=== PATIENT | female | born 1990 | race Hispanic/Latino ===

== ENCOUNTER 2022-12-30 17:33 | Emergency (ER) | payer OTHER ==
--- OUTSIDE RECORDS SUMMARY | 2022-12-30 17:38 | XMS REPORT | Continuity of Care Document ---
:1990 Author Organization [facility] t Address [address] [place] [address] Care Team Providers Name Role Phone Bryce Varghese Primary Care Physician Sandra Ascencio PA-C Attending Clinician SANDRA ASCENCIO Attending Clinician Unavailable Bryce Varghese Attending Clinician Doctor Unassigned, [place] Attending Clinician Unavailable Saihl Rios MD Attending Clinician Only, [facility] Test Attending Clinician Unavailable Sagar Shea MD Attending Clinician [facility] Attending Clinician Unavailable Ultrasound, Adc Mfm Attending Clinician Unavailable Donya Ramirez MD, [place] Attending Clinician [phone] SAHIL RIOS Attending Clinician Unavailable Lab, Adc Fam Pob I Attending Clinician Unavailable Jania Alarcon Attending Clinician Tom Craft PA-C Attending Clinician JANIA REEVES Attending Clinician Unavailable Ultrasound, Ang-Mfm Attending Clinician Unavailable Natacha Alaniz MD Attending Clinician 2, Adc Lab Attending Clinician Unavailable Jayson Cote MD Attending Clinician SAHIL RIOS Admitting Clinician Unavailable Sahil Rios MD Admitting Clinician Payers Payer Name Policy Type Policy Number Effective Date Expiration Date [facility] [id number] 2020 00:00:00 [employer] [place] - [id number] 2018 OUT OF STATE 00:00:00 Problems Condition Condition Condition Status Onset Resolution Last Treating Co mments Source Name Details Category Date Date Treatment Clinician Date 39 weeks 39 weeks Disease Active Unive rs gestation gestation 3-22 ity of of of 00:00: [place] 00 [facility] Encounter Encounter Disease Active Uni vers for for 3-22 ity of planned planned 00:00: [place] induction induction 00 [facility] of labor of labor [place] Liveborn Liveborn Disease Active Unive rs infant, of infant, of 3-22 [place] y of [place] , , 00 [place] born [facility] by vaginal by vaginal delivery delivery Morbid Morbid Disease Active Univers obesity obesity 3-15 [place] of with body [place] body 00:[place] mass index mass index 00 Me dical of of Branch 40.0-49.9 40.0-49.9 Morbid Morbid Disease Active Univers obesity obesity 3-15 ity of with body with body 00:[place] mass index mass index 00 Me dical of of Branch 40.0-49.9 40.0-49.9 Excessive Excessive Disease Active Uni vers 3-02 ity of growth growth 00:00: [place] affecting affecting 00 [facility] , , Br anch antepartum antepartum , single , single or or unspecifie unspecifie d fetus d fetus Anxiety Anxiety Disease Active 2019-08 Univers disorder, disorder, 09 ity of unspecifie [place] d type 00 [facility] Other Other Disease Active 2019-08 Univers rhinitis rhinitis 09 ity of 00:00: [place] 00 [facility] Branch Obesity Obesity Disease Active Univers (BMI (BMI 8-19 ity of 30-39.9) 30-39.9) 00:00: [place] 00 [facility] High-risk High-risk Disease Active Uni vers 8-19 ity of in third in third 00:00: [place] trimester trimester 00 [facility] Medication Medication Disease Active U nivers exposure exposure 8-19 ity of during during 00:00: [place] first first 00 Medical trimester trimester Bran ch of of Allergies, Adverse Reactions, Alerts Allergy Allergy Status Severity Reaction(s) Onset Inactive Treating Comm ents Source Name Type Date Date Clinician No Known DA Active [facility] NO KNOWN Drug Active Univers ALLERGIE Class ity of S [facility] Social History Social Habit Start Date Stop Date Quantity Comments Source [facility] Exposure to Not sure [facility] SARS-CoV-2 [facility] (event) [place] Alcohol intake 2020-10-22 2020-10-22 [facility]drinker [facility] 00:[facility]:00 00:00:00 (finding) [facility] Tobacco use and 2020-03-21 2020-03-21 Never used Universit y of exposure 00:00:00 00:00:00 [facility] Sex Ass[birth year] At [birth year] Universit y of 00:00:00 00:00:00 [facility] Smoking Status Start Date Stop Date Source Never smoker [facility] Medications Ordered Filled Start Stop Current Ordering Indication Dosage Frequency Signature Comments Components Source Medication Medication Date Date Medication? Clinician (SIG) Name Name LOESTRIN FE 2020-08 Yes [id number] 1{tbl} Take 1 Univers 1 mg-20 mcg 0-04 tablet by ity of (21)/75 mg 00:00: mouth [place] (7) tablet 00 daily. Medical Branch LOESTRIN FE 2020-08 Yes [id number] 1{tbl} Take 1 Univers 1 mg-20 mcg 0-04 tablet by ity of (21)/75 mg 00:00: mouth [place] (7) tablet 00 daily. Medical Branch lisdexamfet Yes Take by Uni vers amine 5-12 mouth. ity of dimesylate 19:38: [place] (VYVANSE 08 Medical ORAL) Branch CLONAZEPAM Yes Take by Univ ers ORAL 5-12 mouth. ity of 19:38: [place] [address] Medical Branch lisdexamfet Yes Take by Uni vers amine 5-12 mouth. ity of dimesylate 19:38: [place] ([place] [address] Medical ORAL) Branch CLONAZEPAM Yes Take by Univ ers ORAL 5-12 mouth. ity of 19:38: [place] [address] Medical Branch lisdexamfet Yes Take by Uni vers amine 5-12 mouth. ity of dimesylate 19:38: [place] ([place] [address] Medical ORAL) Branch CLONAZEPAM Yes Take by Univ ers ORAL 5-12 mouth. ity of 19:38: [place] [address] Medical Branch zolpidem 10 0 Yes 10mg Take 10 mg Univers mg tablet 5-12 by mouth ity of 19:37: at bedtime [place] 24 as needed Medical for Branch Insomnia. zolpidem 10 0 Yes 10mg Take 10 mg Univers mg tablet 5-12 by mouth ity of 19:37: at bedtime [place] 24 as needed Medical for Branch Insomnia. zolpidem 10 0 Yes 10mg Take 10 mg Univers mg tablet 5-12 by mouth ity of 19:37: at bedtime [place] 24 as needed Medical for Branch Insomnia. lisdexamfet Yes Take by Uni vers amine 5-12 mouth. ity of dimesylate 14:38: [place] ([place] [address] Medical ORAL) Branch CLONAZEPAM Yes Take by Univ ers ORAL 5-12 mouth. ity of 14:38: [place] [address] Medical Branch lisdexamfet Yes Take by Uni vers amine 5-12 mouth. ity of dimesylate 14:38: [place] [address] Medical ORAL) Branch CLONAZEPAM Yes Take by Univ ers ORAL 5-12 mouth. ity of 14:38: [place] [address] Medical Branch zolpidem 10 0 Yes 10mg Take 10 mg Univers mg tablet 5-12 by mouth ity of 14:37: at bedtime [place] 24 as needed Medical for Branch Insomnia. zolpidem 10 2020-0 Yes 10mg Take 10 mg Univers mg tablet 5-12 by mouth ity of 14:37: at bedtime [place] 24 as needed Medical for Branch Insomnia. LOESTRIN FE Yes [id number] 1{tbl} Take 1 Univers 1 mg-20 mcg 5-12 tablet by ity of (21)/75 mg 00:00: mouth [place] (7) tablet 00 daily. Medical Branch SERTraline Yes [id number] 25mg Take 1 U nivers (ZOLOFT) 25 5-12 tablet by ity of mg tablet 00:00: mouth [place] 00 daily. Medical Branch LOESTRIN FE Yes [id number] 1{tbl} Take 1 Univers 1 mg-20 mcg 5-12 tablet by ity of (21)/75 mg 00:00: mouth [place] (7) tablet 00 daily. Medical Branch SERTraline Yes [id number] 25mg Take 1 U nivers (ZOLOFT) 25 5-12 tablet by ity of mg tablet 00:00: mouth [place] 00 daily. Medical Branch LOESTRIN FE Yes [id number] 1{tbl} Take 1 Univers 1 mg-20 mcg 5-12 tablet by ity of (21)/75 mg 00:00: mouth [place] (7) tablet 00 daily. Medical Branch SERTraline Yes [id number] 25mg Take 1 U nivers (ZOLOFT) 25 5-12 tablet by ity of mg tablet 00:00: mouth [place] 00 daily. Medical Branch SERTraline Yes [id number] 25mg Take 1 U nivers (ZOLOFT) 25 5-12 tablet by ity of mg tablet 00:00: mouth [place] 00 daily. Medical Branch SERTraline Yes [id number] 25mg Take 1 U nivers (ZOLOFT) 25 5-12 tablet by ity of mg tablet 00:00: mouth [place] 00 daily. Medical Branch LOESTRIN FE 2020- No [id number] 1{tbl} Take 1 Univers 1 mg-20 mcg 5-12 10-04 tablet by it y of (21)/75 mg 00:00: 00:00 mouth [place] (7) tablet 00 :00 daily. Medical Branch LOESTRIN FE Yes [id number] 1{tbl} Take 1 Univers 1 mg-20 mcg 4-13 tablet by ity of (21)/75 mg 00:00: mouth [place] (7) tablet 00 daily. [facility] Branch LOESTRIN FE Yes [id number] 1{tbl} Take 1 Univers 1 mg-20 mcg 4-13 tablet by ity of (21)/75 mg 00:00: mouth [place] (7) tablet 00 daily. [facility] Branch LOESTRIN FE Yes [id number] 1{tbl} Take 1 Univers 1 mg-20 mcg 4-13 tablet by ity of (21)/75 mg 00:00: mouth [place] (7) tablet 00 daily. [facility] Branch LOESTRIN FE 2020- No [id number] 1{tbl} Take 1 Univers 1 mg-20 mcg 4-13 05-12 tablet by it y of (21)/75 mg 00:00: 00:00 mouth [place] (7) tablet 00 :00 daily. [facility] Branch LOESTRIN FE 2020- No [id number] 1{tbl} Take 1 Univers 1 mg-20 mcg 4-13 05-12 tablet by it y of (21)/75 mg 00:00: 00:00 mouth [place] (7) tablet 00 :00 daily. Medical Branch norethindro Yes [id number] 1{tbl} Take 1 Univers ne 0.35 mg 4-12 tablet by ity of tablet 00:00: mouth [place] 00 daily. Medical Branch SERTraline Yes [id number] 25mg Take 1 U nivers (ZOLOFT) 25 4-12 tablet by ity of mg tablet 00:00: mouth [place] 00 daily. Medical Branch SERTraline Yes [id number] 25mg Take 1 U nivers (ZOLOFT) 25 4-12 tablet by ity of mg tablet 00:00: mouth [place] 00 daily. [facility] Branch SERTraline Yes [id number] 25mg Take 1 U nivers (ZOLOFT) 25 4-12 tablet by ity of mg tablet 00:00: mouth [place] 00 daily. [facility] Branch SERTraline Yes [id number] 25mg Take 1 U nivers (ZOLOFT) 25 4-12 tablet by ity of mg tablet 00:00: mouth [place] 00 daily. Medical Branch SERTraline 2020- No [id number] 25mg Take 1 Univers (ZOLOFT) 25 4-12 05-12 tablet by it y of mg tablet 00:00: 00:00 mouth [place] 00 :00 daily. Medical Branch SERTraline 2020- No [id number] 25mg Take 1 Univers (ZOLOFT) 25 4-12 05-12 tablet by it y of mg tablet 00:00: 00:00 mouth [place] 00 :00 daily. Medical Branch norethindro 2020- No [id number] 1{tbl} Take 1 Univers ne 0.35 mg 4-12 -13 tablet by ity of tablet 00:00: 00:00 mouth [place] 00 :00 daily. Medical Branch zolpidem 10 Yes 10mg Take 10 mg Univers mg tablet 3-24 by mouth ity of 02:24: at bedtime [place] 59 as needed Medical for Branch Insomnia. levocetiriz Yes 5mg Take 5 mg U nivers ine (XYZAL) 3-24 by mouth ity of 5 mg tablet 02:24: every [place] 59 evening. Medical Branch zolpidem 10 Yes 10mg Take 10 mg Univers mg tablet 3-24 by mouth ity of 02:24: at bedtime [place] 59 as needed Medical for Branch Insomnia. levocetiriz Yes 5mg Take 5 mg U nivers ine (XYZAL) 3-24 by mouth ity of 5 mg tablet 02:24: every [place] 59 evening. Medical Branch zolpidem 10 Yes 10mg Take 10 mg Univers mg tablet 3-24 by mouth ity of 02:24: at bedtime [place] 59 as needed Medical for Branch Insomnia. levocetiriz Yes 5mg Take 5 mg U nivers ine (XYZAL) 3-24 by mouth ity of 5 mg tablet 02:24: every [place] 59 evening. Medical Branch zolpidem 10 Yes 10mg Take 10 mg Univers mg tablet 3-24 by mouth ity of 02:24: at bedtime [place] 59 as needed Medical for Branch Insomnia. levocetiriz 0 Yes 5mg Take 5 mg U nivers ine (XYZAL) 3-24 by mouth ity of 5 mg tablet 02:24: every [place] 59 evening. Medical Branch zolpidem 10 Yes 10mg Take 10 mg Univers mg tablet 3-24 by mouth ity of 02:24: at bedtime [place] 59 as needed Medical for Branch Insomnia. levocetiriz Yes 5mg Take 5 mg U nivers ine (XYZAL) 3-24 by mouth ity of 5 mg tablet 02:24: every [place] 59 evening. [facility] Branch zolpidem 10 0 Yes 10mg Take 10 mg Univers mg tablet 3-24 by mouth ity of 02:24: at bedtime [place] 59 as needed Medical for Branch Insomnia. levocetiriz Yes 5mg Take 5 mg U nivers ine (XYZAL) 3-24 by mouth ity of 5 mg tablet 02:24: every [place] 59 evening. Medical Branch levocetiriz Yes 5mg Take 5 mg U nivers ine (XYZAL) 3-24 by mouth ity of 5 mg tablet 02:24: every [place] 59 evening. Medical Branch levocetiriz Yes 5mg Take 5 mg U nivers ine (XYZAL) 3-24 by mouth ity of 5 mg tablet 02:24: every [place] 59 evening. [facility] Branch levocetiriz Yes 5mg Take 5 mg U nivers ine (XYZAL) 3-24 by mouth ity of 5 mg tablet 02:24: every [place] 59 evening. [facility] Branch levocetiriz Yes 5mg Take 5 mg U nivers ine (XYZAL) 3-23 by mouth ity of 5 mg tablet 21:24: every [place] 59 evening. [facility] Branch levocetiriz 0 Yes 5mg Take 5 mg U nivers ine (XYZAL) 3-23 by mouth ity of 5 mg tablet 21:24: every [place] 59 evening. [facility] busPIRone Yes 5mg 5 mg, Univers (BUSPAR) 3-23 Oral, BID, ity o f tablet 5 mg 01:00: First dose [place] 00 on Mon Medical 10/22/20 at [place] 1999, Until Discontinu ed, Routine rho(D) Yes 300ug 300 mcg, Univer s immune 3-23 Intramuscu ity of globulin 00:02: lar, ONCE, [place] (RHOGAM) 41 For 1 Medical syringe 300 dose, [place] mcg Conditiona l, Routine witch Ingrid 2020-0 Yes Topical, Un syed (TUCKS) 50 3-23 Q4HPRN, ity of % topical 00:02: Starting [place] pad 35 Mon [facility] 10/22/20 at [place] 1902, Until Discontinu ed, Routine, rectal/hem orrhoidal pain HYDROcodone 2020-0 Yes 1{tbl} 1 tablet, Univers -acetaminop 3-23 Oral, ity of hen (NORCO 00:02: Q6HPRN, [place] 5) 5-325 mg 35 Starting Medi juvenal tablet 1 [facility] tablet 10/22/20 at 1902, Until Discontinu ed, Routine, Pain (scale 7-10) ibuprofen 2020-0 Yes 600mg 600 mg, Univ ers (IBU) 3-23 Oral, ity of tablet 600 00:02: Q6HPRN, [place] mg 35 Starting Medical Mon [place] 10/22/20 at 1902, Until Discontinu ed, Routine, Pain (scale 4-6) acetaminoph 2020-0 Yes 650mg 650 mg, Un syed en 3-23 Oral, ity of (TYLENOL) 00:02: Q6HPRN, [place] tablet 650 35 Starting Medic al mg [facility] 10/22/20 at 1902, Until Discontinu ed, Routine, Pain (scale 1-3) diphenhydrA 2020-0 Yes 25mg 25 mg, Univ ers MINE 3-23 Oral, ity of (BENADRYL) 00:02: Q6HPRN, [place] tablet 25 35 Starting Medica l mg [facility] 10/22/20 at 1902, Until Discontinu ed, Routine, Sleep, Itching diphenhydrA 2020-0 Yes 25mg 25 mg, IV U nivers MINE-0.9 % 3-23 Piggyback, ity of sod.chlr 00:02: Administer [place] (BENADRYL) 35 over 30 Medica l 25 mg/50 mL Minutes, Bran ch piggyback Q6HPRN, 25 mg Starting [facility] 10/22/20 at 1902, Until Discontinu ed, Routine, Itching ondansetron Yes 4mg 4 mg, Slow Univers (ZOFRAN 3-23 IV Push, ity of (PF)) 00:02: Q8HPRN, [place] injection 4 35 Starting Medi juvenal mg Mon Branch 10/22/20 at 1902, Until Discontinu ed, Routine, Nausea and Vomiting (N/V) simethicone 0 Yes 160mg 160 mg, Un syed (GAS RELIEF 3-23 Oral, ity of (SIMETHICON 00:02: PC+HSPRN, [place] E)) 35 Starting Medical chewable Mon Branch tablet 160 10/22/20 at mg 1902, Until Discontinu ed, Routine, Gas magnesium 0 Yes 30mL 30 mL, Univer s hydroxide 3-23 Oral, ity of (MILK OF 00:02: QDAILYPRN, [place] MAGNESIA) 35 Starting Medica l 400 mg/5 mL Mon Branch suspension 10/22/20 at 30 mL 1902, Until Discontinu ed, Routine, Constipati on benzocaine- Yes Topical, Un syed menthol 3-23 PRN, ity of (DERMOPLAST 00:02: [place] 20-0.5 % 35 Mon Medical topical 10/22/20 at Branch spray 1902, Until Discontinu ed, Routine, Perineum discomfort Yes [id number] 1{tbl} Take 1 U nivers vitamin 3-23 tablet by ity of w/FA tablet 00:00: mouth [place] 00 daily. Medical Branch docusate Yes [id number] 240mg Take 1 Un syed calcium 240 3-23 capsule by it y of mg capsule 00:00: mouth once [place] 00 daily as Medical needed for Branch Constipati on. ferrous Yes [id number] 325mg Take 1 Uni vers sulfate 325 3-23 tablet by ity of mg (65 mg 00:00: mouth 2 [place] iron) 00 (two) Medical tablet times Branch daily. ibuprofen Yes [id number] 600mg Take 1 U nivers 600 mg 3-23 tablet by ity of tablet 00:00: mouth [place] 00 every 6 Medical (six) Branch hours as needed (Pain). Take with food or milk. Yes [id number] 1{tbl} Take 1 U nivers vitamin 3-23 tablet by ity of w/FA tablet 00:00: mouth [place] 00 daily. Medical Branch docusate Yes [id number] 240mg Take 1 Un syed calcium 240 3-23 capsule by it y of mg capsule 00:00: mouth once [place] 00 daily as Medical needed for Branch Constipati on. ferrous Yes [id number] 325mg Take 1 Uni vers sulfate 325 3-23 tablet by ity of mg (65 mg 00:00: mouth 2 [place] iron) 00 (two) Medical tablet times Branch daily. ibuprofen Yes [id number] 600mg Take 1 U nivers 600 mg 3-23 tablet by ity of tablet 00:00: mouth [place] 00 every 6 Medical (six) Branch hours as needed (Pain). Take with food or milk. Yes [id number] 1{tbl} Take 1 U nivers vitamin 3-23 tablet by ity of w/FA tablet 00:00: mouth [place] 00 daily. Medical Branch docusate Yes [id number] 240mg Take 1 Un syed calcium 240 3-23 capsule by it y of mg capsule 00:00: mouth once [place] 00 daily as Medical needed for Branch Constipati on. ferrous Yes [id number] 325mg Take 1 Uni vers sulfate 325 3-23 tablet by ity of mg (65 mg 00:00: mouth 2 [place] iron) 00 (two) Medical tablet times Branch daily. ibuprofen Yes [id number] 600mg Take 1 U nivers 600 mg 3-23 tablet by ity of tablet 00:00: mouth [place] 00 every 6 Medical (six) Branch hours as needed (Pain). Take with food or milk. Yes [id number] 1{tbl} Take 1 U nivers vitamin 3-23 tablet by ity of w/FA tablet 00:00: mouth [place] 00 daily. Medical Branch docusate Yes [id number] 240mg Take 1 Un syed calcium 240 3-23 capsule by it y of mg capsule 00:00: mouth once [place] 00 daily as Medical needed for Branch Constipati on. ferrous Yes [id number] 325mg Take 1 Uni vers sulfate 325 3-23 tablet by ity of mg (65 mg 00:00: mouth 2 [place] iron) 00 (two) Medical tablet times Branch daily. ibuprofen 2020-0 Yes [id number] 600mg Take 1 U nivers 600 mg 3-23 tablet by ity of tablet 00:00: mouth [place] 00 every 6 Medical (six) Branch hours as needed (Pain). Take with food or milk. 2020-0 Yes [id number] 1{tbl} Take 1 U nivers vitamin 3-23 tablet by ity of w/FA tablet 00:00: mouth [place] 00 daily. Medical Branch docusate 0 Yes [id number] 240mg Take 1 Un syed calcium 240 3-23 capsule by it y of mg capsule 00:00: mouth once [place] 00 daily as Medical needed for Branch Constipati on. ferrous 2020-0 Yes [id number] 325mg Take 1 Uni vers sulfate 325 3-23 tablet by ity of mg (65 mg 00:00: mouth 2 [place] iron) 00 (two) Medical tablet times Branch daily. ibuprofen 2020-0 Yes [id number] 600mg Take 1 U nivers 600 mg 3-23 tablet by ity of tablet 00:00: mouth [place] 00 every 6 Medical (six) Branch hours as needed (Pain). Take with food or milk. 2020-0 Yes [id number] 1{tbl} Take 1 U nivers vitamin 3-23 tablet by ity of w/FA tablet 00:00: mouth [place] 00 daily. Medical Branch docusate 0 Yes [id number] 240mg Take 1 Un syed calcium 240 3-23 capsule by it y of mg capsule 00:00: mouth once [place] 00 daily as Medical needed for Branch Constipati on. ferrous 2020-0 Yes [id number] 325mg Take 1 Uni vers sulfate 325 3-23 tablet by ity of mg (65 mg 00:00: mouth 2 [place] iron) 00 (two) Medical tablet times Branch daily. ibuprofen 2020-0 Yes [id number] 600mg Take 1 U nivers 600 mg 3-23 tablet by ity of tablet 00:00: mouth [place] 00 every 6 Medical (six) Branch hours as needed (Pain). Take with food or milk. 2020-0 Yes [id number] 1{tbl} Take 1 U nivers vitamin 3-23 tablet by ity of w/FA tablet 00:00: mouth [place] 00 daily. Medical Branch docusate 0 Yes [id number] 240mg Take 1 Un syed calcium 240 3-23 capsule by it y of mg capsule 00:00: mouth once [place] 00 daily as Medical needed for Branch Constipati on. ferrous 2020-0 Yes [id number] 325mg Take 1 Uni vers sulfate 325 3-23 tablet by ity of mg (65 mg 00:00: mouth 2 [place] iron) 00 (two) Medical tablet times Branch daily. ibuprofen 2020-0 Yes [id number] 600mg Take 1 U nivers 600 mg 3-23 tablet by ity of tablet 00:00: mouth [place] 00 every 6 Medical (six) Branch hours as needed (Pain). Take with food or milk. 2020-0 Yes [id number] 1{tbl} Take 1 U nivers vitamin 3-23 tablet by ity of w/FA tablet 00:00: mouth [place] 00 daily. Medical Branch docusate Yes [id number] 240mg Take 1 Un syed calcium 240 3-23 capsule by it y of mg capsule 00:00: mouth once [place] 00 daily as Medical needed for Branch Constipati on. ferrous 2020-0 Yes [id number] 325mg Take 1 Uni vers sulfate 325 3-23 tablet by ity of mg (65 mg 00:00: mouth 2 [place] iron) 00 (two) Medical tablet times Branch daily. ibuprofen 0 Yes [id number] 600mg Take 1 U nivers 600 mg 3-23 tablet by ity of tablet 00:00: mouth [place] 00 every 6 Medical (six) Branch hours as needed (Pain). Take with food or milk. 2020-0 Yes [id number] 1{tbl} Take 1 U nivers vitamin 3-23 tablet by ity of w/FA tablet 00:00: mouth [place] 00 daily. Medical Branch docusate 0 Yes [id number] 240mg Take 1 Un syed calcium 240 3-23 capsule by it y of mg capsule 00:00: mouth once [place] 00 daily as Medical needed for Branch Constipati on. ferrous 2020-0 Yes [id number] 325mg Take 1 Uni vers sulfate 325 3-23 tablet by ity of mg (65 mg 00:00: mouth 2 [place] iron) 00 (two) Medical tablet times Branch daily. ibuprofen 2021-0 Yes [id number] 600mg Take 1 U nivers 600 mg 3-23 tablet by ity of tablet 00:00: mouth [place] 00 every 6 Medical (six) Branch hours as needed (Pain). Take with food or milk. Yes [id number] 1{tbl} Take 1 U nivers vitamin 3-23 tablet by ity of w/FA tablet 00:00: mouth [place] 00 daily. Medical Branch docusate 0 Yes [id number] 240mg Take 1 Un syed calcium 240 3-23 capsule by it y of mg capsule 00:00: mouth once [place] 00 daily as Medical needed for Branch Constipati on. ferrous Yes [id number] 325mg Take 1 Uni vers sulfate 325 3-23 tablet by ity of mg (65 mg 00:00: mouth 2 [place] iron) 00 (two) Medical tablet times Branch daily. ibuprofen Yes [id number] 600mg Take 1 U nivers 600 mg 3-23 tablet by ity of tablet 00:00: mouth [place] 00 every 6 Medical (six) Branch hours as needed (Pain). Take with food or milk. Yes [id number] 1{tbl} Take 1 U nivers vitamin 3-23 tablet by ity of w/FA tablet 00:00: mouth [place] 00 daily. Medical Branch docusate 0 Yes [id number] 240mg Take 1 Un syed calcium 240 3-23 capsule by it y of mg capsule 00:00: mouth once [place] 00 daily as Medical needed for Branch Constipati on. ferrous 0 Yes [id number] 325mg Take 1 Uni vers sulfate 325 3-23 tablet by ity of mg (65 mg 00:00: mouth 2 [place] iron) 00 (two) Medical tablet times Branch daily. ibuprofen 0 Yes [id number] 600mg Take 1 U nivers 600 mg 3-23 tablet by ity of tablet 00:00: mouth [place] 00 every 6 Medical (six) Branch hours as needed (Pain). Take with food or milk. LR 1000 mL 2020-0 202- No 125mL/h 125 mL/hr, Univers + oxytocin 10-22 IV ity of 20 units IV 22:45: 22:24 Infusion, [place] Solution 00 :00 ONCE, Mon Medica l 10/22/20 at Branch 1745, For 1 dose
In fuse 999 mL /hr & amp;nbsp;o héctor 30 minutes and then decrease rate to 125 mL/hr for the remainder.
D5W-LR IV 2020- No 1000mL at 125 Uni vers infusion 10-22 mL/hr, IV ity o f 1,000 mL 09:45: 00:02 Infusion, [place] 00 :41 CONTINUOUS Medical , Starting Branch 10/22/20 at 0445, Until Thu10/22/20 at 1902, Routine lactated 2020- No 500mL at 999 Unive rs ringers IV 10-22 mL/hr, 500 it y of infusion 09:45: 14:05 mL, IV [place] 500 mL 00 :00 Infusion, Medical ONCE, 1 Branch dose, Thu10/22/20 at 0445, Routine lactated 2020- No 500mL at 999 Unive rs ringers IV 10-22 mL/hr, 500 it y of infusion 09:39: 00:02 mL, IV [place] 500 mL 11 :41 Infusion, Medical PRN - SEE Branch INSTRUCTIO NS, Starting Thu10/22/20 at 0439, Until Thu10/22/20 at 190, Routine FENTanyl PF 2020- No 100ug 100 mcg, Univers (SUBLIMAZE 10-22 Slow IV ity o f (PF)) 09:39: 00:02 Push, [place] injection 11 :41 Q1HPRN, Medical 100 mcg Starting Branch Thu10/22/20 at 0439, Until Thu10/22/20 at 1902, Routine, contractio n pain without an epidural and SVE < 8 cm and Cat I strip LR 1000 mL 2020- No 2mU/min 2-40 Uni vers + oxytocin 10-22 jimmie-unit it y of 20 units IV 09:39: 00:02 s/min [place] Solution 11 :41 (6-120 Medical mL/hr), IV Branch Infusion, TITRATE, Oxytocin Induction / Augmentati on of Labor, Starting Thu10/22/20 at 0439
In fuse IV through a controlled infusion pump at a proximal port on the peripheral IV line.&nbsp ; Sta rt at 2 jimmie-unit s/min and increase by 2 jimmie-unit s/min every 20 minutes according to oxytocin policy 7.11.52.&n bsp; Going over 20 jimmie-unit s/min requires faculty approval.& nbsp;&nbsp ;Max 40 jimmie-unit s/min.
sodium No 30mL 30 mL, Univers citrate-cit 10-2222 Oral, ity of augustin acid 09:39: 14:06 PRE-PROCED [place] (BICITRA) 11 :00 URE ONCE, Medic al [id number] 1 dose, Branch mg/5 mL Starting solution 30 Mon mL 10/22/20 at 0439, Until 10/22/20 at 0906, Routine, Surgery/Pr ocedure docusate Yes [id number] 100mg Take 1 Un syed (COLACE) 2-22 capsule by ity o f 100 mg 00:00: mouth [place] capsule 00 daily. [facility] Branch docusate Yes [id number] 100mg Take 1 Un syed (COLACE) 2-22 capsule by ity o f 100 mg 00:00: mouth [place] capsule 00 daily. [facility] Branch docusate Yes [id number] 100mg Take 1 Un syed (COLACE) 2-22 capsule by ity o f 100 mg 00:00: mouth [place] capsule 00 daily. [facility] Branch docusate Yes [id number] 100mg Take 1 Un syed (COLACE) 2-22 capsule by ity o f 100 mg 00:00: mouth [place] capsule 00 daily. [facility] Branch docusate Yes [id number] 100mg Take 1 Un syed (COLACE) 2-22 capsule by ity o f 100 mg 00:00: mouth [place] capsule 00 daily. [facility] Branch docusate Yes [id number] 100mg Take 1 Un syed (COLACE) 2-22 capsule by ity o f 100 mg 00:00: mouth [place] capsule 00 daily. [facility] Branch docusate Yes [id number] 100mg Take 1 Un syed (COLACE) 2-22 capsule by ity o f 100 mg 00:00: mouth [place] capsule 00 daily. Medical Branch docusate Yes [id number] 100mg Take 1 Un syed (COLACE) 2-22 capsule by ity o f 100 mg 00:00: mouth [place] capsule 00 daily. Medical Branch docusate Yes [id number] 100mg Take 1 Un syed (COLACE) 2-22 capsule by ity o f 100 mg 00:00: mouth [place] capsule 00 daily. Medical Branch docusate Yes [id number] 100mg Take 1 Un syed (COLACE) 2-22 capsule by ity o f 100 mg 00:00: mouth [place] capsule 00 daily. Medical Branch docusate Yes [id number] 100mg Take 1 Un syed (COLACE) 2-22 capsule by ity o f 100 mg 00:00: mouth [place] capsule 00 daily. Medical Branch docusate Yes [id number] 100mg Take 1 Un syed (COLACE) 2-22 capsule by ity o f 100 mg 00:00: mouth [place] capsule 00 daily. Medical Branch docusate Yes [id number] 100mg Take 1 Un syed (COLACE) 2-22 capsule by ity o f 100 mg 00:00: mouth [place] capsule 00 daily. Medical Branch docusate Yes [id number] 100mg Take 1 Un syed (COLACE) 2-22 capsule by ity o f 100 mg 00:00: mouth [place] capsule 00 daily. [facility] Branch docusate Yes [id number] 100mg Take 1 Un syed (COLACE) 2-22 capsule by ity o f 100 mg 00:00: mouth [place] capsule 00 daily. Medical Branch docusate Yes [id number] 100mg Take 1 Un syed (COLACE) 2-22 capsule by ity o f 100 mg 00:00: mouth [place] capsule 00 daily. Medical Branch docusate Yes [id number] 100mg Take 1 Un syed (COLACE) 2-22 capsule by ity o f 100 mg 00:00: mouth [place] capsule 00 daily. [facility] Branch docusate Yes [id number] 100mg Take 1 Un syed (COLACE) 2-22 capsule by ity o f 100 mg 00:00: mouth [place] capsule 00 daily. Medical Branch docusate 2021-0 Yes [id number] 100mg Take 1 Un syed (COLACE) 2-22 capsule by ity o f 100 mg 00:00: mouth [place] capsule 00 daily. Medical Branch docusate 0 Yes [id number] 100mg Take 1 Un syed (COLACE) 2-22 capsule by ity o f 100 mg 00:00: mouth [place] capsule 00 daily. Medical Branch docusate Yes [id number] 100mg Take 1 Un syed (COLACE) 2-22 capsule by ity o f 100 mg 00:00: mouth [place] capsule 00 daily. Medical Branch BUSPIRONE 5 0 Yes [id number] TAKE 1 Univers mg tablet 1-27 TABLET BY ity o f 00:00: MOUTH [place] 00 TWICE A Medical DAY Branch BUSPIRONE 5 0 Yes TAKE 1 Univers mg tablet 1-27 TABLET BY ity o f 00:00: MOUTH [place] 00 TWICE A Medical DAY Branch BUSPIRONE 5 2020-0 Yes TAKE 1 Univers mg tablet 1-27 TABLET BY ity o f 00:00: MOUTH [place] 00 TWICE A Medical DAY Branch BUSPIRONE 5 2020-0 Yes TAKE 1 Univers mg tablet 1-27 TABLET BY ity o f 00:00: MOUTH [place] 00 TWICE A Medical DAY Branch BUSPIRONE 5 2020-0 Yes TAKE 1 Univers mg tablet 1-27 TABLET BY ity o f 00:00: MOUTH [place] 00 TWICE A Medical DAY Branch BUSPIRONE 5 2020-0 Yes TAKE 1 Univers mg tablet 1-27 TABLET BY ity o f 00:00: MOUTH [place] 00 TWICE A Medical DAY Branch BUSPIRONE 5 2020-0 Yes TAKE 1 Univers mg tablet 1-27 TABLET BY ity o f 00:00: MOUTH [place] 00 TWICE A Medical DAY Branch BUSPIRONE 5 2020-0 Yes TAKE 1 Univers mg tablet 1-27 TABLET BY ity o f 00:00: MOUTH [place] 00 TWICE A Medical DAY Branch BUSPIRONE 5 2020-0 Yes TAKE 1 Univers mg tablet 1-27 TABLET BY ity o f 00:00: MOUTH [place] 00 TWICE A Medical DAY Branch BUSPIRONE 5 2020-0 Yes TAKE 1 Univers mg tablet 1-27 TABLET BY ity o f 00:00: MOUTH 00 TWICE A Medical DAY Branch BUSPIRONE 5 2020-0 Yes [id number] TAKE 1 Univers mg tablet 1-27 TABLET BY ity o f 00:00: MOUTH 00 TWICE A Medical DAY Branch BUSPIRONE 5 2020-0 Yes [id number] TAKE 1 Univers mg tablet 1-27 TABLET BY ity o f 00:00: MOUTH 00 TWICE A Medical DAY Branch BUSPIRONE 5 2020-0 Yes [id number] TAKE 1 Univers mg tablet 1-27 TABLET BY ity o f 00:00: MOUTH 00 TWICE A Medical DAY Branch BUSPIRONE 5 2020-0 Yes [id number] TAKE 1 Univers mg tablet 1-27 TABLET BY ity o f 00:00: MOUTH 00 TWICE A Medical DAY Branch BUSPIRONE 5 2020-0 Yes [id number] TAKE 1 Univers mg tablet 1-27 TABLET BY ity o f 00:00: MOUTH 00 TWICE A Medical DAY Branch BUSPIRONE 5 2020-0 Yes [id number] TAKE 1 Univers mg tablet 1-27 TABLET BY ity o f 00:00: MOUTH 00 TWICE A Medical DAY Branch BUSPIRONE 5 2020-0 Yes [id number] TAKE 1 Univers mg tablet 1-27 TABLET BY ity o f 00:00: MOUTH TWICE A Medical DAY Branch BUSPIRONE 5 2020-0 Yes [id number] TAKE 1 Univers mg tablet 1-27 TABLET BY ity o f 00:00: MOUTH 00 TWICE A Medical DAY Branch BUSPIRONE 5 2020-0 Yes [id number] TAKE 1 Univers mg tablet 1-27 TABLET BY ity o f 00:00: MOUTH 00 TWICE A Medical DAY Branch BUSPIRONE 5 2020-0 Yes [id number] TAKE 1 Univers mg tablet 1-27 TABLET BY ity o f 00:00: MOUTH 00 TWICE A Medical DAY Branch BUSPIRONE 5 2020-0 Yes [id number] TAKE 1 Univers mg tablet 1-27 TABLET BY ity o f 00:00: MOUTH 00 TWICE A Medical DAY Branch BUSPIRONE 5 2020-0 Yes [id number] TAKE 1 Univers mg tablet 1-27 TABLET BY ity o f 00:00: MOUTH 00 TWICE A Medical DAY Branch BUSPIRONE 5 2020-0 Yes [id number] TAKE 1 Univers mg tablet 1-27 TABLET BY ity o f 00:00: MOUTH [place] 00 TWICE A Medical DAY Branch lisdexamfet 2019-08- No 30mg Take 30 mg Univers amine 2-14 12-14 by mouth ity of (VYVANSE) 16:30: 00:00 every [place] 30 mg 11 :00 morning. Medical capsule Branch clonazePAM 2019-08- No 1mg Take 1 mg U nivers 1 mg tablet 2-14 12-14 by mouth 3 i ty of 16:30: 00:00 (three) [place] 05 :00 times Medical daily. Branch levocetiriz 2019-08 Yes 5mg Take 5 mg U nivers ine (XYZAL) 2-14 by mouth ity of 5 mg tablet 15:23: every [place] 58 evening. Medical Branch levocetiriz 2019-08 Yes 5mg Take 5 mg U nivers ine (XYZAL) 2-14 by mouth ity of 5 mg tablet 15:23: every [place] 58 evening. Medical Branch levocetiriz 2019-08 Yes 5mg Take 5 mg U nivers ine (XYZAL) 2-14 by mouth ity of 5 mg tablet 15:23: every [place] 58 evening. Medical Branch levocetiriz 2019-08 Yes 5mg Take 5 mg U nivers ine (XYZAL) 2-14 by mouth ity of 5 mg tablet 15:23: every [place] 58 evening. Medical Branch levocetiriz 2019-08 Yes 5mg Take 5 mg U nivers ine (XYZAL) 2-14 by mouth ity of 5 mg tablet 15:23: every [place] 58 evening. Medical Branch levocetiriz 2019-08 Yes 5mg Take 5 mg U nivers ine (XYZAL) 2-14 by mouth ity of 5 mg tablet 15:23: every [place] 58 evening. Medical Branch levocetiriz 2019-08 Yes 5mg Take 5 mg U nivers ine (XYZAL) 2-14 by mouth ity of 5 mg tablet 15:23: every [place] 58 evening. Medical Branch levocetiriz 2019-08 Yes 5mg Take 5 mg U nivers ine (XYZAL) 2-14 by mouth ity of 5 mg tablet 15:23: every [place] 58 evening. Medical Branch levocetiriz 2019-08 Yes 5mg Take 5 mg U nivers ine (XYZAL) 2-14 by mouth ity of 5 mg tablet 15:23: every [place] 58 evening. Medical Branch levocetiriz 2019- Yes 5mg Take 5 mg U nivers ine (XYZAL) 2-14 by mouth ity of 5 mg tablet 15:23: every [place] 58 evening. Medical Branch levocetiriz 2019-08 Yes 5mg Take 5 mg U nivers ine (XYZAL) 2-14 by mouth ity of 5 mg tablet 15:23: every [place] 58 evening. Medical Branch levocetiriz 2019- Yes 5mg Take 5 mg U nivers ine (XYZAL) 2-14 by mouth ity of 5 mg tablet 15:23: every [place] 58 evening. Medical Branch levocetiriz 2019-08 Yes 5mg Take 5 mg U nivers ine (XYZAL) 2-14 by mouth ity of 5 mg tablet 15:23: every [place] 58 evening. Medical Branch levocetiriz 2019-08 Yes 5mg Take 5 mg U nivers ine (XYZAL) 2-14 by mouth ity of 5 mg tablet 15:23: every [place] 58 evening. Medical Branch levocetiriz 2019-08 Yes 5mg Take 5 mg U nivers ine (XYZAL) 2-14 by mouth ity of 5 mg tablet 15:23: every [place] 58 evening. Medical Branch levocetiriz 2019-08 Yes 5mg Take 5 mg U nivers ine (XYZAL) 2-14 by mouth ity of 5 mg tablet 15:23: every [place] 58 evening. Medical Branch levocetiriz 2019-08 Yes 5mg Take 5 mg U nivers ine (XYZAL) 2-14 by mouth ity of 5 mg tablet 15:23: every [place] 58 evening. Medical Branch levocetiriz 2019-08 Yes 5mg Take 5 mg U nivers ine (XYZAL) 2-14 by mouth ity of 5 mg tablet 15:23: every [place] 58 evening. Medical Branch levocetiriz 2019-08 Yes 5mg Take 5 mg U nivers ine (XYZAL) 2-14 by mouth ity of 5 mg tablet 15:23: every [place] 58 evening. Medical Branch levocetiriz 2019- Yes 5mg Take 5 mg U nivers ine (XYZAL) 2-14 by mouth ity of 5 mg tablet 15:23: every [place] 58 evening. Medical Branch clonazePAM 2019-08 Yes 1mg Take 1 mg Un syed 1 mg tablet 1-10 by mouth 3 it y of 03:26: (three) [place] 57 times Medical daily. Branch clonazePAM 2019-08 Yes 1mg Take 1 mg Un syed 1 mg tablet 1-10 by mouth 3 it y of 03:26: (three) [place] 57 times Medical daily. Branch clonazePAM 2019-08 Yes 1mg Take 1 mg Un syed 1 mg tablet 1-10 by mouth 3 it y of 03:26: (three) [place] 57 times Medical daily. Branch busPIRone 5 2019-08 Yes [id number] 5mg Take 1 Univers mg tablet 1-09 tablet by ity o f 00:00: mouth 2 00 (two) Medical times Branch daily. busPIRone 5 2019-08 Yes [id number] 5mg Take 1 Univers mg tablet 1-09 tablet by ity o f 00:00: mouth 2 00 (two) Medical times Branch daily. busPIRone 5 2019-08 Yes [id number] 5mg Take 1 Univers mg tablet 1-09 tablet by ity o f 00:00: mouth 2 (two) Medical times Branch daily. busPIRone 5 2019-08 Yes [id number] 5mg Take 1 Univers mg tablet 1-09 tablet by ity o f 00:00: mouth 2 (two) Medical times Branch daily. busPIRone 5 2019-08 Yes [id number] 5mg Take 1 Univers mg tablet 1-09 tablet by ity o f 00:00: mouth 2 (two) Medical times Branch daily. busPIRone 5 2019-08 Yes [id number] 5mg Take 1 Univers mg tablet 1-09 tablet by ity o f 00:00: mouth 2 (two) Medical times Branch daily. busPIRone 5 2019-08 Yes [id number] 5mg Take 1 Univers mg tablet 1-09 tablet by ity o f 00:00: mouth 2 (two) Medical times Branch daily. busPIRone 5 2019-08 Yes [id number] 5mg Take 1 Univers mg tablet 1-09 tablet by ity o f 00:00: mouth 2 (two) Medical times Branch daily. busPIRone 5 2019-08 Yes [id number] 5mg Take 1 Univers mg tablet 1-09 tablet by ity o f 00:00: mouth 2 [place] 00 (two) Medical times Branch daily. busPIRone 5 2019-08- No [id number] 5mg Take 1 Univers mg tablet 08-11 tablet by ity of 00:00: 00:00 mouth 2 [place] 00 :00 (two) Medical times Branch daily. busPIRone 5 2019-08- No [id number] 5mg Take 1 Univers mg tablet 08-11 tablet by ity of 00:00: 00:00 mouth 2 [place] 00 :00 (two) Medical times Branch daily. busPIRone 5 2019-08- No [id number] 5mg Take 1 Univers mg tablet 08-11 tablet by ity of 00:00: 00:00 mouth 2 [place] 00 :00 (two) Medical times Branch daily. lisdexamfet 2019-08 Yes 30mg Take 30 mg Univers amine 0-08 by mouth ity of (VYVANSE) 21:32: every [place] 30 mg 00 morning. Medical capsule Branch lisdexamfet 2019-08 Yes 30mg Take 30 mg Univers amine 0-08 by mouth ity of (VYVANSE) 21:32: every [place] 30 mg 00 morning. Medical capsule Branch lisdexamfet 2019-08 Yes 30mg Take 30 mg Univers amine 0-08 by mouth ity of (VYVANSE) 21:32: every [place] 30 mg 00 morning. Medical capsule Branch lisdexamfet 2019-08 Yes 30mg Take 30 mg Univers amine 0-08 by mouth ity of (VYVANSE) 21:32: every [place] 30 mg 00 morning. Medical capsule Branch lisdexamfet 2019-08 Yes 30mg Take 30 mg Univers amine 0-08 by mouth ity of (VYVANSE) 21:32: every [place] 30 mg 00 morning. Medical capsule Branch lisdexamfet Yes 30mg Take 30 mg Univers amine 8-19 by mouth ity of (VYVANSE) 20:16: every [place] 30 mg 35 morning. Medical capsule Branch clonazePAM Yes 1mg Take 1 mg Un syed 1 mg tablet 8-19 by mouth 3 it y of 20:16: (three) [place] 35 times Medical daily. Branch zolpidem 10 2020-0 Yes 10mg Take 10 mg Univers mg tablet 8-19 by mouth ity of 20:16: at bedtime [place] 35 as needed Medical for Branch Insomnia. lisdexamfet 2020-0 Yes 30mg Take 30 mg Univers amine 8-19 by mouth ity of (VYVANSE) 20:16: every [place] 30 mg 35 morning. Medical capsule Branch clonazePAM 2020-0 Yes 1mg Take 1 mg Un syed 1 mg tablet 8-19 by mouth 3 it y of 20:16: (three) [place] 35 times Medical daily. Branch zolpidem 10 2020-0 Yes 10mg Take 10 mg Univers mg tablet 8-19 by mouth ity of 20:16: at bedtime [place] 35 as needed Medical for Branch Insomnia. lisdexamfet 2020-0 Yes 30mg Take 30 mg Univers amine 8-19 by mouth ity of (VYVANSE) 20:16: every [place] 30 mg 35 morning. Medical capsule Branch clonazePAM 2020-0 Yes 1mg Take 1 mg Un syed 1 mg tablet 8-19 by mouth 3 it y of 20:16: (three) [place] 35 times Medical daily. Branch zolpidem 10 2020-0 Yes 10mg Take 10 mg Univers mg tablet 8-19 by mouth ity of 20:16: at bedtime [place] 35 as needed Medical for Branch Insomnia. lisdexamfet 2020-0 Yes 30mg Take 30 mg Univers amine 8-19 by mouth ity of (VYVANSE) 20:16: every [place] 30 mg 35 morning. Medical capsule Branch clonazePAM 2020-0 Yes 1mg Take 1 mg Un syed 1 mg tablet 8-19 by mouth 3 it y of 20:16: (three) [place] 35 times Medical daily. Branch zolpidem 10 2020-0 Yes 10mg Take 10 mg Univers mg tablet 8-19 by mouth ity of 20:16: at bedtime [place] 35 as needed Medical for Branch Insomnia. lisdexamfet 2020-0 Yes 30mg Take 30 mg Univers amine 8-19 by mouth ity of (VYVANSE) 20:16: every [place] 30 mg 35 morning. Medical capsule Branch clonazePAM 2020-0 Yes 1mg Take 1 mg Un syed 1 mg tablet 8-19 by mouth 3 it y of 20:16: (three) [place] 35 times Medical daily. Branch zolpidem 10 2020-0 Yes 10mg Take 10 mg Univers mg tablet 8-19 by mouth ity of 20:16: at bedtime [place] 35 as needed Medical for Branch Insomnia. lisdexamfet 2020-0 Yes 30mg Take 30 mg Univers amine 8-19 by mouth ity of (VYVANSE) 20:16: every [place] 30 mg 35 morning. Medical capsule Branch clonazePAM 2020-0 Yes 1mg Take 1 mg Un syed 1 mg tablet 8-19 by mouth 3 it y of 20:16: (three) [place] 35 times Medical daily. Branch zolpidem 10 2020-0 Yes 10mg Take 10 mg Univers mg tablet 8-19 by mouth ity of 20:16: at bedtime [place] 35 as needed Medical for Branch Insomnia. lisdexamfet 2020-0 Yes 30mg Take 30 mg Univers amine 8-19 by mouth ity of (VYVANSE) 20:16: every [place] 30 mg 35 morning. Medical capsule Branch clonazePAM 2020-0 Yes 1mg Take 1 mg Un syed 1 mg tablet 8-19 by mouth 3 it y of 20:16: (three) [place] 35 times Medical daily. Branch zolpidem 10 2020-0 Yes 10mg Take 10 mg Univers mg tablet 8-19 by mouth ity of 20:16: at bedtime [place] 35 as needed Medical for Branch Insomnia. lisdexamfet 2020-0 Yes 30mg Take 30 mg Univers amine 8-19 by mouth ity of (VYVANSE) 20:16: every [place] 30 mg 35 morning. Medical capsule Branch clonazePAM 2020-0 Yes 1mg Take 1 mg Un syed 1 mg tablet 8-19 by mouth 3 it y of 20:16: (three) [place] 35 times Medical daily. Branch zolpidem 10 2020-0 Yes 10mg Take 10 mg Univers mg tablet 8-19 by mouth ity of 20:16: at bedtime [place] 35 as needed Medical for Branch Insomnia. lisdexamfet 2020-0 Yes 30mg Take 30 mg Univers amine 8-19 by mouth ity of (VYVANSE) 20:16: every [place] 30 mg 35 morning. Medical capsule Branch clonazePAM 2020-0 Yes 1mg Take 1 mg Un syed 1 mg tablet 8-19 by mouth 3 it y of 20:16: (three) [place] 35 times Medical daily. Branch zolpidem 10 2020-0 Yes 10mg Take 10 mg Univers mg tablet 8-19 by mouth ity of 20:16: at bedtime [place] 35 as needed Medical for Branch Insomnia. lisdexamfet 2020-0 Yes 30mg Take 30 mg Univers amine 8-19 by mouth ity of (VYVANSE) 20:16: every [place] 30 mg 35 morning. Medical capsule Branch clonazePAM 2020-0 Yes 1mg Take 1 mg Un syed 1 mg tablet 8-19 by mouth 3 it y of 20:16: (three) [place] 35 times Medical daily. Branch zolpidem 10 2020-0 Yes 10mg Take 10 mg Univers mg tablet 8-19 by mouth ity of 20:16: at bedtime [place] 35 as needed Medical for Branch Insomnia. clonazePAM 2020-0 Yes 1mg Take 1 mg Un syed 1 mg tablet 8-19 by mouth 3 it y of 20:16: (three) [place] 35 times Medical daily. Branch zolpidem 10 2020-0 Yes 10mg Take 10 mg Univers mg tablet 8-19 by mouth ity of 20:16: at bedtime [place] 35 as needed Medical for Branch Insomnia. clonazePAM 2020-0 Yes 1mg Take 1 mg Un syed 1 mg tablet 8-19 by mouth 3 it y of 20:16: (three) [place] 35 times Medical daily. Branch zolpidem 10 2020-0 Yes 10mg Take 10 mg Univers mg tablet 8-19 by mouth ity of 20:16: at bedtime [place] 35 as needed Medical for Branch Insomnia. zolpidem 10 2020-0 Yes 10mg Take 10 mg Univers mg tablet 8-19 by mouth ity of 20:16: at bedtime [place] 35 as needed Medical for Branch Insomnia. zolpidem 10 2020-0 Yes 10mg Take 10 mg Univers mg tablet 8-19 by mouth ity of 20:16: at bedtime [place] 35 as needed Medical for Branch Insomnia. zolpidem 10 2020-0 Yes 10mg Take 10 mg Univers mg tablet 8-19 by mouth ity of 20:16: at bedtime [place] 35 as needed Medical for Branch Insomnia. zolpidem 10 2020-0 Yes 10mg Take 10 mg Univers mg tablet 8-19 by mouth ity of 20:16: at bedtime [place] 35 as needed Medical for Branch Insomnia. zolpidem 10 2020-0 Yes 10mg Take 10 mg Univers mg tablet 8-19 by mouth ity of 20:16: at bedtime [place] 35 as needed Medical for Branch Insomnia. zolpidem 10 2020-0 Yes 10mg Take 10 mg Univers mg tablet 8-19 by mouth ity of 20:16: at bedtime [place] 35 as needed Medical for Branch Insomnia. zolpidem 10 2020-0 Yes 10mg Take 10 mg Univers mg tablet 8-19 by mouth ity of 20:16: at bedtime [place] 35 as needed Medical for Branch Insomnia. zolpidem 10 2020-0 Yes 10mg Take 10 mg Univers mg tablet 8-19 by mouth ity of 20:16: at bedtime [place] 35 as needed Medical for Branch Insomnia. zolpidem 10 2020-0 Yes 10mg Take 10 mg Univers mg tablet 8-19 by mouth ity of 20:16: at bedtime [place] 35 as needed Medical for Branch Insomnia. zolpidem 10 2020-0 Yes 10mg Take 10 mg Univers mg tablet 8-19 by mouth ity of 20:16: at bedtime [place] 35 as needed Medical for Branch Insomnia. zolpidem 10 2020-0 Yes 10mg Take 10 mg Univers mg tablet 8-19 by mouth ity of 20:16: at bedtime [place] 35 as needed Medical for Branch Insomnia. zolpidem 10 2020-0 Yes 10mg Take 10 mg Univers mg tablet 8-19 by mouth ity of 20:16: at bedtime [place] 35 as needed Medical for Branch Insomnia. zolpidem 10 2020-0 Yes 10mg Take 10 mg Univers mg tablet 8-19 by mouth ity of 20:16: at bedtime [place] 35 as needed Medical for Branch Insomnia. zolpidem 10 2020-0 Yes 10mg Take 10 mg Univers mg tablet 8-19 by mouth ity of 20:16: at bedtime [place] 35 as needed Medical for Branch Insomnia. zolpidem 10 2020-0 Yes 10mg Take 10 mg Univers mg tablet 8-19 by mouth ity of 20:16: at bedtime [place] 35 as needed Medical for Branch Insomnia. zolpidem 10 2020-0 Yes 10mg Take 10 mg Univers mg tablet 8-19 by mouth ity of 20:16: at bedtime [place] 35 as needed Medical for Branch Insomnia. zolpidem 10 2020-0 Yes 10mg Take 10 mg Univers mg tablet 8-19 by mouth ity of 20:16: at bedtime [place] 35 as needed Medical for Branch Insomnia. zolpidem 10 2020-0 Yes 10mg Take 10 mg Univers mg tablet 8-19 by mouth ity of 20:16: at bedtime [place] 35 as needed Medical for Branch Insomnia. zolpidem 10 2020-0 Yes 10mg Take 10 mg Univers mg tablet 8-19 by mouth ity of 20:16: at bedtime [place] 35 as needed Medical for Branch Insomnia. zolpidem 10 2020-0 Yes 10mg Take 10 mg Univers mg tablet 8-19 by mouth ity of 20:16: at bedtime [place] 35 as needed Medical for Branch Insomnia. zolpidem 10 2020-0 Yes 10mg Take 10 mg Univers mg tablet 8-19 by mouth ity of 20:16: at bedtime [place] 35 as needed Medical for Branch Insomnia. zolpidem 10 2020-0 Yes 10mg Take 10 mg Univers mg tablet 8-19 by mouth ity of 20:16: at bedtime [place] 35 as needed Medical for Branch Insomnia. zolpidem 10 2020-0 Yes 10mg Take 10 mg Univers mg tablet 8-19 by mouth ity of 20:16: at bedtime [place] 35 as needed Medical for Branch Insomnia. Immunizations Ordered Filled Immunization Date Status Comments [facility] e Immunization Name Name [facility] 2020-08-13 Completed [facility] 00:[facility]00 [facility] TD 2020-08-13 Completed [facility] of 00[facility]00:00 [facility] TDAP 2020-08-13 Completed [facility] of 00:00:00 [facility] TDAP 2020-08-13 Completed [facility] of 00:00:00 [facility] TDAP 2020-08-13 Completed [facility] of 00[facility]00:00 [facility] TDAP 2020-08-13 Completed [facility] of 00:00:00 [facility] TDAP 2020-08-13 Completed [facility] of 00:00:00 [facility] TDAP 2020-08-13 Completed University of 00:00:00 [facility] TDAP 2020-08-13 Completed University of 00[facility]00:00 [facility] TDAP 2020-08-13 Completed [facility] of 00:00:00 [facility] TDAP 2020-08-13 Completed [facility] of 00:00:00 [facility] TDAP 2020-08-13 Completed [facility] of 00[facility]00:00 [facility] TDAP 2020-08-13 Completed University of 00:00:00 [place] [facility] TDAP 2020-08-13 Completed [facility] of 00:00:00 [place] [facility] TDAP 2020-08-13 Completed [facility] of 00:00:00 [place] [facility] TDAP 2020-08-13 Completed University of 00:00:00 [place] [facility] TDAP 2020-08-13 Completed University of 00:00:00 [place] [facility] TDAP 2020-08-13 Completed University of 00:00:00 [place] [facility] TDAP 2020-08-13 Completed University of 00:00:00 [place] [facility] TDAP 2020-08-13 Completed University of 00:00:00 [place] [facility] TDAP 2020-08-13 Completed University of 00:00:00 [place] [facility] TDAP 2020-08-13 Completed University of 00:00:00 [place] [facility] TDAP 2020-08-13 Completed University of 00:00:00 [facility] TDAP 2020-08-13 Completed University of 00:00:00 [place] [facility] TDAP 2020-08-13 Completed University of 00:00:00 [place] [facility] TDAP 2020-08-13 Completed University of 00:00:00 [place] [facility] TDAP 2020-08-13 Completed University of 00:00:00 [facility] TDAP 2020-08-13 Completed University of 00:00:00 [facility] TDAP 2020-08-13 Completed [facility] of 00:00:00 [facility] Vital Signs Vital Name Observation Time Observation Value Comments Source Systolic blood 2020-12-12 19:36:00 140 mm[Hg] Univer sity of pressure [facility] Diastolic blood 2020-12-12 19:36:00 73 mm[Hg] Unive rsity of pressure [facility] Heart rate 2020-12-12 19:36:00 63 /min [facility] ty [facility] Body temperature 2020-12-12 19:36:00 36.61 [place] [facility] ersity [facility] Respiratory rate 2020-12-12 19:36:00 18 /min Univ ersity [facility] Body height 2020-12-12 19:36:00 157.[address] [address] [facility] Body weight 2020-12-12 19:36:00 90.266 kg Universi ty [facility] [place] [facility] BMI 2020-12-12 19:36:00 36.40 kg/m2 Universi [facility] [place] [facility] Systolic blood 2020-11-12 18:39:00 133 mm[Hg] Univer sity of pressure [place] [facility] Diastolic blood 2020-11-12 18:39:00 89 mm[Hg] Unive rsity of pressure [facility] Heart rate 2020-11-12 18:39:00 72 /min [facility]i ty of [facility] Body temperature 2020-11-12 18:39:00 36.94 [place] [facility] ersity of [facility] Respiratory rate 2020-11-12 18:39:00 18 /min Univ ersity of [facility] Body height 2020-11-12 18:39:00 157.5 cm Universi [facility] [place] [facility] Body weight 2020-11-12 18:39:[address] [facility] BMI 2020-11-12 18:39:00 37.31 kg/m2 [facility] [place] Systolic blood 2020-10-23 21:15:00 121 mm[Hg] Univer sity of pressure [facility] Diastolic blood 2020-10-23 21:15:00 54 mm[Hg] Unive rsity of pressure [facility] Heart rate 2020-10-23 21:15:00 67 /min [facility] Body temperature 2020-10-23 21:15:00 36.94 Christie [facility] [address]ity of [facility] Respiratory rate 2020-10-23 21:15:00 18 /min [facility] Oxygen saturation in 2020-10-23 21:15:00 97 /min [facility] Ar[facility] blood by [facility] Pulse oximetry Branch Body height 2020-10-22 09:22:00 157.5 cm [facility] [place] Body weight 2020-10-22 09:22:00 [address] [facility] BMI 2020-10-22 09:22:00 40.60 kg/m2 Universi ty of [facility] Systolic blood 2020-10-15 16:24:00 131 mm[Hg] Univer sity of pressure [facility] Diastolic blood 2020-10-15 16:24:00 83 mm[Hg] Unive rsity of pressure [facility] Heart rate 2020-10-15 16:24:00 88 /min [facility] Body temperature 2020-10-15 16:24:00 36.78 Christie [facility] Respiratory rate 2020-10-15 16:24:00 18 /min Univ [facility] Body height 2020-10-15 16:24:00 157.5 cm [facility] Body weight 2020-10-15 16:24:00 99.338 kg [facility] BMI 2020-10-15 16:24:00 40.06 kg/m2 [facility] Systolic blood 2020-10-11 16:12:00 123 mm[Hg] Univer sity of pressure [facility] Diastolic blood 2020-10-11 16:12:00 85 mm[Hg] Unive rsity of pressure [facility] Heart rate 2020-10-11 16:12:00 87 /min [facility] Body temperature 2020-10-11 16:12:00 36.5 Christie [facility] Respiratory rate 2020-10-11 16:12:00 18 /min Univ [facility] Body height 2020-10-11 16:12:00 157.5 cm [facility] Body weight 2020-10-11 16:12:00 97.523 kg [facility] BMI 2020-10-11 16:12:00 39.32 kg/m2 [facility] Systolic blood 2020-10-08 19:24:00 137 mm[Hg] Univer sity of pressure [facility] Diastolic blood 2020-10-08 19:24:00 83 mm[Hg] Unive rsity of pressure [facility] Heart rate 2020-10-08 19:24:00 84 /min [facility] Body temperature 2020-10-08 19:24:00 36.56 Christie [facility] Respiratory rate 2020-10-08 19:24:00 18 /min Univ [facility] Body height 2020-10-08 19:24:00 157.5 cm [facility] Body weight 2020-10-08 19:24:00 97.977 kg [facility] BMI 2020-10-08 19:24:00 39.51 kg/m2 [facility] Systolic blood 2020-10-04 17:23:00 130 mm[Hg] Univer sity of pressure [facility] Diastolic blood 2020-10-04 17:23:00 73 mm[Hg] Unive rsity of pressure [facility] Heart rate 2020-10-04 17:23:00 76 /min [facility] Body temperature 2020-10-04 17:23:00 36.78 Christie [facility] Respiratory rate 2020-10-04 17:23:00 18 /min [facility] Body height 2020-10-04 17:23:00 157.5 cm [facility] Body weight 2020-10-04 17:23:00 97.977 kg [facility] BMI 2020-10-04 17:23:00 39.51 kg/m2 [facility] Systolic blood 2020-10-02 14:14:00 129 mm[Hg] Univer [facility]ity of pressure [facility] Diastolic blood 2020-10-02 14:14:00 82 mm[Hg] Unive rsity of pressure [facility] Heart rate 2020-10-02 14:14:00 87 /min [facility] Body temperature 2020-10-02 14:14:00 36.56 Christie [facility] Respiratory rate 2020-10-02 14:14:00 18 /min [facility] Body height 2020-10-02 14:14:00 157.5 cm [facility] Body weight 2020-10-02 14:14:00 98.975 kg [facility] BMI 2020-10-02 14:14:00 39.91 kg/m2 [facility] Systolic blood 2020-09-24 22:47:00 131 mm[Hg] Univer [facility]ity of [facility] Diastolic blood 2020-09-24 22:47:00 69 mm[Hg] Unive rsity of pressure [facility] Heart rate 2020-09-24 22:47:00 84 /min [facility] Body temperature 2020-09-24 22:47:00 36.5 Christie [facility] Respiratory rate 2020-09-24 22:47:00 18 /min Univ [facility] Body height 2020-09-24 22:47:00 157.5 cm [facility] Body weight 2020-09-24 22:47:00 97.523 kg [facility] BMI 2020-09-24 22:47:00 39.32 kg/m2 [facility] Systolic blood 2020-08-13 16:34:00 123 mm[Hg] Univer sity of pressure [facility] Diastolic blood 2020-08-13 16:34:00 67 mm[Hg] Unive rsity of pressure [facility] Heart rate 2020-08-13 16:34:00 76 /min [facility] Body temperature 2020-08-13 16:34:00 36.44 Christie [facility] Respiratory rate 2020-08-13 16:34:00 16 /min Univ [facility] Body height 2020-08-13 16:34:00 157.5 cm [facility] Body weight 2020-08-13 16:34:00 92.987 kg [facility] BMI 2020-08-13 16:34:00 37.49 kg/m2 [facility] Systolic blood 2020-07-16 14:50:00 115 mm[Hg] Univer sity of pressure [facility] Diastolic blood 2020-07-16 14:50:00 67 mm[Hg] Unive rsity of pressure [facility] Heart rate 2020-07-16 14:50:00 76 /min [facility] Body temperature 2020-07-16 14:50:00 36.5 Christie [facility] Respiratory rate 2020-07-16 14:50:00 18 /min Univ [facility] Body height 2020-07-16 14:50:00 157.5 cm [facility] Body weight 2020-07-16 14:50:00 90.538 kg [facility] BMI 2020-07-16 14:50:00 36.51 kg/m2 [facility] Systolic blood 2020-06-11 14:51:00 105 mm[Hg] Univer sity of [facility] Diastolic blood 2020-06-11 14:51:00 65 mm[Hg] Unive rsity of pressure [facility] Heart rate 2020-06-11 14:51:00 70 /min [facility] Body temperature 2020-06-11 14:51:00 36.56 Christie [facility] Respiratory rate 2020-06-11 14:51:00 18 /min [facility] Body height 2020-06-11 14:51:00 157.5 cm [facility] Body weight 2020-06-11 14:51:00 86.365 kg [facility] BMI 2020-06-11 14:51:00 34.82 kg/m2 [facility] Systolic blood 2020-05-10 21:31:00 124 mm[Hg] Univer sity of pressure [facility] Diastolic blood 2020-05-10 21:31:00 73 mm[Hg] Unive rsity of pressure [facility] Heart rate 2020-05-10 21:31:00 74 /min [facility] Body temperature 2020-05-10 21:31:00 36.56 Christie [facility] Respiratory rate 2020-05-10 21:31:00 18 /min Univ [facility] Body height 2020-05-10 21:31:00 157.5 cm [facility] Body weight 2020-05-10 21:31:00 84.369 kg [facility] BMI 2020-05-10 21:31:00 34.02 kg/m2 [facility] Systolic blood 2020-03-21 20:08:00 113 mm[Hg] Univer sity of pressure [facility] Diastolic blood 2020-03-21 20:08:00 76 mm[Hg] Unive rsity of pressure [facility] Heart rate 2020-03-21 20:08:00 80 /min [facility] Body temperature 2020-03-21 20:08:00 36.83 Christie [facility] Respiratory rate 2020-03-21 20:08:00 18 /min [facility] Body height 2020-03-21 20:08:00 156.2 cm [facility] Body weight 2020-03-21 20:08:00 82.01 kg [facility] BMI 2020-03-21 20:08:00 33.61 kg/m2 [facility] Procedures Procedure Date / Time Performing Clinician Source Performed CONSENT FOR 2020-11-12 05:01:00 Doctor Unassigned, Jazmine [facility] CBC WITH DIFF 2020-10-23 09:40:00 Sahil Rios [facility] VENOUS CORD GAS 2020-10-22 22:22:00 Sahil Rios [facility] CBC WITH DIFF 2020-10-22 10:04:00 [facility] ADC OR AMPARO ONLY - 2020-10-22 09:55:00 Sahil Rios [facility] HEPATITIS B SURFACE 2020-10-22 09:45:00 Sahil Rios [facility] ANTIGEN [facility] HB ABO GROUPING 2020-10-22 09:45:00 Sahil Rios [facility] RHO (D) IMMUNE GLOBULIN 2020-10-22 09:45:00 Sahil Rios [facility] HIV 1/2 AG-AB WITH 2020-10-22 09:45:00 Sahil Rios [facility] REFLEX [facility] NON-STRESS TEST 2020-10-15 18:13:34 Sahil Rios [facility] NOTICE OF PRIVACY 2020-10-15 17:28:06 Doctor Unassigned, Jazmine [facility] ASSIGNMENT OF BENEFITS 2020-10-15 17:27:42 Doctor Jaya, [facility] NON-STRESS TEST 2020-10-11 17:20:43 Sahil Rios [facility] NON-STRESS TEST 2020-10-08 20:30:34 Sahil Rios [facility] DSU PRE-OP 2020-10-08 06:01:00 Doctor Unassigned, No [facility] POCT URINALYSIS W/O 2020-10-08 00:00:00 RiosKlaudiaen Carlos Universi ty [facility] NON-STRESS TEST 2020-10-04 18:35:14 Sandra Ascencio [facility] BIOPHYSICAL PROFILE 2020-10-02 15:14:07 [facility] POCT URINALYSIS W/O 2020-08-13 16:36:00 Gabriel Sahil Gonzalez [facility] TDAP VACCINE, >11 YRS, 2020-08-13 16:29:48 Sahil Rios [facility] POCT URINALYSIS W/O 2020-07-16 00:00:00 Sahil Rios [facility] POCT URINALYSIS W/O 2020-06-11 00:00:00 [facility] POCT URINALYSIS W/O 2020-05-10 00:00:00 Sahil Rios [facility] SCANNED LAB RESULTS 2020-04-04 05:01:00 [facility] 2020-03-21 23:10:23 Sahil Rios [facility] ADC / [facility] - DRUG SCREEN 2020-03-21 21:19:00 Sahil Rios [facility] POCT TEST 2020-03-21 00:00:00 Sahil Rios [facility] POCT URINALYSIS W/O 2020-03-21 00:00:00 Sahil Rios [facility] Encounters Start End Encounter Admission Attending Care Care Encounter Source Date/Time Date/Time Type Type Clinicians Facility Department ID 2021-06-02 Outpatient P IAMB SANDRA [id number] [facility] 2021-09-03 2021-09-03 Cris Ascen[place]i [place] [id number] Univers 00:00:00 00:00:00 Sandra BOYER [id number] [id number] [phone] Nm dic[address] 2021-05-06 2021-05-06 Outpatient R SILVA [facility] [id number] Univers 13:00:00 13:00:00 SANDRA allen [facility] 2021-05-06 2021-05-06 Refill TOM Varghese 1.2.840.114 [id number] Univers 00:00:00 00:00:00 Bryce GOODWIN [id number] ity of [facility] [id number] Kevin as [phone] [address] 2021-02-08 2021-02-[address] [facility] [id number] Univers 00:00:00 00:00:00 Sandra Boyer [id number] i [id number] [phone] [address] 2020-12-12 2020-12-12 Office Silva IADEANA 1.2.323.796 [id number] Univers 14:23:01 14:56:25 Visit Sandra Boyer [id number] i ty [id number] [phone] Nm dic[address] 2020-12-12 2020-12-12 Outpatient Jason ASCENCIO [facility] [id number] Univers 14:00:00 14:00:00 SANDRA allen [facility] 2020-12-04 2020-12-[address] [facility] [id number] Univers 00:00:00 00:00:00 Sandra Boyer [id number] i [id number] [phone] Nm dic[address] 2020-11-12 2020-11-[address] [facility] [id number] Univers 10:31:40 11:59:09 Sandra Boyer [id number] ity of [id number] [phone] Nm dical nal [address] [facility] 2020-11-12 2020-11-12 Outpatient R SILVA [facility] [id number] Univers 10:30:00 10:30:00 SANDRA kathryn [facility] 2020-11-12 2020-11-12 Outpatient R SILVA [facility] [id number] Univers 10:30:00 10:30:00 SANDRA kathryn [facility] 2020-11-12 2020-11-12 Orders Doctor TOM 1.2.840.114 [id number] Univers 00:00:00 00:00:00 Only Unassigned, BUDDY [id number] ity of [place] [facility] [id number] Kevin as [phone] [facility] [address] [place] 2020-10-26 2020-10-[address] [facility] 1.2.840.114 [id number] Univers 00:00:00 00:00:00 Carlos Boyer [id number] i [id number] [phone] Nm dical [facility] [address] [facility] 2020-10-22 2020-10-[address] [facility] 1.2.840.114 [id number] Univers 04:13:00 21:10:00 Encounter Carlos Boyer [id number] it[id number] [phone] [facility] 083 Branch 2020-10-19 2020-10-19 Laboratory Only, Adc Test [facility] 1.2.840. 114 [id number] Univers 11:32:09 11:47:09 Only Sagar Shea [id number] ity [id number] [phone] [address] 2020-10-19 2020-10-19 Outpatient R [facility] [id number] Univers 11:15:00 11:15:00 ity [facility] 2020-10-15 2020-10-15 Routine Room, [facility] 1.2.840.1 14 [id number] Univers 11:06:37 12:14:00 Rios Sahil Carlos Boyer [id number] ity of [id number] [phone] Nm dical nal [address] [place] [address] 2020-10-15 2020-10-15 Outpatient R [facility] [id number] Univers 11:00:00 11:00:00 ity [facility] 2020-10-12 2020-10-12 Mold Mover Ultrasound, [facility] 1.2 .840.114 [id number] Univers 15:26:21 15:56:21 Visit Avelina Gaytan 350.1 .13.10 ity [facility] [id number] [phone] Nm dical nal [address] [place] [address] 2020-10-12 2020-10-12 Outpatient P [facility] [id number] Univers 15:30:00 15:30:00 ity [facility] 2020-10-11 2020-10-11 Routine Room, [facility] 1.2.840.1 14 [id number] Univers 09:56:17 11:00:21 Sahil Rios Carlos Boyer [id number] ity of [id number] [phone] Nm dical nal [address] [place] [address] 2020-10-11 2020-10-11 Outpatient R [facility] [id number] Univers 10:00:00 10:00:00 ity [facility] 2020-10-08 2020-10-08 Routine Room, [facility] 1.2.840.1 14 [id number] Univers 13:03:49 14:27:41 RiosSahil Cam Grady [id number] ity of [id number] [phone] Nm dical nal [address] [place] [address] 2020-10-08 2020-10-08 Outpatient R SAHIL RIOS [facility] [id number] Univers 13:45:00 13:45:[address] [facility] 2020-10-08 2020-10-08 Outpatient R [facility] [id number] Univers 13:00:00 13:00:[address] [facility] 2020-10-08 2020-10-08 Orders Doctor TOM 1.2.840.114 [id number] Univers 00:00:00 00:00:00 Only Unassigned, BUDDY 350.1.13.10 ity of [place] [facility] [id number] Kevin as [phone] [address] 2020-10-04 2020-10-04 Routine Room, [facility] 1.2.840.1 14 [id number] Univers 11:00:47 11:15:47 Sahil Rios [id number] ity of [id number] [phone] Nm dical nal [address] [place] [address] 2020-10-04 2020-10-04 Outpatient R [facility] [id number] Univers 11:00:00 11:00:[address] [facility] 2020-10-02 2020-10-02 Routine Room, [facility] 1.2.840.1 14 [id number] Univers 08:01:11 09:20:39 Sahil Rios [id number] ity of [id number] [phone] Nm dical nal [address] [place] [address] 2020-10-02 2020-10-02 Outpatient R [facility] [id number] Univers 08:00:00 08:00:[address] [facility] 2020-09-28 2020-09-[address] [facility] 1.2.840.114 [id number] Univers 00:00:00 00:00:00 Cam Jose 350.1.13.10 i ty [id number] [phone] Nm dic[address] 2020-09-24 2020-09-[address] [facility] 1.2.957.127 [id number] Univers 15:59:38 16:14:38 Sandra Boyer [id number] ity of [id number] [phone] [address] 2020-09-24 2020-09-24 Outpatient R SILVA [facility] [id number] Univers 16:00:00 16:00:00 SANDRA [facility] 2020-09-21 2020-09-21 Mold Mover Ultrasound, [facility] 1.2 .840.114 [id number] Univers 15:35:00 16:01:21 Visit Sahil Rios [id number] ity [id number] [phone] [address] 2020-09-21 2020-09-21 Outpatient P [facility] [id number] Univers 15:30:00 15:30:00 ity [facility] 2020-09-10 2020-09-10 Outpatient R SAHIL RIOS [facility] [id number] Univers 13:00:00 13:00:00 ity [facility] 2020-08-27 2020-08-27 Outpatient R SAHIL RIOS [facility] [id number] Univers 11:15:00 [facility]:15[facility] 2020-08-27 2020-08-[address] [facility] 1.2.840.114 [id number] Univers 00:00:00 00:00:00 Carlos Boyer 350.1.13.10 i ty [id number] [phone] Nm dical nal [address] [place] [address] 2020-08-27 2020-08-[address] [facility] 1.2.877.147 [id number] Univers 00:00:00 00:00:00 Carlos Boyer 350.1.13.10 i [id number] [phone] Nm dical nal [address] 2020-08-24 2020-08-24 Laboratory Lab, [facility] Fam Pob I [facility] 1.2. 840.114 [id number] Univers 16:02:04 18:09:52 Only Jania Reeves [facility] [id number] ity of [place] 4.2.7.2.686 [place] [phone] Nm dical nal [address] 2020-08-24 2020-08-24 Laboratory Lab, [facility] Pob I [facility] 1.2. 840.114 [id number] Univers 16:06:29 16:26:29 Only Jania Reeves [facility] [id number] ity of [place] [id number] [place] [phone] [facility] [address] 2020-08-24 2020-08-24 Outpatient R SUZIE [facility] [id number] Univers 10:00:00 10:00:00 JANIA ity [facility] 2020-08-15 2020-08-15 Mold [facility] 1.2 .840.114 [id number] Univers 08:32:51 09:02:51 Visit Natacha Alaniz [employer]AINER TENDER [id number] ity [facility] [id number] Kevin as MATERNAL [phone] Med ical & CHILD [address] [place] [address] 2020-08-15 2020-08-15 Outpatient P [facility] [id number] Univers 08:30:00 08:30:[address] [facility] 2020-08-13 2020-08-[address] [facility] 1.2.840.11 [id number] Univers 10:12:44 10:55:41 Sahil Rios 350.1.13.10 ity of [id number] [phone] Nm dical nal [address] [facility] 2020-08-13 2020-08-13 Outpatient R SAHIL RIOS [facility] [id number] Univers 10:30:00 10:30:[address] [facility] 2020-08-13 2020-08-13 Mold Mover 2, Adc Lab [facility] 1.2.840.114 [id number] Univers 08:49:59 09:04:59 Visit Sahil Rios 350.1.13.10 it[id number] [phone] Nm dicnd nal [address] [facility] 2020-07-16 2020-07-16 [facility] 1.2.601.572 [id number] Univers 08:36:14 09:24:24 Carlos Patelton 350.1.13.10 ity of [id number] [phone] Nm dical nal [address] [facility] 2020-07-16 2020-07-16 Outpatient R SAHIL RIOS [facility] [id number] Univers 08:30:00 08:30:[address] [facility] 2020-06-14 2020-06-14 Mold Mover Ultrasound, [facility] 1.2 .840.114 [id number] Univers 09:51:44 11:06:44 Visit Jayson Cote [employer] TENDER [id number] ity of [place] [id number] Kevin as MATERNAL [phone] Med ical & CHILD [address] [place] [address] 2020-06-14 2020-06-14 Outpatient P [facility] [id number] Univers 10:00:00 10:00:[address] [facility] 2020-06-11 2020-06-11 [facility] [id number] Univers 08:29:46 09:27:30 Carlos Grady 350.1.13.10 ity of [id number] [phone] Nm dical [facility] [address] [facility] 2020-06-11 2020-06-11 Outpatient R SAHIL RIOS [facility] [id number] Univers 08:30:00 08:30:00 ity [facility] 2020-05-30 2020-05-30 Mold Mover 2, Adc Lab [facility] 1.2.840.114 [id number] Univers 10:36:53 10:51:53 Visit Sahil Rios Carlos Grady 350.1.13.10 ity [id number] [phone] [facility] [address] [facility] 2020-05-30 2020-05-30 Outpatient R GABRIEL SAHIL [facility] [id number] Univers 10:30:00 10:30:[address] [facility] 2020-05-28 2020-05-28 Outpatient R [facility] [id number] Univers 09:30:00 09:30:00 ity [facility] 2020-05-10 2020-05-10 Routine [facility] [id number] Univers 16:10:28 17:03:34 Cam Grady 350.1.13.10 ity of [id number] [phone] [address] 2020-05-10 2020-05-10 Outpatient R GABRIEL [facility] [id number] Univers 16:00:00 16:00:00 ity [facility] 2020-04-20 2020-04-20 Telephone [facility] 1.2.840.114 [id number] Univers 00:00:00 00:00:00 Cam Grady 350.1.13.10 i ty [id number] [phone] [address] 2020-04-18 2020-04-18 Outpatient R GABRIEL [facility] [id number] Univers 15:45:00 15:45:00 ity [facility] 2020 2020 Telephone [facility] 1.2.840.114 [id number] Univers 00:00:00 00:00:00 Cam Grady [id number] i ty [id number] [phone] Nm dical nal [address] [facility] 2020-04-13 2020-04-[address] [facility] 1.2.840.114 [id number] Univers 00:00:00 00:00:00 Cam Grady 350.1.13.10 [place] [phone] Nm dical nal 134 [facility] 2020-04-04 2020-04-04 Mold Mover 2, Adc Lab [facility] 1.2.840.114 [id number] Univers 13:08:50 13:23:50 Visit Klaudia Riosnilsa Gonzalez Grady 350.1.13.10 [place] [phone] [facility] 353 [facility] 2020-04-04 2020-04-04 Outpatient R [facility] [id number] Univers 13:00:00 13:00:[address] [facility] 2020-04-04 2020-04-04 Orders Doctor TOM 1.2.840.114 [id number] Univers 00:00:00 00:00:00 Only Unassigned, BUDDY 350.1.13.10 ity of [facility] 4.2.7.2.686 Kevin as [phone] [address] 2020-03-23 2020-03-[address] [facility] 1.2.840.114 [id number] Univers 00:00:00 00:00:00 Cam Grady 350.1.13.10 [place] [phone] Nm dical nal 134 [facility] 2020-03-21 2020-03-[address] [facility] 1.2.791.465 [id number] Univers 14:48:47 16:05:19 Carlos Grady 350.1.13.10 ity of Visit [place] [phone] Nm dical [address] 2020-03-21 2020-03-21 Outpatient R SAHIL RIOS [facility] [id number] Univers 14:30:00 14:30:00 [facility] Results Test Description Test Time Test Comments Results Result Comments Source CBC with Differential 2020-10-23 10:32:13 Test Item Value Reference Range Interpretation Comme nts WBC (test code = 6690-2) See_Comment H [A utomated message] The system which ge nerated this result transmit katie reference range: 4.30 - 1 1.10 10*3/?L. The reference r yajaira was not used to interpr et this result as normal/abnor mal. RBC (test code = 789-8) See_Comment L [Au tomated message] The system which ge nerated this result transmit katie reference range: 3.93 - 5 .25 10*6/?L. The reference r yajaira was not used to interpr et this result as normal/abnor mal. HGB (test code = 718-7) 12.2 g/dL 11.6-15.0 HCT (test code = 4544-3) 36.2 % 35.7-45.2 MCV (test code = 787-2) 94.0 fL 80.6-95.5 MCH (test code = 785-6) 31.7 pg 25.9-32.8 MCHC (test code = 786-4) 33.7 g/dL 31.6-35.1 RDW-SD (test code = 94163-2) 49.9 fL 39.0-49.9 RDW-CV (test code = 788-0) 14.6 % 12.0-15.5 PLT (test code = 777-3) See_Comment L [Au tomated message] The system which ge nerated this result transmit katie reference range: 166 - 35 8 10*3/?L. The reference range was not used to interpret th is result as normal/abnormal . MPV (test code = 27171-8) 12.0 fL 9.5-12.9 NRBC/100 WBC (test code = See_Comment [ Automated message] The 1637090715) system which ge nerated this result transmit katie reference range: 0.0 - 10 .0 /100 WBCs. The reference r yajaira was not used to interpr et this result as normal/abnor mal. NRBC x10^3 (test code = <0.01 See_Comment [Au tomated message] The 6820203088) system which [employer] nerated this result transmit katie reference range: 10*3/?L. The reference range was not u sed to interpret this result as normal/abnormal . GRAN MAT (NEUT) % (test code 79.3 % = 770-8) IMM GRAN % (test code = 0.70 % 1782485019) LYMPH % (test code = 736-9) 12.8 % MONO % (test code = 5905-5) 6.2 % EOS % (test code = 713-8) 0.7 % BASO % (test code = 706-2) 0.3 % GRAN MAT x10^3(ANC) (test 13.78 10*3/uL 1.88-7.09 H code = 1821442345) IMM GRAN x10^3 (test code = 0.12 10*3/uL 0.00-0.06 H 6012302696) LYMPH x10^3 (test code = 2.22 10*3/uL 1.32-3.29 731-0) MONO x10^3 (test code = 1.08 10*3/uL 0.33-0.92 H 742-7) EOS x10^3 (test code = 0.13 10*3/uL 0.03-0.39 711-2) BASO x10^3 (test code = 0.06 10*3/uL 0.01-0.07 704-7) Lab Interpretation (test Abnormal code = 67322-7) [facility] - [id number] 09:59:04 Test Item Value Reference Range Interpretation Comments RPR (Qualitative) (test code = Nonreactive Nonreactive 84632-5) Lab Interpretation (test code = Normal 64452-4) [facility] (D) IMMUNE [id number] 01:42:05 Test Item Value Reference Range Interpretation Comments RHIG CANDIDATE? No- see comment Patient i s not a (test code = candidate for R hIg- 5055) Patient is Rh Positive.Perfor med at [facility] Laboratory Services - [facility] Blood [address] [place] [phone] Free: [phone] A No. [id number] [facility] BranchArterial Cord [id number] 22:40:05 Test Item Value Reference Range Interpretation Comments BASE EXCESS, CORD mEq/L (test code = 8313329952) AC PH, CORD (BEAKER) 7.18-7.38 (test code = 9288815786) PC02, CORD (test code See_Comment [Auto mated message] The = 7855536165) system which g enerated this result transmit katie reference range : 32 - 66 mmHg. The refer ence range was not used to interpret this result as normal/abnormal . PO2, CORD (test code See_Comment [Autom ated message] The = 0242913919) system which g enerated this result transmit katie reference range : 10 - 30 mmHg. The refer ence range was not used to interpret this result as normal/abnormal . BICARBONATE, CORD See_Comment [Automate d message] The (test code = system which ge nerated this 3096200080) result transmit katie reference range : 17 - 27 mEq/L. The refe rence range was not used to interpret this result as normal/abnormal . [facility] BranchVenous Cord [id number] 22:36:57 Test Item Value Reference Range Interpretation Comments VENOUS BASE EXCESS, mEq/L CORD (test code = 4838986136) VENOUS PH, CORD (test 7.25-7.45 code = 3607539862) VENOUS PC02, CORD See_Comment [Automate d message] The (test code = system which ge nerated 5864754361) this result tra nsmitted reference range : 27 - 49 mmHg. The refer ence range was not used to interpret this result as normal/abnormal . VENOUS PO2, CORD (test See_Comment [Aut omated message] The code = 6153002875) system wh [facility] generated this result tra nsmitted reference range : 17 - 41 mmHg. The refer ence range was not used to interpret this result as normal/abnormal . VENOUS BICARBONATE, See_Comment [Automa katie message] The CORD (test code = system whi ch generated 0166947599) this result tra nsmitted reference range : 12 - 29 mEq/L. The refe rence range was not used to interpret this result as normal/abnormal . [facility]wood[facility]atitis B Surface [id number] 17:01:36 Test Item Value Reference Range Interpretation Comments HBsAg Semi-Quantitative (test code = Negative Negative 5195-3) [facility]woodHIV [facility]/2 AG-AB WITH [id number] 11:36:11 Test Item Value Reference Range Interpretation Comments HIV Negative Negative Semi-quantitative (test code = 95242-0) LADARIUS (test code = Non-reactive for HIV-1 LADARIUS) antigen and HIV-1/HIV-2 antibodies. ?No laboratory evidence of HIV infection. ?Repeat in 2-4 weeks if acute HIV infection is suspected. [facility]woodCB with [id number] 11:07:29 Test Item Value Reference Range Interpretation Comments WBC (test code = See_Comment H [Automated 1298-2) message] The system which generated this result transmit katie reference range : 4.30 - 11.10 10*3/?L. The reference range was not used to interpret this result as normal/abnormal . RBC (test code = See_Comment [Automated 069-8) message] The system which generated this result transmit katie reference range : 3.93 - 5.25 10*6/?L. The reference range was not used to interpret this result as normal/abnormal . HGB (test code = 13.9 g/dL 11.6-15.0 718-7) HCT (test code = 40.2 % 35.7-45.2 4544-3) MCV (test code = 93.7 fL 80.6-95.5 787-2) MCH (test code = 32.4 pg 25.9-32.8 785-6) MCHC (test code = 34.6 g/dL 31.6-35.1 786-4) RDW-SD (test code = 48.1 fL 39.0-49.9 49060-7) RDW-CV (test code = 14.3 % 12.0-15.5 788-0) PLT (test code = See_Comment L [Automated 347-3) message] The system which generated this result transmit katie reference range : 166 - 358 10*3/ ?L. The reference range was not u sed to interpret th is result as normal/abnormal . MPV (test code = 12.1 fL 9.5-12.9 74808-9) NRBC/100 WBC (test See_Comment [Automat ed code = 3327981897) message] The system which generated this result transmit katie reference range : 0.0 - 10.0 /100 WBCs. The reference range was not used to interpret this result as normal/abnormal . NRBC x10^3 (test code <0.01 See_Comment [Auto mated = 2607117555) message] The system which generated this result transmit katie reference range : 10*3/?L. The reference range was not used to interpret this result as normal/abnormal . GRAN MAT (NEUT) % 75.0 % (test code = 770-8) IMM GRAN % (test code 0.70 % = 5603721935) LYMPH % (test code = 16.9 % 736-9) MONO % (test code = 5.3 % 5905-5) EOS % (test code = 1.8 % 713-8) BASO % (test code = 0.3 % 706-2) GRAN MAT x10^3(ANC) 11.06 10*3/uL 1.88-7.09 H (test code = 0329653472) IMM GRAN x10^3 (test 0.10 10*3/uL 0.00-0.06 H code = 1143092311) LYMPH x10^3 (test code 2.50 10*3/uL 1.32-3.29 = 731-0) MONO x10^3 (test code 0.78 10*3/uL 0.33-0.92 = 742-7) EOS x10^3 (test code = 0.27 10*3/uL 0.03-0.39 711-2) BASO x10^3 (test code 0.04 10*3/uL 0.01-0.07 = 704-7) Lab Interpretation Abnormal (test code = 85679-4) [facility]woodType and Screen - ONCE [id number] 10:38:47 Test Item Value Reference Range Interpretation Comments ABO & RH (test code O Positive Performe d at [facility] = 20) Laboratory Serv [facility] [address] [place] [phone] Free: [phone] A No. [id number] IAT (test code = Negative Performed a t [facility] 1185) Laboratory Serv [facility] [address] [place] [address]Zhmx Free: [phone] A No. [id number] [facility] NON-STRESS [id number] 18:14:47 Reactive and reassuringToco quiescent Sahil Rios MD ?10/15/2020 ?1:14 PM [facility] NON-STRESS [id number] 17:21:14 Reactive and reassuringToco quiescent Sahil Rios MD ?10/11/2020 ?11:21 AM [facility] NON-STRESS [id number] 20:31:15 Reactive and reassuringToco quiescent Sahil Rios MD ?10/08/2020 ?2:31 PM [facility]woodPO[facility] URINALYSIS W/O SPECIFIC [id number] 19:51:00 Test Item Value Reference Range Interpretation Comments POCT PH U (test code = 3254) N/A 5-8 POCT U LEUK EST (test code = N/A Negative - Negative 3263) POCT U NIT (test code = 3262) N/A Negative - Negative POCT U PROT (test code = 3259) Negative Negative - Negative POCT U GLU (test code = 3256) Negative Negative - Negative POCT U KETONE (test code = 3258) N/A Negative - Negative POCT U BLD (test code = 3257) N/A Negative - Negative [facility] NON-STRESS [id number] 18:35:[address] [facility] HospitalBIOPHYSICAL PROFILE WITH NON-STRESS [id number] 15:14:47Addendum by Sahil Rios MD on 10/02/2020 9:16 AMNonreactive NST with baseline at 140s, moderate variability, no accels and no decels BPP 8/8 in 3 minutes, LANDON 9.82 cm Sahil Rios MD ?10/02/2020 ?9:14 AM BPP 8/8 in 3 minutes, LANDON 9.82 cm Sahil Rios MD ?10/02/2020 ?9:14 [facility] SPECIFIC GRAVITY 2020-08-13 16:36:00 Test Item Value Reference Range Interpretation Comments POCT PH U (test code = 3254) n/a 5-8 POCT U LEUK EST (test code = 3263) n/a Negative - Negative POCT U NIT (test code = 3262) n/a Negative - Negative POCT U PROT (test code = 3259) neg Negative - Negative POCT U GLU (test code = 3256) neg Negative - Negative POCT U KETONE (test code = 3258) n/a Negative - Negative POCT U BLD (test code = 3257) n/a Negative - Negative [facility] URINALYSIS W/O SPECIFIC [id number] 14:51:00 Test Item Value Reference Range Interpretation Comments POCT PH U (test code = 3254) n/a 5-8 POCT U LEUK EST (test code = 3263) n/a Negative - Negative POCT U NIT (test code = 3262) n/a Negative - Negative POCT U PROT (test code = 3259) neg Negative - Negative POCT U GLU (test code = 3256) neg Negative - Negative POCT U KETONE (test code = 3258) n/a Negative - Negative POCT U BLD (test code = 3257) n/a Negative - Negative Lab Interpretation (test code = Normal 15475-1) [facility] URINALYSIS W/O SPECIFIC [id number] 14:56:00 Test Item Value Reference Range Interpretation Comments POCT PH U (test code = 3254) n/a 5-8 POCT U LEUK EST (test code = 3263) n/a Negative - Negative POCT U NIT (test code = 3262) n/a Negative - Negative POCT U PROT (test code = 3259) neg Negative - Negative POCT U GLU (test code = 3256) neg Negative - Negative POCT U KETONE (test code = 3258) n/a Negative - Negative POCT U BLD (test code = 3257) n/a Negative - Negative Lab Interpretation (test code = Normal 09348-6) [facility] URINALYSIS W/O SPECIFIC [id number] 14:56:00 Test Item Value Reference Range Interpretation Comments POCT PH U (test code = 3254) n/a 5-8 POCT U LEUK EST (test code = 3263) n/a Negative - Negative POCT U NIT (test code = 3262) n/a Negative - Negative POCT U PROT (test code = 3259) neg Negative - Negative POCT U GLU (test code = 3256) neg Negative - Negative POCT U KETONE (test code = 3258) n/a Negative - Negative POCT U BLD (test code = 3257) n/a Negative - Negative Lab Interpretation (test code = Normal 28887-6) [facility] URINALYSIS W/O SPECIFIC [id number] 21:34:00 Test Item Value Reference Range Interpretation Comments POCT PH U (test code = 3254) N/A 5-8 POCT U LEUK EST (test code = N/A Negative - Negative 3263) POCT U NIT (test code = 3262) N/A Negative - Negative POCT U PROT (test code = 3259) Negative Negative - Negative POCT U GLU (test code = 3256) Negative Negative - Negative POCT U KETONE (test code = 3258) N/A Negative - Negative POCT U BLD (test code = 3257) N/A Negative - Negative [facility] KingwoodUS OB [id number] 23:11:27Limited USG for FHT: ?Single live IUP measured 9 0/7 weeks, consistent with LMP. ?Will date by LMP unless clinically indicated otherwise Sahil Rios MD ?03/21/2020 ?6:11 PMUnSt[facility] - DRUG S[facility]EN TRIAGE 2020-03-21 22:53:00 Test Item Value Reference Range Interpretation Comments BENZO U (test code = Negative Negative 6136375139) MATEO U (test code = Negative Negative 8532901326) AMPHET (test code = Negative Negative 0644756869) THC (test code = Negative Negative 0503608274) METHADONE (test code = Negative Negative 4805126827) Meth U (test code = Negative Negative 1319308920) OPIATES (test code = Negative Negative 2406441519) Cocaine Metabolite (test Negative Negative code = 3858634200) PROPOXY (test code = Negative Negative 6283867285) Tric U (test code = Negative Negative 0513654187) PCP (test code = Negative Negative 5697978804) OXYCOD (test code = Negative Negative 2276271992) LADARIUS (test code = LADARIUS) Urine Drug Cutoff Ranges Benzodiazepines: ? ? 150 ng/mLBarbiturates: ?200 ng/mLAmphetamine: ? 500 ng/mLCannabinoids: ?50 ?ng/mLMethadone: ? 200 ng/mLMethamphetamine: ? ? 500 ng/mL Opiates: ? 100 ng/mL or 2000 ng/mLCocaine: ? 150 ng/mLPropoxyphene: ?300 ng/mLTricyclics: ?300 ng/mLOxycodone: ? 100 ng/mLPCP: ? 25 ?ng/mL The results are to be used only for medical (i.e., treatment) purposes. Unconfirmed screening results must not be used for non-medical purposes (e.g., employment testing, legal testing). Lab Interpretation (test Normal code = 44655-0) [facility] [id number] 20:25:00 Test Item Value Reference Range Interpretation Comments POCT PREG (test code = 1605) Positive On board controls acceptable with C Yes Line (test code = 3574) POCT PREG LOT # (test code = 3575) POCT PREG TEST DATE (test code = 3576) Lab Interpretation (test code = Abnormal 71571-0) [facility] URINALYSIS W/O SPECIFIC [id number] 20:24:00 Test Item Value Reference Range Interpretation Comments POCT PH U (test code = 3254) 7.5 mg/dl 5-8 POCT U LEUK EST (test code = neg Negative - Negative 3263) POCT U NIT (test code = 3262) neg Negative - Negative POCT U PROT (test code = 3259) neg Negative - Negative POCT U GLU (test code = 3256) neg Negative - Negative POCT U KETONE (test code = neg Negative - Negative 3258) POCT U BLD (test code = 3257) neg Negative - Negative Lab Interpretation (test code = Normal 13463-6) [id number] 16:27:00 RUN DATE: 11/25/18 [facility] - LAB *LIVE* PAGE 1 RUN TIME: 1627 Specimen Inquiry RUN USER: INTERFACE PATIENT: GOLDIE ELDER LOC: TristenTomDSU U #: [id number] AGE/SX: 28/F ROOM: RE11/24/18GIANA DR: Froylan Ferguson III : 92 BED: DIS: STATUS: CAROLYN HAWKINS TLOC: SPEC #: [id number] RECD: 04/ STATUS: TYRA KINGSTON #: [id number] TACO: 11/24/181106 SUBM DR: Froylan Ferguson III, MD ENTERED: 11/24/18 SP TYPE: SURG OTHR DR: Bryce Varghese Jr, MD ORDERED: SURG PATH LVL 10/02 COPIES TO: Bryce Varghese Jr, MD [address] [facility] [address] [facility] [address] [place] [address] [facility] [address] [place] [address] HISTOLOGY: TISSUE ID BLKPCS DEYSI LEV PROCEDURE DISPOSITION ____ ___ ___ ___ NASAL SEPTUM, N A 1 1 NASAL TURBINATE B 1 1 PROCEDURES: SURG PATH LVL 3 (11/24/18) TISSUES: A.NASAL SEPTUM, NOS - SEPTUM CONTENTS B. NASAL TURBINATE, NOS - BILATERAL TURBINATES CLINICAL HISTORY RHINITIS -J30.9; SINUSITIS -J32.9 CPT CODES CPT CODE(S): 79966 , 57985 , , , , , FINAL DIAGNOSIS A. Nasal septum, septoplasty: UNREMARKABLE SEGMENTS OF BONE AND CARTILAGE (GROSS DIAGNOSIS ONLY) B. Bilateral turbinates, excision: MILD CHRONIC INFLAMMATION CONTINUED ON NEXT PAGE RUN DATE: 11/25/18 [facility] - LAB *LIVE* PAGE 2 RUN TIME: 1627 Specimen Inquiry RUN USER: INTERFACE SP #: [facility]:[id number] PATIENT: GOLDIE ELDER #[id number] (Continued) GROSS DESCRIPTION A. Septum contents. Received in formalinare multiple irregular fragments of cartilage and bones, 3.5 x 3.0 x 0.5 cm in aggregate. The specimen is for gross identification only and is photographed. B. Bilateral turbinates. Received in formalin are multiple irregular fragments of barbour-brown soft tissue admixed with dark brown blood clots, 3.0 x 1.5 x 0.5 cm in aggregate. Hand Assembler For Puller Over sections submitted as B. ba/nr Grossing performed at [facility] Pathology, [address] [place] [address], [address], [place] [address]. [employer] Wafers Etcher Stripper: Roverto Jordan M.D. MICROSCOPIC DESCRIPTION A. Septum contents. No sections submitted. Gross diagnosis only. B. Bilateral turbinates. Sections demonstrate respiratory mucosa with underlying glands and mild chronic inflammation. Occasional segments of calcified material are also identified. No dysplasia or malignancy is seen. Signed SIGNATURE ON FILE Marcel Monzon Katelin 11/25/18 1627 END OF REPORT PROTHROMBIN [id number] 16:32:00 Test Item Value Reference Range Interpretation Comments PT PATIENT (test code = PTP) 10.6 SECONDS 9.3-12.9 N INTERNATIONAL NORMAL RATIO 0.92 INR Unit 0.8-1.2 N (test code = INR) THROMBOPLASTIN TIME [id number] 16:32:00 Test Item Value Reference Range Interpretation Comments THROMBOPLASTIN TIME PARTIAL 31.2 SECONDS 26-35 N (test code = PTT) HCG SERUM [id number] 16:26:00 Test Item Value Reference Range Interpretation Comments HCG SERUM QUAL (test SERUM NEGATIVE SCREEN NEGATIVE code = HCGQL) CBC W/AUTO [id number] 16:16:00 Test Item Value Reference Range Interpretation Comments WHITE BLOOD CELL (test code = 10.3 K/mm3 3.5-11.0 N WBC) RED BLOOD CELL (test code = RBC) 4.58 M/mm3 4.70-6.10 L HEMOGLOBIN (test code = HGB) 14.3 G/DL 10.4-14.9 N HEMATOCRIT (test code = HCT) 42.2 % 31.5-44.1 N MEAN CELL VOLUME (test code = 92.1 Fl 84.5-98.6 N MCV) MEAN CELL HGB (test code = MCH) 31.2 pg 27.0-34.2 N MEAN CELL HGB CONCETRATION (test 33.9 G/DL 31.5-34.0 N code = MCHC) RED CELL DISTRIBUTION WIDTH (test 12.3 SD 11.5-14.5 N code = RDW) PLATELET COUNT (test code = PLT) 311.0 K/mm3 150-450 N MEAN PLATELET VOLUME (test code = 9.80 fL 7.0-10.5 N MPV) NEUTROPHIL % (test code = NT%) 66.8 % 40-76 N LYMPHOCYTE % (test code = LY%) 20.9 % 20.5-51.1 N MONOCYTE % (test code = MO%) 4.8 % 1.7-9.3 N EOSINOPHIL % (test code = EO%) 7.2 % 0.0-6.0 H BASOPHIL % (test code = BA%) 0.3 % 0.0-2.0 N NEUTROPHIL # (test code = NT#) 6.90 K/mm3 1.8-7.6 N LYMPHOCYTE # (test code = LY#) 2.2 K/mm3 0.6-3.2 N MONOCYTE # (test code = MO#) 0.5 K/mm3 0.3-1.1 N EOSINOPHIL # (test code = EO#) 0.7 K/mm3 0.0-0.4 H BASOPHIL # (test code = BA#) 0.0 K/mm3 0.0-0.1 N MANUAL DIFF REQUIRED (test code = NO DIFF/SCN CRITERIA MDIFF) Notes Date/Time Note Provider Source 2018-11-25 06:09:00-00:00 [id number] [address] PATIENT NAME: GOLDIE ELDER ADMIT DATE: 11/02 11/19 ACCOUNT NO: [id number] ROOM NO: AGE: 28 REPORT TYPE: OPERATIVE REPORT SEX: F ADMITTING PHYSICIAN: ATTENDING PHYSICIAN: Froylan Ferguson III, MD OPERATION DATE: 11/24/2018 PREOPERATIVE DIAGNOSES: 1. Severe bilateral nasal septal deviation. 2. Bilateral inferior turbinate hypertrophy. 3. Inhalant allergies. POSTOPERATIVE DIAGNOSES: 1. Severe bilateral nasal septal deviation. 2. Bilateral inferior turbinate hypertrophy. 3. Inhalant allergies. PROCEDURES PERFORMED: 1. Septoplasty. 2. Bilateral endoscopic submucosal resection of the inferior turbinates using microdebrider (2.9-mm turbinate blade). PRIMARY SURGEON: Froylan Ferguson MD. INSPECTOR TOOL: ANESTHESIA: General endotracheal anesthesia. ESTIMATED BLOOD LOSS: 150 mL. URINE OUTPUT: Not recorded. INTRAVENOUS FLUID: 2000 mL. DRAINS: None. SPECIMENS: 1. Septum. 2. Bilateral inferior turbinates. COMPLICATIONS: None. FINDINGS: 1. The nasal septum was severely bowed to the ri ght side of the nasal cavity anteriorly. Posteriorly, there was a large left- sided bone spur that impinged on the left middle meatus. The mucosa of the vero al septum was severely thickened and edematous due to inhalant allergie s. PATIENT NAME: GOLDIE ELDER ACCOUNT #: [id number] 2. Bilateral severe inferior turbinate hypertrop hy. The inferior turbinates were swollen against the nasal septum on both si chuck and there was almost a complete nasal obstruction. The mucosa w as very polypoid, pale, and edematous. 3. The middle turbinates were also very bulbous and edematous. There was a large amount of mucoid debris in the middle meat uses bilaterally. INDICATION FOR PROCEDURE: St jeniffer Elder is a 28-year-old female with a long history of chronic nasal con gestion, postnasal drainage, and decreased sense of smell. She has a long history of inhalant allerg ies that she has been treated with nasal steroid sprays, montelukast, and oral antihistamines. She had a CT scan of her sinuses done in late . This showed her septal deviation and associated inf erior turbinate hypertrophy, which did not show any active paranasal sinus disease. Physical exam in my office r evealed bilateral nasal septal deviation and severe inferior turbinate hypertrophy. I recommended th e above procedures since she had failed to respond to medical therapy. PROCEDURE IN DETAIL: Ms. Elder was taken to [facility] operating room and her identification was confirmed using her ID bracel et. She was placed on the operating table in the supine position. General endotracheal anesthesia was initiated by the anesthesia team without complication. Time-out was performed. Both sides of her nasal cavities were de congested using Afrin-soaked pledgets. She had severe nasal congest ion and the inferior turbinates were swollen against the nasal septum. There was a large amount of mu coid debris in her nose as well. I could only get one pledget in the right side of her nose. I was able to place two pledgets, which I conventionally pl aced, in the left side of her nose. Once the nasal mucosa was decongested, I injected both sides of the nasal septum and the anterior heads of the inf erior turbinate with 1% lidocaine with 1:100,000 units of epinephrine. Approximately 10 mL were injected in total. Her nose was then prepped an d draped in the normal sterile fashion. I began the procedure by creating a left-sided hemit ransfixion incision using a #15-blade. I then used a Esperanza elevator to begin raising a mucosal flap over the left hand side of the quadrangular cartilage. I extended the flap posteriorly using a caudal elevator and exposed the perpendicular plate of the ethmoid bone and the vomer bone. The quadrang ular cartilage was displaced to the right hand side of the maxillary crest bone and this was creating the deviation in the bowing of the cartilage to the right h and side of the nasal cavity. I used a #15-blade to design an L-shaped strut of the anterior most as pect of the quadrangular cartilage. The thickness of the strut was approx imately 1 cm and this strut rested in the midline, so did not have to be add ressed with the procedure. Posterior to this strut of the preserved quadran gular cartilage, I used a Mabie elevator to raise mucosal flap over the right hand side of the quadrangular cartilage. This was the portion of the cartilage that was deviating severely to the right hand alexis e of the nasal cavity. This portion of cartilage was resected and set aside for later c rushing and reimplantation. Once this window of cartilage had been removed, I could clearly visualize the perpendicular plate of the ethmoid bone and the posterior aspect of the maxillary crest bone. I skeletonized both of the se structures using a caudal elevator. I then used a Leonel-Da Silva punch a nd a Ruthy forceps to PATIENT NAME: GOLDIE ELDER ACCOUNT #: [id number] takedown the perpendicular p late of the ethmoid bone and some residual superior quadrangular cartilage. These structures were deviating to the right hand side of the nasal cavity as well. The posterior aspect of the vomer bone had a large associated bone spur probably projecting to the left hand side of the nasal ca vity. This was creating obstruction of the left middle meatus. This was resected using a Benson-Da Silva punch and a Ruthy forcep as well. The posterior aspect of the maxillary crest bone deviated to the left along the floor of the nose. This was skeletonized with a caudal elevator and then resected using a 4-mm osteotome. There was some bloody oozing from the free edge of the maxillary crest bone that had been t rimmed, and I cauterized this area using suction cautery. Following all of the above maneuvers, the septal flaps rested in the midline. I then turned my attention t o the inferior turbinates. Both inferior turbinates was severely hypertrophied. The mucosa of the in ferior turbinates was pale, polypoid, and very edematous. I used a 0-degree endoscope during this portion of the procedure. I used a caudal elevat or to raise the mucosal flap along the length of the inferior turbi nates on both sides. I then used a 2.9-mm turbinate blade to perform a submucosal resection of the u nderlying bone and submucosal tissues of the inferior turb inates. The reduction of the turbinates took longer than average due to the large polypoid size. Exc ellent reduction was achieved in both inferior turbinates. I then outf ractured the inferior turbinates using a Augustin elevator. I then used suction cauteriz ation to obtain hemostasis at the puncture sites created by the microdebrider and the anterior heads of the inferior turbinates. I also used direct cauterization with the suction cautery to reduce some of the redundant polypoid mucosa over the body and posterior tails of the inferior turbinate bilaterally. Fol lowing these maneuvers, both nasal passages were widely patent. I inspected the nasal cavity using 0-degree endo scope. Middle turbinates were bulbous on both sides. The l eft side was more bulbous than the right due to the preexisting right-sided bowing of the nasal sept um. I medialized both middle turbinate to help open the middle meatus es bilaterally and the middle meatuses were filled with mucoid debr is, which was evacuated using a Madrid-tip suction. I then turned my attention back to the nasal sep candace. I crushed the pieces of quadrangular cartilage that I had removed earlie r and repositioned them back between the septal flaps immediately behind the preserved strut of anterior quadrangular cartilage. I then placed Do yle splints on both sides of the nasal cavity. I closed the left-sided hemitran sfixion incision using a 4-0 plain gut placed in an interrupted fashion. I then secured the Garcia splints anteriorly using a 2-0 nylon stitch placed in a hor izontal mattressed fashion through the anterior nasal septum. Her nose was then cleaned. She was awakened from general anesthesia without complication. She was transported to the PACU in stable condition. Dictated By: Froylan Ferguson MD WT: OP:LJONATHAN/ANKUR. PATIENT NAME: GOLDIE ELDER ACCOUNT #: [id number] Conf#: [id number]#: [id number] Authenticated by Froylan Ferguson MD On 12/20 09:26:27 AM at 0926 PATIENT NAME: GOLDIE ELDER ACCOUNT #: [id number] 10:00:00-00:00 [facility] ([facility]) Post Anesthesia Evaluation REPORT#:[id number] REPORT STATUS: Signed DATE:11/24/18 TIME:1000 PATIENT: GOLDIE ELDER UNIT #: [id number] ROOM/BED: : 92 AGE: 28 SEX: F ATTEND: Froylan Keita II, MD ADM AUTHOR: Desiree Vieyra CRNA * ALL edits or amendments must be made on the [employer]/computer document * Post Anesthesia Evaluation Anes. changes from pre-op eval ORM Surgeries: Surgery Date and Time: 11/24/2018 0700 Primary Procedure: SEPTOPLASTY,BILATERAL SUBMU COUS Anesthetic: GETA Date: 11/24/18 Level of consciousness: no change, patient awake , able to answer questions, participate in this eval. Vital signs: Vital Signs: Date Time Temp Pulse Resp B/P B/P Pulse O2 O2 F low FiO2 Mean Ox Delivery Rate 11/25 0754 36.7 77 17 127/69 98 Room air 11/24 0846 36.7 68 18 121/70 98 Room air 11/24 0839 36.7 92 18 119/65 100 Simple 5.90339 0 mask 11/24 0830 84 17 117/61 100 Simple 5.118166 mask 11/24 0825 63 16 105/59 100 Simple 7.752733 mask 11/24 0820 36.2 61 18 108/55 100 Simple 7.92892 0 mask 11/24 0600 36.8 83 15 125/85 99 Room air Cardiovascular: no change, CV system stable, vit al signs stable Respiratory/Airway: respiratory system stable, m aintains without support Pain: adequately controlled Hydration: adequate Temp status: normothermic Presence of N/V: no Anesthesia complications: no Other changes requiring f/u: none Conclusions: no apparent anes. issues Electronically Signed by Desiree Vieyra CRNA 11/24/18 at 1000 RPT #: [id number] END OF REPORT 2018-11-24 06:39:00-00:00 [facility] ([facility]) Brief Discharge Note w/Med Rec REPORT#:[id number] REPORT STATUS: Signed DATE:11/24/18 TIME:638 PATIENT: GOLDIE ELDER UNIT #: [id number] ROOM/BED: : 92 AGE: 28 SEX: F ATTEND: Froylan Keita II, MD ADM AUTHOR: Froylan Ferguson III, MD * ALL edits or amendments must be made on the el [employer]/computer document * Med Rec Med Rec Discharge meds: Continue taking these medications: DULoxetine DR (CYMBALTA) 30 MG CAP.DR 30 MILLIGRAM ORAL TWICE DAILY. clonazePAM (KlonoPIN) 0.5 MG TAB 0.5 MILLIGRAM ORAL TWICE DAILY. as needed for A NXIETY ZOLPIDEM (AMBIEN) 10 MG TAB 10 MILLIGRAM ORAL AT BEDTIME NEEDED. as need ed for INSOMNIA MONTELUKAST (SINGULAIR) 10 MG TAB 10 MILLIGRAM ORAL DAILY. Start taking the following new medications: SODIUM CHLORIDE (OCEAN 0.65%) 45 ML SPRAY 2 SPRAY NASAL DIRECTED. Days = 30 No Refills HYDROcodone/APAP (NORCO 5/325) 1 TAB TAB 1 TABLET ORAL EVERY 6 HOURS NEEDED. as neede d for PAIN Days = 7 No Refills SULFAMETHOXAZOLE/TMP (BACTRIM DS 800/160 MG) 1 T AB TAB 1 TABLET ORAL TWICE DAILY. Days = 10 No Refills Objective VS/I O Last Documented: Result Date Time Pulse Ox 99 11/24 0600 B/P 125/85 11/24 599 O2 Delivery Room air 11/24 599 Temp 36.8 11/24 599 Pulse 83 11/24 0600 Resp 15 11/24 599 24 hour I O ending at 0700: 11/24 0700 11/23 1900 Intake Total Output Total Balance Patient 81.818 kg Weight Weight Stated/Reported Measurement Method General appearance: alert, awake, oriented Head/Eyes: atraumatic, normocephalic ENT: nasal splints in place; mild bloody nasal d rainage Cardiovascular: regular rate rhythm Respiratory: clear to auscultation Brief Discharge Note w/Med Rec PCP: PCP: Bryce Varghese Jr, MD Problem List/A P: 1. Deviated nasal septum 2. Hypertrophy of both inferior nasal turbinate s Discharge to: home Discharge diagnosis: as above Hospital course: She underwent a septoplasty and turbinate reduction. She tolerated the procedure well. Her pain was controlled and she tolerated an oral diet. OK to discharge home. Activity: light duty, non-strenuous (for one wejoseline mchuhg) Diet: regular Wound/dressing care: Nasal saline spray 2 sprays in each nostril QID and prn nasal congestion; keep head elevated - sleep on 3 to 4 pillows Pt. condition on discharge: stable Prescriptions: with patient Follow-up appointment(s): Dr. Ferguson in 2 days for nasal splint removal; call office with problems. at 0822 RPT #: [id number] END OF REPORT
[2022-12-30] MEDS ORDERED: MIDAZOLAM HCL 2 MG/2 ML INJ ONE (18:58)
[2022-12-30 19:15] LABS: Absolute Lymphocytes (CBC) 2.6 K/uL (0.7-4.9); Hematocrit 44.1 % (36.0-45.0); Lymphocytes % 27.3 % (15.3-44.8); MCV 90.2 fL (80-100); MPV 8.2 fL (7.6-11.3); RBC Red Blood Cell Count 4.89 M/uL (3.86-4.86)
[2022-12-30 19:20] LABS: Protime INR 1.05
[2022-12-30 19:30] LABS: Albumin 3.9 g/dL (3.4-5.0); Bilirubin Total 0.3 mg/dL (0.2-1.0); Potassium 3.5 mEq/L (3.5-5.1)
[2022-12-30 19:46] LABS: Specific Gravity 1.014 (1.005-1.030); Urine Bilirubin NEGATIVE (Negative); Urine Blood Negative (Negative); Urine Clarity Clear (Clear); Urine Color Colorless (Yellow); Urine Glucose NEGATIVE (Negative); Urine Protein NEGATIVE (Negative); Urine Urobilinogen Normal (Normal)
[2022-12-30 20:10] LABS: CSF Glucose 55 mg/dL (40-70)
[2022-12-30 20:23] LABS: Body Fluid Source CSF
[2022-12-30 20:24] LABS: Appearance CLEAR (CLEAR); Color of fluid Colorless (COLORLESS)
[2022-12-30 20:25] LABS: Body Fluid WBC 0 /mm^3
[2022-12-30 20:26] LABS: Body Fluid Source CSF; Color of fluid Colorless (COLORLESS); Fluid Total Volume 10 ml
[2022-12-30 20:27] LABS: Appearance CLEAR (CLEAR)
[2022-12-30 20:29] LABS: Body Fluid WBC 1 /mm^3
--- NOTE | 2022-12-30 20:50 | RAD REPORT ---
EXAM DESCRIPTION: MRI - Brain W/Wo Cont - 12/30/2022 8:31 pm CLINICAL HISTORY: Confusion COMPARISON: head CT 2018 TECHNIQUE: Axial, sagittal, and coronal magnetic images of the brain were obtained. 19 cc MultiHance administered intravenously FINDINGS: Mild to moderate signal within periventricular, deep and subcortical white matter probably ischemic changes secondary to small vessel disease The ventricles are normal in caliber. Diffusion-weighted/ ADC mapping sequences do not demonstrate evidence of an acute infarction. No abnormal enhancement within the brain is seen. An extra-axial fluid collection is not noted. Fluid within the sinuses/mastoids is not seen IMPRESSION: No acute intracranial abnormality displayed
--- NOTE | 2022-12-30 21:42 | ER ---
Nurse's Notes [facility] Name: Paris Coley Age: 32 yrs Sex: Female : 1990 Arrival Date: 12/30/2022 Time: 17:33 Bed 12 Private MD: Diagnosis: Encounter for screening for infectious and parasitic diseases, unspecified Presentation: 12/30 17:46 Chief complaint: Patient states: had a tummy tuck done in [place] a couple months ago , iw the health dept reached out to her and told her she may have been exposed to a fungal infection, they were saying that the infection would be from the epidural. Coronavirus screen: At this time, the client does not indicate any symptoms associated with coronavirus-19. Ebola Screen: Patient negative for fever greater than or equal to 101.5 degrees Fahrenheit, and additional compatible Ebola Virus Disease symptoms Patient denies exposure to infectious person. Patient denies travel to an Ebola-affected area in the 21 days before illness onset. No symptoms or risks identified at this time. Initial Sepsis Screen: Does the patient meet any 2 criteria? No. Patient's initial sepsis screen is negative. Does the patient have a suspected source of infection? No. Patient's initial sepsis screen is negative. Risk Assessment: Do you want to hurt yourself or someone else? Patient reports no desire to harm self or others. Onset of symptoms was December 30, 2022. 17:46 Method Of Arrival: Ambulatory iw 17:46 Acuity: JYOTI 4 iw 18:30 Acuity: JYOTI 3 iw Historical: - Allergies: 17:48 No Known Allergies; iw - Home Meds: 17:48 None [Active]; iw - PMHx: 17:48 None; iw - PSHx: 17:48 tummy tuck; rhinoplasty; breast augmentation; iw - Immunization history:: Adult Immunizations. Screenin:07 [facility] ED Fall Risk Assessment (Adult) History of falling in the last 3 months, jb4 including since admission No falls in past 3 months (0 pts) Confusion or Disorientation No (0 pts) Score/Fall Risk Level 0 - 2 = Low Risk Oriented to surroundings, Maintained a safe environment. Abuse screen: Denies threats or abuse. Nutritional screening: No deficits noted. Tuberculosis screening: No symptoms or risk factors identified. Assessment: 19:00 Reassessment: PT CONSENTED FOR LP. bp 20:39 Reassessment: Patient appears in no apparent distress at this time. Patient and/or jb4 family updated on plan of care and expected duration. Pain level reassessed. Patient is alert, oriented x 3, equal unlabored respirations, skin warm/dry/pink. back from MRI. 21:28 Reassessment: Patient appears in no apparent distress at this time. Patient and/or jb4 family updated on plan of care and expected duration. Pain level reassessed. Patient is alert, oriented x 3, equal unlabored respirations, skin warm/dry/pink. 22:07 Reassessment: Patient appears in no apparent distress at this time. Patient and/or jb4 family updated on plan of care and expected duration. Pain level reassessed. Patient is alert, oriented x 3, equal unlabored respirations, skin warm/dry/pink. Pt verbalized understanding of d/c and follow up instructions. Denies questions or concerns at this time. Vital Signs: 17:46 BP 151 / 94; Pulse 98; Resp 16; Temp 97.7; Pulse Ox 100% on R/A; Weight 83.91 kg; iw Height 5 ft. 2 in. ; 20:39 BP 130 / 85; Pulse 82; Resp 16; Pulse Ox 99% on R/A; jb4 21:28 BP 129 / 81; Pulse 80; Resp 16; Pulse Ox 100% on R/A; jb4 17:46 Body Mass Index 33.84 (83.91 kg, 157.48 cm) iw ED Course: 17:36 Patient arrived in ED. mr 17:39 Chuck Harvey PA is PHCP. cp 17:39 Curly Mart MD is Attending Physician. cp 17:48 Triage completed. iw 17:49 Arm band placed on. iw 17:54 Jean Paul Devi, RN is Primary Nurse. bp 19:06 Inserted saline lock: 20 gauge in right antecubital area, using aseptic technique. bp Blood collected. 19:53 Second set of blood cultures drawn by ma. jw7 19:54 Inserted saline lock: 20 gauge in left antecubital area, using aseptic technique. Blood jw7 collected. 20:16 Brain W/Wo Cont In Process Unspecified. EDMS 21:26 Attending Physician role handed off by Curly Mart MD sp4 21:26 Marcelo Coffman MD is Attending Physician. sp4 22:07 Patient has correct armband on for positive identification. Bed in low position. Call jb4 light in reach. Side rails up X 1. Client placed on continuous cardiac and pulse oximetry monitoring. NIBP monitoring applied. hospital monitor on. 22:07 No provider procedures requiring assistance completed. IV discontinued, intact, jb4 bleeding controlled, No redness/swelling at site. Pressure dressing applied. Administered Medications: 19:00 Drug: Midazolam IVP or IV 2 mg Route: IVP; Site: right antecubital; bp 22:01 Drug: Ibuprofen PO 600 mg Route: PO; pf1 22:02 Drug: Acetaminophen-Codeine PO (300 mg-30 mg) 2 tabs Route: PO; pf1 22:02 Drug: Ondansetron PO 4 mg Route: PO; pf1 Medication: 22:07 VIS not applicable for this client. jb4 Outcome: 21:41 Discharge ordered by MD. sp4 22:07 Discharged to home ambulatory. jb4 22:07 Condition: stable 22:07 Discharge instructions given to patient, Instructed on discharge instructions, follow up and referral plans. medication usage, Demonstrated understanding of instructions, follow-up care, medications, Prescriptions given X 2. 22:09 Patient left the ED. jb4 Signatures: Dispatcher [employer] SUSYPR Heramnn Sujey santoyo Ruchi Wiseman, RN RN Chuck Klein PA PA cp Bryson, James, RN RN jb4 Jean Paul Devi RN RN bp Waits, Jodi jw7 Curly Mart MD MD bs3 Lauren Lepe RN RN pf1 Marcelo Coffman MD MD sp4
--- NOTE | 2022-12-30 21:42 | EDPHYS ---
Physician Documentation [facility] Name: Paris Coley Age: 32 yrs Sex: Female : 1990 Arrival Date: 12/30/2022 Time: 17:33 Bed 12 Private MD: ED Physician Marcelo Coffman HPI: 12/30 18:33 This 32 yrs old Female presents to ER via Ambulatory with complaints of cp Possible Infection. 20:37 Patient sent in by the [facility] for LP and work-up of fungal meningitis in the setting of bs3 getting cosmetic surgery in August in [place] at 1 particular site she denies any current complaints. Historical: - Allergies: 17:48 No Known Allergies; iw - Home Meds: 17:48 None [Active]; iw - PMHx: 17:48 None; iw - PSHx: 17:48 tummy tuck; rhinoplasty; breast augmentation; iw - Immunization history:: Adult Immunizations. ROS: 20:37 Constitutional: Negative for fever, chills bs3 20:37 All other systems are negative. Exam: 18:50 ECG was reviewed by the Attending Physician. cp 20:37 Constitutional: This is a well developed, well nourished patient who is awake, alert, bs3 and in no acute distress. Head/Face: Normocephalic, atraumatic. Eyes: Pupils equal round and reactive to light, extra-ocular motions intact. Lids and lashes normal. ENT: mmm, no posterior phyarngeal erythema Neck: Trachea midline, no thyromegaly, no neck stiffness Chest/axilla: Normal chest wall appearance and motion. Nontender with no deformity. No lesions are appreciated. Cardiovascular: Regular rate and rhythm with a normal S1 and S2. symmetric pulses in upper extremities Respiratory: Lungs have equal breath sounds bilaterally, clear to auscultation, no respiratory distress Abdomen/GI: Soft, non-tender, no rebound or guarding MS/ Extremity: Pulses equal, no cyanosis. Neurovascular intact. Full, normal range of motion. Neuro: Awake and alert, GCS 15, oriented to person, place, time, and situation. Cranial nerves II-XII grossly intact. Motor strength 5/5 in all extremities. Sensory grossly intact. Psych: Awake, alert, with orientation to person, place and time. Behavior, mood, and affect are within normal limits. Vital Signs: 17:46 BP 151 / 94; Pulse 98; Resp 16; Temp 97.7; Pulse Ox 100% on R/A; Weight 83.91 kg; iw Height 5 ft. 2 in. ; 20:39 BP 130 / 85; Pulse 82; Resp 16; Pulse Ox 99% on R/A; jb4 21:28 BP 129 / 81; Pulse 80; Resp 16; Pulse Ox 100% on R/A; jb4 17:46 Body Mass Index 33.84 (83.91 kg, 157.48 cm) iw Procedures: 20:37 Lumbar Puncture: Patient placed in sitting position. Prepped with Betadine. Draped bs3 using sterile technique. Puncture site dressed with band aid, Patient tolerated Initially we tried in the right lateral recumbent however I was unsuccessful I then transitioned her to sitting and successfully entered the space there was clear fluid this was sent per CDC guidelines and with the help of the charge nurse. MDM: 17:54 Patient medically screened. 20:37 Data reviewed: vital signs, nurses notes. ED course: Patient sent for rule out of bs3 fungal meningitis she is well-appearing here she had a slight headache but this is chronic in nature not significantly changed will order MRI with and without contrast we will do LP signed out pending results of LP and MRI. 05 18:30 Order name: Blood Culture Adult (2) 12/30 18:30 Order name: CBC with Diff; Complete Time: 20:54 05/30 20:54 Interpretation: Normal except: RBC 4.89. 12/30 18:30 Order name: CMP; Complete Time: 20:54 /30 20:54 Interpretation: Normal except: GLOB 4.1; A/G 1.0. / 18:30 Order name: Lactate w/ 2H reflex if indic.; Complete Time: 20:54 05/30 20:54 Interpretation: Reviewed. 12/30 18:30 Order name: Protime (+inr); Complete Time: 20:54 cp /30 21:09 Interpretation: Reviewed. 12/30 18:30 Order name: Ptt, Activated; Complete Time: 20:54 12/30 18:30 Order name: Urinalysis w/ reflexes; Complete Time: 20:54 cp 12/30 21:09 Interpretation: Reviewed. cp 05 18:30 Order name: PREGU; Complete Time: 20:54 cp 0530 19:38 Order name: CSF Cell Count; Complete Time: 20:54 bs3 12/30 19:38 Order name: Csf Culture bs3 12/30 19:38 Order name: Spinal Fluid Profile; Complete Time: 20:54 bs3 30 21:21 Interpretation: Reviewed. cp 05 20:07 Order name: Acid Fast Bacilli Culture EDMS 12/30 20:07 Order name: Fungal Culture and Stain EDMS 12/30 22:05 Order name: Miscellaneous Test Lab EDMS 12/30 22:06 Order name: Miscellaneous Micro Reference EDMS 12/30 18:42 Order name: Brain W/Wo Cont; Complete Time: 20:54 EDMS 12/30 18:30 Order name: EKG; Complete Time: 18:31 cp 12/30 18:30 Order name: Accucheck; Complete Time: 19:06 cp 12/30 18:30 Order name: Cardiac monitoring; Complete Time: 19:06 cp 12/30 18:30 Order name: EKG - Nurse/Tech; Complete Time: 18:44 cp 12/30 18:30 Order name: IV Saline Lock - Large Bore; Complete Time: 19:06 cp 30 18:30 Order name: Labs collected and sent; Complete Time: 19:06 cp 30 18:30 Order name: O2 Per Protocol; Complete Time: 19:06 cp 30 18:30 Order name: O2 Sat Monitoring; Complete Time: 19:06 cp 12/30 18:30 Order name: Vital Signs; Complete Time: 19:06 cp 30 18:35 Order name: LP Setup; Complete Time: 19:06 bs3 EC:50 Rate is 76 beats/min. Rhythm is regular. MN interval is normal. QRS interval is normal. cp QT interval is normal. T waves are Inverted in lead aVR. Interpreted by me. Reviewed by me. Administered Medications: 19:00 Drug: Midazolam IVP or IV 2 mg Route: IVP; Site: right antecubital; bp 22:01 Drug: Ibuprofen PO 600 mg Route: PO; pf1 22:02 Drug: Acetaminophen-Codeine PO (300 mg-30 mg) 2 tabs Route: PO; pf1 22:02 Drug: Ondansetron PO 4 mg Route: PO; pf1 Disposition: 20:37 I reviewed the patient's care provided by Advanced Practice Provider \T\ agree w/ the bs3 diagnosis \T\ care plan. I personally saw the pt \T\ performed a substantive portion of the visit, incldng all aspects of the (History/Exam/Medical Decision Making). Disposition Summary: 12/30/22 21:41 Discharge Ordered Location: Home sp4 Problem: new sp4 Symptoms: are unchanged sp4 Condition: Stable sp4 Diagnosis - Encounter for screening for infectious and parasitic diseases, unspecified sp4 Followup: sp4 - With: Private Physician - When: As needed - Reason: Discharge Instructions: - Discharge Summary Sheet sp4 - Medical Screening Exam sp4 Prescriptions: - Ibuprofen 600 mg Oral Tablet - take 1 tablet by ORAL route every 6 hours As needed take with food; 30 tablet; sp4 Refills: 0, Product Selection Permitted - Tramadol 50 mg Oral Tablet - take 1 tablet by ORAL route every 8 hours as needed; 12 tablet; Refills: 0, sp4 Product Selection Permitted Signatures: Dispatcher [employer] Ruchi Gaston, RN RN Chuck Klein PA PA Jean Paul Ramirez RN RN Curly Webster MD MD bs3 Lauren Lepe RN RN pf1 Marcelo Coffman MD MD sp4
[2022-12-30] MEDS ORDERED: IBUPROFEN 400 MG TAB ONE (22:05)
[2022-12-30] MEDS ORDERED: IBUPROFEN 200 MG TAB PO ONE (22:05)
[2022-12-30] MEDS ORDERED: ONDANSETRON 4 MG (ODT) TAB ONE (22:05)
[2022-12-30] MEDS ORDERED: CODEINE 30MG/APAP 300MG TAB ONE (22:06)
[2022-12-30 22:26] VITALS: TEMP 97.7
[2022-12-30 22:28] VITALS: BP 129/81; O2SAT 100
--- NOTE | 2023-01-01 12:11 | EKG ---
Test Date: 2022-12-30 Test Time: 18:41:22 Presser Machine: DANIELAW MEASUREMENT RESULTS: Intervals: Rate: 76 IL: 164 QRSD: 88 QT: 380 QTc: 427 Newton: P: 50 IL: 164 QRS: -3 T: 31 INTERPRETIVE STATEMENTS: Normal sinus rhythm Normal ECG No previous ECG available for comparison Electronically Signed On 01-01-23 12:06:24 CDT by Tenzin Sommer
== END 2022-12-30 22:09 | disposition home or self-care (01) ==
LOC: ER 17:33
DX: Z11.8 Encounter for screening for other infectious and parasitic diseases (principal); Z98.82 Breast implant status
CPT/HCPCS: 93005; 87040 ×2; 87070; 85025; 36415; 89050 ×2; 83615; 81025; 84157; 85610; 82945; 83605; 85730; 84315; 81003; 87015; 87206; 80053; 83986; 87116; 87102; 70553; 62270 ×2; 96374; 99285; 87483; 87798; A9577; Q0162; J2250

== ENCOUNTER 2023-06-06 11:13 | Emergency (ER) | payer OTHER ==
--- OUTSIDE RECORDS SUMMARY | 2023-06-06 11:20 | XMS REPORT | Continuity of Care Document ---
:1990 Author Organization [facility] t Address [address] [facility] [address] [place] [address] Care Team Providers Name Role Phone Bryce Varghese Primary Care Physician [email or web address] Attending Clinician Unavailable Kell Ascencio PA-C Attending Clinician KELL ASCENCIO Attending Clinician Unavailable Bryce Varghese Attending Clinician Doctor Unassigned, [place] Attending Clinician Unavailable Sahil Rios MD Attending Clinician Only, [facility] Test Attending Clinician Unavailable Sagar Shea MD Attending Clinician [facility], [facility] Attending Clinician Unavailable Ultrasound, [facility] Mfm Attending Clinician Unavailable Donya Ramirez MD, Avelina Attending Clinician [phone] SAHIL RIOS Attending Clinician Unavailable Lab, Ad[facility] Fam Pob I Attending Clinician Unavailable Mora Alarcon Attending Clinician Tom Craft PA-C Attending Clinician MORA REEVES Attending Clinician Unavailable Ultrasound, Ang-[facility] Attending Clinician Unavailable Natacha Alaniz MD Attending Clinician 2, Adc Lab Attending Clinician Unavailable Jayson Cote MD Attending Clinician SAHIL RIOS Admitting Clinician Unavailable [email or web address]_S Admitting Clinician Unavailable Sahil Rios MD Admitting Clinician Payers Payer Name Policy Type Policy Number Effective Date Expiration Date Fredo downing [facility] [id number] 2020 00:00:00 JOYCELYN MS - [id number] [place] [id number] [place] [facility] - [id number] 2018 OUT OF STATE 00:00:00 Problems Condition Condition Condition Status Onset Resolution Last Treating Co mments Source Name Details Category Date Date Treatment Clinician Date 39 weeks 39 weeks Disease Active Unive rs gestation gestation 3-22 ity of of of 00:00: [place] [facility] Encounter Encounter Disease Active Uni vers for for 3-22 ity of planned planned 00:00: [place] induction induction 00 [facility] of labor of labor [place] Liveborn Liveborn Disease Active Unive rs , of , of 3-22 [place] y of [place] , , [place] born [place] born in [facility] hospital by vaginal by vaginal delivery delivery [...] growth growth 00:00: [place] affecting affecting 00 [facility] , , Br anch antepartum antepartum , single , single or or unspecifie unspecifie d fetus d fetus Anxiety Anxiety Disease Active 2019-08 Univers disorder, disorder, - it[place] of [place]specif[place] type [place] [facility] Other Other Disease Active 2019-08 Univers rhinitis rhinitis 1-09 ity of 00:00: [address] Obesity Obesity Disease Active Univers (BMI (BMI 8-19 ity of 30-39.9) 30-39.9) 00:00: [address] High-risk High-risk Disease Active Uni vers 8-19 ity of in third in third 00:00: [place] trimester trimester 00 [facility] Medication Medication Disease Active U nivers exposure exposure 8-19 ity of during during 00:00: [place] first first 00 Medical trimester trimester Bran ch of of Allergies, Adverse Reactions, Alerts Allergy Allergy Status Severity Reaction(s) Onset Inactive Treating Comm ents Source Name Type Date Date Clinician No Known DA Active [facility] Allergie 11-22 [place] [facility] NO KNOWN Drug Active Univers ALLERGIE Class ity of S [facility] Social History Social Habit Start Date Stop Date Quantity Comments Source ASSERTION 2020-02-05 [facility] 00:00:00 [facility] Exposure to 2020-11-12 2020-12-12 Not sure [facility] SARS-CoV-2 (event) 00:00:00 14:22:00 [facility] History of Social 2020-10-22 2020-10-22 Univers ity of function 00:00:00 00:00:00 [facility] Tobacco use and 2020-03-21 2020-03-21 Smokeless Universit y of exposure 00:00:00 00:00:00 tobacco non-user [facility] Alcohol intake 2020-03-21 2020-03-21 Ex-drinker [facility] 00:00:00 00:00:00 (finding) [facility] Sex Ass[birth year] At [birth year] Universit y of 00:00:00 00:00:00 [facility] Smoking Status Start Date Stop Date Source Never smoked tobacco [facility] Medications Ordered Filled Start Stop Current Ordering Indication Dosage Frequency Signature Comments Components Source Medication Medication Date Date Medication? Clinician (SIG) Name Name LONAM FE 2020-08 Yes [id number] 1{tbl} Take 1 Univers 1 mg-20 mcg 0-04 tablet by ity of (21)/75 mg 00:00: mouth [place] (7) tablet 00 daily. Medical Branch LOESTRIN FE 2020-08 Yes [id number] 1{tbl} Take 1 Univers 1 mg-20 mcg 0-04 tablet by ity of (21)/75 mg 00:00: mouth [place] (7) tablet 00 daily. Medical Branch LOESTRIN FE 2020-08 Yes [id number] 1{tbl} Take 1 Univers 1 mg-20 mcg 0-04 tablet by ity of (21)/75 mg 00:00: mouth [place] (7) tablet 00 daily. Medical Branch lisdexamfet Yes Take by Uni vers amine 5-12 mouth. ity of dimesylate 19:38: [place] [facility] Branch CLONAZEPAM Yes Take by Univ ers ORAL 5-12 mouth. ity of 19:38: [place] [address] Medical Branch lisdexamfet Yes Take by Uni vers amine 5-12 mouth. ity of dimesylate 19:38: [place] [facility] Branch CLONAZEPAM Yes Take by Univ ers ORAL 5-12 mouth. ity of 19:38: [place] [address] Medical Branch lisdexamfet Yes Take by Uni vers amine 5-12 mouth. ity of dimesylate 19:38: [place] ([place] [address] Medical ORAL) Branch CLONAZEPAM Yes Take by Univ ers ORAL 5-12 mouth. ity of 19:38: [place] [address] Medical Branch zolpidem 10 Yes 10mg Take 10 mg Univers mg tablet 5-12 by mouth ity of 19:37: at bedtime [place] 24 as needed Medical for Branch Insomnia. zolpidem 10 Yes 10mg Take 10 mg Univers mg tablet 5-12 by mouth ity of 19:37: at bedtime [place] 24 as needed Medical for Branch Insomnia. zolpidem 10 Yes 10mg Take 10 mg Univers mg tablet 5-12 by mouth ity of 19:37: at bedtime [place] 24 as needed Medical for Branch Insomnia. lisdexamfet Yes Take by Uni vers amine 5-12 mouth. ity of dimesylate 14:38: [place] (VYVANSE 08 Medical ORAL) Branch CLONAZEPAM Yes Take by Univ ers ORAL 5-12 mouth. ity of 14:38: [place] [address] Medical Branch lisdexamfet Yes Take by Uni vers amine 5-12 mouth. ity of dimesylate 14:38: [place] ([facility] Medical [facility]) Branch CLONAZEPAM Yes Take by Univ ers ORAL 5-12 mouth. ity of 14:38: [place] [address] Medical Branch lisdexamfet Yes Take by Uni vers amine 5-12 mouth. ity of dimesylate 14:38: [place] ([facility] Medical [facility]) Branch CLONAZEPAM Yes Take by Univ ers ORAL 5-12 mouth. ity of 14:38: [place] [address] Medical Branch zolpidem 10 Yes 10mg Take 10 mg Univers mg tablet 5-12 by mouth ity of 14:37: at bedtime [place] 24 as needed Medical for Branch Insomnia. zolpidem 10 Yes 10mg Take 10 mg [...] needed Medical for Branch Insomnia. zolpidem 10 Yes 10mg Take 10 mg Univers mg tablet 5-12 by mouth ity of 14:37: at bedtime [place] 24 as needed Medical for Branch Insomnia. zolpidem 10 Yes 10mg Take 10 mg Univers mg tablet 5-12 by mouth ity of 14:37: at bedtime [place] 24 as needed Medical for Branch Insomnia. zolpidem 10 Yes 10mg Take 10 mg Univers mg tablet 5-12 by mouth ity of 14:37: at bedtime [place] 24 as needed Medical for Branch Insomnia. zolpidem 10 Yes 10mg Take 10 mg Univers mg tablet 5-12 by mouth ity of 14:37: at bedtime [place] 24 as needed Medical for Branch Insomnia. zolpidem 10 Yes 10mg Take 10 mg Univers mg tablet 5-12 by mouth ity of 14:37: at bedtime [place] 24 as needed Medical for Branch Insomnia. LOESTRIN FE Yes [id number] 1{tbl} Take 1 Univers 1 mg-20 mcg 5-12 tablet by ity of (21)/75 mg 00:00: mouth [place] (7) tablet 00 daily. Medical Branch SERTraline Yes [id number] 25mg Take 1 U nivers (ZOLOFT) 25 5-12 tablet by ity of mg tablet 00:00: mouth [place] 00 daily. Medical Branch LOESTRIN FE Yes [id number] 1{tbl} Take 1 Univers 1 mg-20 mcg 5-12 tablet by ity of (21)/75 mg 00:00: mouth [place] (7) tablet 00 daily. Medical Branch SERTraline Yes [id number] 25mg Take 1 U nivers (ZOLOFT) 25 5-12 tablet by ity of mg tablet 00:00: mouth [place] 00 daily. [facility] Branch LOESTRIN FE Yes [id number] 1{tbl} Take 1 Univers 1 mg-20 mcg 5-12 tablet by ity of (21)/75 mg 00:00: mouth [place] (7) tablet 00 daily. Medical Branch SERTraline Yes [id number] 25mg Take 1 U nivers (ZOLOFT) 25 5-12 tablet by ity of mg tablet 00:00: mouth [place] 00 daily. [facility] Branch SERTraline Yes [id number] 25mg Take 1 U nivers (ZOLOFT) 25 5-12 tablet by ity of mg tablet 00:00: mouth [place] 00 daily. [facility] Branch SERTraline Yes [id number] 25mg Take 1 U nivers (ZOLOFT) 25 5-12 tablet by ity of mg tablet 00:00: mouth [place] 00 daily. [facility] Branch SERTraline Yes [id number] 25mg Take 1 U nivers (ZOLOFT) 25 5-12 tablet by ity of mg tablet 00:00: mouth [place] 00 daily. [facility] LOESTRIN FE 2020- No [id number] 1{tbl} Take 1 Univers 1 mg-20 mcg 5-12 10-04 tablet by it y of (21)/75 mg 00:00: 00:00 mouth [place] (7) tablet 00 :00 daily. [facility] LOESTRIN FE Yes [id number] 1{tbl} Take 1 Univers 1 mg-20 mcg 4-13 tablet by ity of (21)/75 mg 00:00: mouth [place] (7) tablet 00 daily. [facility] LOESTRIN FE Yes [id number] 1{tbl} Take 1 Univers 1 mg-20 mcg 4-13 tablet by ity of (21)/75 mg 00:00: mouth [place] (7) tablet 00 daily. [facility] LOESTRIN FE Yes [id number] 1{tbl} Take 1 Univers 1 mg-20 mcg 4-13 tablet by ity of (21)/75 mg 00:00: mouth [place] (7) tablet 00 daily. [facility] LOESTRIN FE 2020- No [id number] 1{tbl} Take 1 Univers 1 mg-20 mcg 4-13 05-12 tablet by it y of (21)/75 mg 00:00: 00:00 mouth [place] (7) tablet 00 :00 daily. [facility] LOESTRIN FE 2020- No [id number] 1{tbl} Take 1 Univers 1 mg-20 mcg 4-13 05-12 tablet by it y of (21)/75 mg 00:00: 00:00 mouth [place] (7) tablet 00 :00 daily. Medical Branch norethindro Yes [id number] 1{tbl} Take 1 Univers ne 0.35 mg 4-12 tablet by ity of tablet 00:00: mouth [place] 00 daily. Medical Branch SERTraline Yes [id number] 25mg Take 1 U nivers (ZOLOFT) 25 4-12 tablet by ity of mg tablet 00:00: mouth [place] 00 daily. Medical Branch SERTraline Yes [id number] 25mg Take 1 U nivers (ZOLOFT) 25 4-12 tablet by ity of mg tablet 00:00: mouth [place] 00 daily. Medical Branch SERTraline Yes [id number] 25mg Take 1 U nivers (ZOLOFT) 25 4-12 tablet by ity of mg tablet 00:00: mouth [place] 00 daily. Medical Branch SERTraline Yes [id number] 25mg Take 1 U nivers (ZOLOFT) 25 4-12 tablet by ity of mg tablet 00:00: mouth [place] 00 daily. Medical Branch SERTraline 2020- No [id number] 25mg Take 1 Univers (ZOLOFT) 25 4-12 05-12 tablet by it y of mg tablet 00:00: 00:00 mouth [place] 00 :00 daily. Medical Branch SERTraline 2020- No [id number] 25mg Take 1 Univers (ZOLOFT) 25 4-12 05-12 tablet by it y of mg tablet 00:00: 00:00 mouth [place] 00 :00 daily. Medical Branch norethindro 2020- No [id number] 1{tbl} Take 1 Univers ne 0.35 mg 4-12 04-13 tablet by ity of tablet 00:00: 00:00 [...] [place] 59 evening. Medical Branch zolpidem 10 0 Yes 10mg Take 10 mg Univers mg tablet 3-24 by mouth ity of 02:24: at bedtime [place] 59 as needed Medical for Branch Insomnia. levocetiriz 0 Yes 5mg Take 5 mg U nivers ine (XYZAL) 3-24 by mouth ity of 5 mg tablet 02:24: every [place] 59 evening. Medical Branch zolpidem 10 0 Yes 10mg [...] [place] 59 evening. Medical Branch zolpidem 10 0 Yes 10mg Take 10 mg Univers mg tablet 3-24 by mouth ity of 02:24: at bedtime [place] 59 as needed Medical for Branch Insomnia. levocetiriz 0 Yes 5mg Take 5 mg U nivers ine (XYZAL) 3-24 by mouth ity of 5 mg tablet 02:24: every [place] 59 evening. Medical Branch zolpidem 10 0 Yes 10mg Take 10 mg Univers mg tablet 3-24 by mouth ity of 02:24: at bedtime [place] 59 as needed Medical for Branch Insomnia. levocetiriz 2020-0 Yes 5mg Take 5 mg U nivers ine (XYZAL) 3-24 by mouth ity of 5 mg tablet 02:24: every [place] 59 evening. Medical Branch levocetiriz 0 Yes 5mg Take 5 mg U nivers ine (XYZAL) 3-24 by mouth ity of 5 mg tablet 02:24: every [place] 59 evening. Medical Branch levocetiriz 2020-0 Yes 5mg Take 5 mg U nivers ine (XYZAL) 3-24 by mouth ity of 5 mg tablet 02:24: every [place] 59 evening. Medical Branch levocetiriz 2020-0 Yes 5mg Take 5 mg U nivers ine (XYZAL) 3-24 by mouth ity of 5 mg tablet 02:24: every [place] 59 evening. Medical Branch levocetiriz 2020-0 Yes 5mg Take 5 mg U nivers ine (XYZAL) 3-23 by mouth ity of 5 mg tablet 21:24: every [place] 59 evening. Medical Branch levocetiriz 2020-0 Yes 5mg Take 5 mg U nivers ine (XYZAL) 3-23 by mouth ity of 5 mg tablet 21:24: every [place] 59 evening. Medical Branch levocetiriz 2020-0 Yes 5mg Take 5 mg U nivers ine (XYZAL) 3-23 by mouth ity of 5 mg tablet 21:24: every [place] 59 evening. Medical Branch levocetiriz 2020-0 Yes 5mg Take 5 mg U nivers ine (XYZAL) 3-23 by mouth ity of 5 mg tablet 21:24: every [place] 59 evening. Medical Branch levocetiriz 2020-0 Yes 5mg Take 5 mg U nivers ine (XYZAL) 3-23 by mouth ity of 5 mg tablet 21:24: every [place] 59 evening. Medical Branch levocetiriz 2020-0 Yes 5mg Take 5 mg U nivers ine (XYZAL) 3-23 by mouth ity of 5 mg tablet 21:24: every [place] 59 evening. Medical Branch levocetiriz 2020-0 Yes 5mg Take 5 mg U nivers ine (XYZAL) 3-23 by mouth ity of 5 mg tablet 21:24: every [place] 59 evening. Medical Branch levocetiriz 2020-0 Yes 5mg Take 5 mg U nivers ine (XYZAL) 3-23 by mouth ity of 5 mg tablet 21:24: every [place] 59 evening. Medical Branch levocetiriz 2020-0 Yes 5mg Take 5 mg U nivers ine (XYZAL) 3-23 by mouth ity of 5 mg tablet 21:24: every [place] 59 evening. Medical Branch levocetiriz 2020-0 Yes 5mg Take 5 mg U nivers ine (XYZAL) 3-23 by mouth ity of 5 mg tablet 21:24: every [place] 59 evening. Medical Branch levocetiriz Yes 5mg Take 5 mg U nivers ine (XYZAL) 3-23 by mouth ity of 5 mg tablet 21:24: every [place] 59 evening. [facility] Branch busPIRone Yes 5mg 5 mg, Univers (BUSPAR) 3-23 Oral, BID, ity o f tablet 5 mg 01:00: First dose [place] 00 on [facility] Medical 10/22/20 at [place] 2000, Until Discontinu ed, Routine rho(D) Yes 300ug 300 mcg, Univer s immune 3-23 Intramuscu ity of globulin 00:02: lar, ONCE, [place] (RHOGAM) 41 For 1 Medical syringe 300 dose, Branch mcg Conditiona l, Routine witch Ingrid Yes Topical, Un syed (TUCKS) 50 3-23 Q4HPRN, ity of % topical 00:02: [place] pad 35 [facility] Medical 10/22/20 at Branch 1902, Until Discontinu ed, Routine, rectal/hem orrhoidal pain HYDROcodone Yes 1{tbl} 1 tablet, Univers -acetaminop 3-23 Oral, ity of hen (NORCO 00:02: Q6HPRN, [place] 5) 5-325 mg 35 Starting Medi juvenal tablet 1 Mon [place] tablet 10/22/20 at 1902, Until Discontinu ed, Routine, Pain (scale 7-10) ibuprofen Yes 600mg 600 mg, Univ ers (IBU) 3-23 Oral, ity of tablet 600 00:02: Q6HPRN, [place] mg 35 Starting Medical Mon Branch 10/22/20 at 1902, Until Discontinu ed, Routine, Pain (scale 4-6) acetaminoph Yes 650mg 650 mg, Un syed en 3-23 Oral, ity of (TYLENOL) 00:02: Q6HPRN, [place] tablet 650 35 Starting Medic al mg [facility] 10/22/20 at 1902, Until Discontinu ed, Routine, Pain (scale 1-3) diphenhydrA Yes 25mg 25 mg, Univ ers MINE 3-23 Oral, ity of (BENADRYL) 00:02: Q6HPRN, [place] tablet 25 35 Starting Medica l mg Mon Branch 10/22/20 at 190, Until Discontinu ed, Routine, Sleep, Itching diphenhydrA 0 Yes 25mg 25 mg, IV U nivers MINE-0.9 % 3-23 Piggyback, ity of sod.chlr 00:02: Administer [place] (BENADRYL) 35 over 30 Medica l 25 mg/50 mL Minutes, Bran ch piggyback Q6HPRN, 25 mg Starting 10/22/20 at 190, Until Discontinu ed, Routine, Itching ondansetron 0 Yes 4mg 4 mg, Slow Univers (ZOFRAN 3-23 IV Push, ity of (PF)) 00:02: Q8HPRN, [place] injection 4 35 Starting Medi juvenal mg [facility] Branch 10/22/20 at 1901, Until Discontinu ed, Routine, Nausea and Vomiting (N/V) simethicone Yes 160mg 160 mg, Un syed (GAS RELIEF 3-23 Oral, ity of (SIMETHICON 00:02: PC+HSPRN, [place] E)) 35 Starting Medical chewable Mon Branch tablet 160 10/22/20 at mg 1901, Until Discontinu ed, Routine, Gas magnesium 0 Yes 30mL 30 mL, Univer s hydroxide 3-23 Oral, ity of (MILK OF 00:02: QDAILYPRN, [place] MAGNESIA) 35 Starting Medica l 400 mg/5 mL Mon Branch suspension 10/22/20 at 30 mL 1901, Until Discontinu ed, Routine, Constipati on benzocaine- Yes Topical, Un syed menthol 3-23 PRN, ity of (DERMOPLAST 00:02: [place] 20-0.5 % 35 Mon Medical topical 10/22/20 at Branch spray 190, Until Discontinu ed, Routine, Perineum discomfort 0 Yes [id number] 1{tbl} Take 1 U nivers vitamin 3-23 tablet by ity of w/FA tablet 00:00: mouth [place] 00 daily. Medical Branch docusate 0 Yes [id number] 240mg Take 1 Un syed calcium 240 3-23 capsule by it y of mg capsule 00:00: mouth once [place] 00 daily as Medical needed for Branch Constipati on. ferrous 2020-0 Yes [id number] 325mg Take 1 Uni vers sulfate 325 3-23 tablet by ity of mg (65 mg 00:00: mouth 2 [place] iron) 00 (two) Medical tablet times Branch daily. ibuprofen 2020-0 Yes [id number] 600mg Take 1 U nivers 600 mg 3-23 tablet by ity of tablet 00:00: mouth [place] 00 every 6 Medical (six) Branch hours as needed (Pain). Take with food or milk. Yes [id number] 1{tbl} Take 1 U nivers vitamin 3-23 tablet by ity of w/FA tablet 00:00: mouth [place] 00 daily. Medical Branch docusate Yes [id number] 240mg Take 1 Un syed calcium 240 3-23 capsule by it y of mg capsule 00:00: mouth once [place] 00 daily as Medical needed for Branch Constipati on. ferrous 2020-0 Yes [id number] 325mg Take 1 Uni vers sulfate 325 3-23 tablet by ity of mg (65 mg 00:00: mouth 2 [place] iron) 00 (two) Medical tablet times Branch daily. ibuprofen Yes [id number] 600mg Take 1 U nivers 600 mg 3-23 tablet by ity of tablet 00:00: mouth [place] 00 every 6 Medical (six) Branch hours as needed (Pain). Take with food or milk. 2020-0 Yes [id number] 1{tbl} Take 1 U nivers vitamin 3-23 tablet by ity of w/FA tablet 00:00: mouth [place] 00 daily. Medical Branch docusate 0 Yes [id number] 240mg Take 1 Un syed calcium 240 3-23 capsule by it y of mg capsule 00:00: mouth once [place] 00 daily as Medical needed for Branch Constipati on. ferrous 2020-0 Yes [id number] 325mg Take 1 Uni vers sulfate 325 3-23 tablet by ity of mg (65 mg 00:00: mouth 2 [place] iron) 00 (two) Medical tablet times Branch daily. ibuprofen 2020-0 Yes [id number] 600mg Take 1 U nivers 600 mg 3-23 tablet by ity of tablet 00:00: mouth [place] 00 every 6 Medical (six) Branch hours as needed (Pain). Take with food or milk. 2020-0 Yes [id number] 1{tbl} Take 1 U nivers vitamin 3-23 tablet by ity of w/FA tablet 00:00: mouth [place] 00 daily. Medical Branch docusate Yes [id number] 240mg Take 1 Un syed calcium 240 3-23 capsule by it y of mg capsule 00:00: mouth once [place] 00 daily as Medical needed for Branch Constipati on. ferrous Yes [id number] 325mg Take 1 Uni vers sulfate 325 3-23 tablet by ity of mg (65 mg 00:00: mouth 2 [place] iron) 00 (two) Medical tablet times Branch daily. ibuprofen Yes [id number] 600mg Take 1 U nivers 600 mg 3-23 tablet by ity of tablet 00:00: mouth [place] 00 every 6 Medical (six) Branch hours as needed (Pain). Take with food or milk. 0 Yes [id number] 1{tbl} Take 1 U nivers vitamin 3-23 tablet by ity of w/FA tablet 00:00: mouth [place] 00 daily. Medical Branch docusate Yes [id number] 240mg Take 1 Un syed calcium 240 3-23 capsule by it y of mg capsule 00:00: mouth once [place] 00 daily as Medical needed for Branch Constipati on. ferrous 0 Yes [id number] 325mg Take 1 Uni vers sulfate 325 3-23 tablet by ity of mg (65 mg 00:00: mouth 2 [place] iron) 00 (two) Medical tablet times Branch daily. ibuprofen Yes [id number] 600mg Take 1 U nivers 600 mg 3-23 tablet by ity of tablet 00:00: mouth [place] 00 every 6 Medical (six) Branch hours as needed (Pain). Take with food or milk. 2020-0 Yes [id number] 1{tbl} Take 1 U nivers vitamin 3-23 tablet by ity of w/FA tablet 00:00: mouth [place] 00 daily. Medical Branch docusate Yes [id number] 240mg Take 1 Un syed calcium 240 3-23 capsule by it y of mg capsule 00:00: mouth once [place] 00 daily as Medical needed for Branch Constipati on. ferrous 2020-0 Yes [id number] 325mg Take 1 Uni vers sulfate 325 3-23 tablet by ity of mg (65 mg 00:00: mouth 2 [place] iron) 00 (two) Medical tablet times Branch daily. ibuprofen 2020-0 Yes [id number] 600mg Take 1 U nivers 600 mg 3-23 tablet by ity of tablet 00:00: mouth [place] 00 every 6 Medical (six) Branch hours as needed (Pain). Take with food or milk. 2020-0 Yes [id number] 1{tbl} Take 1 U nivers vitamin 3-23 tablet by ity of w/FA tablet 00:00: mouth [place] 00 daily. Medical Branch docusate 0 Yes [id number] 240mg Take 1 Un syed calcium 240 3-23 capsule by it y of mg capsule 00:00: mouth once [place] 00 daily as Medical needed for Branch Constipati on. ferrous 2020-0 Yes [id number] 325mg Take 1 Uni vers sulfate 325 3-23 tablet by ity of mg (65 mg 00:00: mouth 2 [place] iron) 00 (two) Medical tablet times Branch daily. ibuprofen 0 Yes [id number] 600mg Take 1 U nivers 600 mg 3-23 tablet by ity of tablet 00:00: mouth [place] 00 every 6 Medical (six) Branch hours as needed (Pain). Take with food or milk. 2020-0 Yes [id number] 1{tbl} Take 1 U nivers vitamin 3-23 tablet by ity of w/FA tablet 00:00: mouth [place] 00 daily. Medical Branch docusate 2020-0 Yes [id number] 240mg Take 1 Un syed calcium 240 3-23 capsule by it y of mg capsule 00:00: mouth once [place] 00 daily as Medical needed for Branch Constipati on. ferrous 2020-0 Yes [id number] 325mg Take 1 Uni vers sulfate 325 3-23 tablet by ity of mg (65 mg 00:00: mouth 2 [place] iron) 00 (two) Medical tablet times Branch daily. ibuprofen 2020-0 Yes [id number] 600mg Take 1 U nivers 600 mg 3-23 tablet by ity of tablet 00:00: mouth [place] 00 every 6 Medical (six) Branch hours as needed (Pain). Take with food or milk. 2020-0 Yes [id number] 1{tbl} Take 1 U nivers vitamin 3-23 tablet by ity of w/FA tablet 00:00: mouth [place] 00 daily. Medical Branch docusate 0 Yes [id number] 240mg Take 1 Un syed calcium 240 3-23 capsule by it y of mg capsule 00:00: mouth once [place] 00 daily as Medical needed for Branch Constipati on. ferrous 0 Yes [id number] 325mg Take 1 Uni vers sulfate 325 3-23 tablet by ity of mg (65 mg 00:00: mouth 2 [place] iron) 00 (two) Medical tablet times Branch daily. ibuprofen 0 Yes [id number] 600mg Take 1 U nivers 600 mg 3-23 tablet by ity of tablet 00:00: mouth [place] 00 every 6 Medical (six) Branch hours as needed (Pain). Take with food or milk. Yes [id number] 1{tbl} Take 1 U nivers vitamin 3-23 tablet by ity of w/FA tablet 00:00: mouth [place] 00 daily. Medical Branch docusate Yes [id number] 240mg Take 1 Un syed calcium 240 3-23 capsule by it y of mg capsule 00:00: mouth once [place] 00 daily as Medical needed for Branch Constipati on. ferrous 0 Yes [id number] 325mg Take 1 Uni vers sulfate 325 3-23 tablet by ity of mg (65 mg 00:00: mouth 2 [place] iron) 00 (two) Medical tablet times Branch daily. ibuprofen 0 Yes [id number] 600mg Take 1 U nivers 600 mg 3-23 tablet by ity of tablet 00:00: mouth [place] 00 every 6 Medical (six) Branch hours as needed (Pain). Take with food or milk. 2020-0 Yes [id number] 1{tbl} Take 1 U nivers vitamin 3-23 tablet by ity of w/FA tablet 00:00: mouth [place] 00 daily. Medical Branch docusate 0 Yes [id number] 240mg Take 1 Un syed calcium 240 3-23 capsule by it y of mg capsule 00:00: mouth once [place] 00 daily as Medical needed for Branch Constipati on. ferrous 2020-0 Yes [id number] 325mg Take 1 Uni vers sulfate 325 3-23 tablet by ity of mg (65 mg 00:00: mouth 2 [place] iron) 00 (two) Medical tablet times Branch daily. ibuprofen 0 Yes [id number] 600mg Take 1 U nivers 600 mg 3-23 tablet by ity of tablet 00:00: mouth [place] 00 every 6 Medical (six) Branch hours as needed (Pain). Take with food or milk. 2020-0 Yes [id number] 1{tbl} Take 1 U nivers vitamin 3-23 tablet by ity of w/FA tablet 00:00: mouth [place] 00 daily. Medical Branch docusate Yes [id number] 240mg Take 1 Un syed calcium 240 3-23 capsule by it y of mg capsule 00:00: mouth once [place] 00 daily as Medical needed for Branch Constipati on. ferrous Yes [id number] 325mg Take 1 Uni vers sulfate 325 3-23 tablet by ity of mg (65 mg 00:00: mouth 2 [place] iron) 00 (two) Medical tablet times Branch daily. ibuprofen 0 Yes [id number] 600mg Take 1 U nivers 600 mg 3-23 tablet by ity of tablet 00:00: mouth [place] 00 every 6 Medical (six) Branch hours as needed (Pain). Take with food or milk. 0 Yes [id number] 1{tbl} Take 1 U nivers vitamin 3-23 tablet by ity of w/FA tablet 00:00: mouth [place] 00 daily. Medical Branch docusate 0 Yes [id number] 240mg Take 1 Un syed calcium 240 3-23 capsule by it y of mg capsule 00:00: mouth once [place] 00 daily as Medical needed for Branch Constipati on. ferrous 0 Yes [id number] 325mg Take 1 Uni vers sulfate 325 3-23 tablet by ity of mg (65 mg 00:00: mouth 2 [place] iron) 00 (two) Medical tablet times Branch daily. ibuprofen 2020-0 Yes [id number] 600mg Take 1 U nivers 600 mg 3-23 tablet by ity of tablet 00:00: mouth [place] 00 every 6 Medical (six) Branch hours as needed (Pain). Take with food or milk. 2020-0 Yes [id number] 1{tbl} Take 1 U nivers vitamin 3-23 tablet by ity of w/FA tablet 00:00: mouth [place] 00 daily. [facility] docusate Yes [id number] 240mg Take 1 Un syed calcium 240 3-23 capsule by it y of mg capsule 00:00: mouth once [place] 00 daily as Medical needed for Branch Constipati on. ferrous Yes [id number] 325mg Take 1 Uni vers sulfate 325 3-23 tablet by ity of mg (65 mg 00:00: mouth 2 [place] iron) 00 (two) Medical tablet times Branch daily. ibuprofen Yes [id number] 600mg Take 1 U nivers 600 mg 3-23 tablet by ity of tablet 00:00: mouth [place] 00 every 6 Medical (six) Branch hours as needed (Pain). Take with food or milk. Yes [id number] 1{tbl} Take 1 U nivers vitamin 3-23 tablet by ity of w/FA tablet 00:00: mouth [place] 00 daily. [facility] docusate Yes [id number] 240mg Take 1 Un syed calcium 240 3-23 capsule by it y of mg capsule 00:00: mouth once [place] 00 daily as Medical needed for Branch Constipati on. ferrous Yes [id number] 325mg Take 1 Uni vers sulfate 325 3-23 tablet by ity of mg (65 mg 00:00: mouth 2 [place] iron) 00 (two) Medical tablet times Branch daily. ibuprofen Yes [id number] 600mg Take 1 U nivers 600 mg 3-23 tablet by ity of tablet 00:00: mouth [place] 00 every 6 Medical (six) Branch hours as needed (Pain). Take with food or milk. LR 1000 mL 2020- No 125mL/h 125 mL/hr, Univers + oxytocin 10-22 IV ity of 20 units IV 22:45: 22:24 Infusion, [place] Solution 00 :00 ONCE, Mon Medica l 10/22/20 at Branch 1745, For 1 dose
In fuse 999 mL /hr & amp;nbsp;o héctor 30 minutes and then decrease rate to 125 mL/hr for the remainder.
D5W-LR IV 2021-0 2021- No 1000mL at 125 Uni vers infusion [...] approval.& nbsp;&nbsp ;Max 40 jimmie-unit s/min.
sodium 2020- No 30mL 30 mL, Univers citrate-cit 10-2222 Oral, ity of augustin acid 09:39: 14:06 PRE-PROCED [place] (BICITRA) 11 :00 URE ONCE, Medic al 500-334 1 dose, Branch mg/5 mL Starting solution 30 Mon mL 10/22/20 at 0439, Until 10/22/20 at 0906, Routine, Surgery/Pr ocedure docusate Yes [id number] 100mg Take 1 Un syed (COLACE) 2-22 capsule by ity o f 100 mg 00:00: mouth [place] capsule 00 daily. [facility] Branch docusate Yes [id number] 100mg Take 1 Un syed (COLACE) 2-22 capsule by ity o f 100 mg 00:00: mouth [place] capsule 00 daily. [facility] docusate Yes [id number] 100mg Take 1 Un syed (COLACE) 2-22 capsule by ity o f 100 mg 00:00: mouth [place] capsule 00 daily. [facility] docusate Yes [id number] 100mg Take 1 Un syed (COLACE) 2-22 capsule by ity o f 100 mg 00:00: mouth [place] capsule 00 daily. [facility] docusate Yes [id number] 100mg Take 1 Un syed (COLACE) 2-22 capsule by ity o f 100 mg 00:00: mouth [place] capsule 00 daily. [facility] Branch docusate Yes [id number] 100mg Take 1 Un syed (COLACE) 2-22 capsule by ity o f 100 mg 00:00: mouth [place] capsule 00 daily. [facility] Branch docusate Yes [id number] 100mg Take 1 Un syed (COLACE) 2-22 capsule by ity o f 100 mg 00:00: mouth [place] capsule 00 daily. [facility] Branch docusate Yes [id number] 100mg Take 1 Un syed (COLACE) 2-22 capsule by ity o f 100 mg 00:00: mouth [place] capsule 00 daily. [facility] docusate Yes [id number] 100mg Take 1 Un syed (COLACE) 2-22 capsule by ity o f 100 mg 00:00: mouth [place] capsule 00 daily. Medical Branch docusate Yes [id number] 100mg Take 1 Un syed (COLACE) 2-22 capsule by ity o f 100 mg 00:00: mouth [place] capsule 00 daily. Medical Branch docusate Yes [id number] 100mg Take 1 Un syed (COLACE) 2-22 capsule by ity o f 100 mg 00:00: mouth [place] capsule 00 daily. Medical Branch docusate Yes [id number] 100mg Take 1 Un syed (COLACE) 2-22 capsule by ity o f 100 mg 00:00: mouth [place] capsule 00 daily. Medical Branch docusate Yes [id number] 100mg Take 1 Un syed (COLACE) 2-22 capsule by ity o f 100 mg 00:00: mouth [place] capsule 00 daily. Medical Branch docusate Yes [id number] 100mg Take 1 Un syed (COLACE) 2-22 capsule by ity o f 100 mg 00:00: mouth [place] capsule 00 daily. Medical Branch docusate Yes [id number] 100mg Take 1 Un syed (COLACE) 2-22 capsule by ity o f 100 mg 00:00: mouth [place] capsule 00 daily. Medical Branch docusate Yes [id number] 100mg Take 1 Un syed (COLACE) 2-22 capsule by ity o f 100 mg 00:00: mouth [place] capsule 00 daily. Medical Branch docusate Yes [id number] 100mg Take 1 Un syed (COLACE) 2-22 capsule by ity o f 100 mg 00:00: mouth [place] capsule 00 daily. Medical Branch docusate Yes [id number] 100mg Take 1 Un syed (COLACE) 2-22 capsule by ity o f 100 mg 00:00: mouth [place] capsule 00 daily. Medical Branch docusate Yes [id number] 100mg Take 1 Un syed (COLACE) 2-22 capsule by ity o f 100 mg 00:00: mouth [place] capsule 00 daily. Medical Branch docusate Yes [id number] 100mg Take 1 Un syed (COLACE) 2-22 capsule by ity o f 100 mg 00:00: mouth [place] capsule [address] [facility] [id number] 100mg Take 1 Un syed (COLACE) 2-22 capsule by ity o f 100 mg 00:00: mouth [place] capsule [address] [facility] [id number] 100mg Take 1 Un syed (COLACE) 2-22 capsule by ity o f 100 mg 00:00: mouth [place] capsule [address] [facility] [id number] 100mg Take 1 Un syed (COLACE) 2-22 capsule by ity o f 100 mg 00:00: mouth [place] capsule [address] [facility] [id number] 100mg Take 1 Un syed (COLACE) 2-22 capsule by ity o f 100 mg 00:00: mouth [place] capsule 00 daily. Medical Branch [facility] Yes [id number] 100mg Take 1 Un syed (COLACE) 2-22 capsule by ity o f 100 mg 00:00: mouth [place] capsule 00 daily. Medical Branch BUSPIRONE 5 Yes TAKE 1 Univers mg tablet 1-27 [...] Medical DAY Branch BUSPIRONE 5 2020-0 Yes [id number] TAKE 1 Univers mg tablet 1-27 TABLET BY ity o f 00:00: MOUTH 00 TWICE A Medical DAY Branch BUSPIRONE 5 2020-0 Yes [id number] TAKE 1 Univers mg tablet 1-27 TABLET BY ity o f 00:00: MOUTH 00 TWICE A Medical DAY Branch BUSPIRONE 5 2020-0 Yes [id number] TAKE 1 Univers mg tablet 1-27 TABLET BY ity o f 00:00: MOUTH 00 TWICE A Medical DAY Branch BUSPIRONE 5 2020-0 Yes [id number] TAKE 1 Univers mg tablet 1-27 TABLET BY ity o f 00:00: MOUTH TWICE A Medical DAY Branch BUSPIRONE 5 2020-0 Yes [id number] TAKE 1 Univers mg tablet 1-27 TABLET BY ity o f 00:00: MOUTH TWICE A Medical DAY Branch BUSPIRONE 5 2020-0 Yes [id number] TAKE 1 Univers mg tablet 1-27 TABLET BY ity o f 00:00: MOUTH TWICE A Medical DAY Branch BUSPIRONE 5 2020-0 Yes [id number] TAKE 1 Univers mg tablet 1-27 TABLET BY ity o f 00:00: MOUTH TWICE A Medical DAY Branch BUSPIRONE 5 2020-0 Yes [id number] TAKE 1 Univers mg tablet 1-27 TABLET BY ity o f 00:00: MOUTH TWICE A Medical DAY Branch BUSPIRONE 5 2020-0 Yes [id number] TAKE 1 Univers mg tablet 1-27 TABLET BY ity o f 00:00: MOUTH 00 TWICE A Medical DAY Branch BUSPIRONE 5 2020-0 Yes [id number] TAKE 1 Univers mg tablet 1-27 TABLET BY ity o f 00:00: MOUTH 00 TWICE A Medical DAY Branch BUSPIRONE 5 2020-0 Yes [id number] TAKE 1 Univers mg tablet 1-27 TABLET BY ity o f 00:00: MOUTH 00 TWICE A Medical DAY Branch BUSPIRONE 5 2020-0 Yes [id number] TAKE 1 Univers mg tablet 1-27 TABLET [...] Medical DAY Branch BUSPIRONE 5 2020-0 Yes [id number] TAKE 1 Univers mg tablet 1-27 TABLET [...] Medical DAY Branch BUSPIRONE 5 2020-0 Yes [id number] TAKE 1 Univers mg tablet 1-27 TABLET BY ity o f 00:00: MOUTH 00 TWICE A Medical DAY Branch BUSPIRONE 5 2020-0 Yes [id number] TAKE 1 Univers mg tablet 1-27 TABLET BY ity o f 00:00: MOUTH 00 TWICE A Medical DAY Branch BUSPIRONE 5 2020-0 Yes [id number] TAKE 1 Univers mg tablet 1-27 TABLET BY ity o f 00:00: MOUTH [place] 00 TWICE A Medical DAY Branch lisdexamfet 2019-08- No 30mg Take 30 mg Univers amine -16 07-14 by mouth ity of (VYVANSE) 16:30: 00:00 every [place] 30 mg 11 :00 morning. Medical capsule Branch clonazePAM 2019-08- No 1mg Take 1 mg U nivers 1 mg tablet 09-1614 by mouth 3 i ty of 16:30: [...] every [place] 58 evening. Medical Branch clonazePAM 2019- Yes 1mg Take 1 mg Un syed 1 mg tablet 1-10 by mouth 3 it y of 03:26: (three) [place] 57 times Medical daily. Branch clonazePAM 2019- Yes 1mg Take 1 mg Un syed 1 mg tablet 1-10 by mouth 3 it y of 03:26: (three) [place] 57 times Medical daily. Branch clonazePAM 2019- Yes 1mg Take 1 mg Un syed 1 mg tablet 1-10 by mouth 3 it y of 03:26: (three) [place] 57 times Medical daily. Branch busPIRone 5 2019-08 Yes [id number] 5mg Take 1 Univers mg tablet 1-09 tablet by ity o f 00:00: mouth 2 [place] 00 (two) Medical times Branch daily. busPIRone 5 2019-08 Yes [id number] 5mg Take 1 Univers mg tablet 1-09 tablet by ity o f 00:00: mouth 2 [place] 00 (two) Medical times Branch daily. busPIRone 5 2019-08 Yes [id number] 5mg Take 1 Univers mg tablet 1-09 tablet by ity o f 00:00: mouth 2 [place] 00 (two) Medical times Branch daily. busPIRone 5 2019-08 Yes [id number] 5mg Take 1 Univers mg tablet 1-09 tablet by ity o f 00:00: mouth 2 [place] 00 (two) Medical times Branch daily. busPIRone 5 2019-08 Yes [id number] 5mg Take 1 Univers mg tablet 1-09 tablet by ity o f 00:00: mouth 2 [place] 00 (two) Medical times Branch daily. busPIRone 5 2019-08 Yes [id number] 5mg Take 1 Univers mg tablet 1-09 tablet by ity o f 00:00: mouth 2 [place] 00 (two) Medical times Branch daily. busPIRone 5 2019-08 Yes [id number] 5mg Take 1 Univers mg tablet 1-09 tablet by ity o f 00:00: mouth 2 [place] 00 (two) Medical times Branch daily. busPIRone 5 2019-08 Yes [id number] 5mg Take 1 Univers mg tablet 1-09 tablet by ity o f 00:00: mouth 2 [place] 00 (two) Medical times Branch daily. busPIRone 5 2019-08 Yes [id number] 5mg Take 1 Univers mg tablet 1-09 tablet by ity o f 00:00: mouth 2 [place] 00 (two) Medical times Branch daily. busPIRone 5 2019-08 No [id number] 5mg Take 1 Univers mg tablet 08-11 tablet by ity of 00:00: 00:00 mouth 2 [place] 00 :00 (two) Medical times Branch daily. busPIRone 5 2019-08 No [id number] 5mg Take 1 Univers mg tablet 08-11 tablet by ity of 00:00: 00:00 mouth 2 [place] 00 :00 (two) Medical times Branch daily. busPIRone 5 2019-08- No [id number] 5mg Take 1 Univers mg tablet 08-11 tablet by ity of 00:00: 00:00 mouth 2 [place] 00 :00 (two) Medical times Branch daily. lisdexamfet 2020-1 Yes 30mg Take 30 mg Univers amine 0-08 by mouth ity of (VYVANSE) 21:32: every [place] 30 mg 00 morning. Medical capsule Branch lisdexamfet 2020-1 Yes 30mg Take 30 mg Univers amine 0-08 by mouth ity of (VYVANSE) 21:32: every [place] 30 mg 00 morning. Medical capsule Branch lisdexamfet 2020-1 Yes 30mg Take 30 mg Univers amine 0-08 by mouth ity of (VYVANSE) 21:32: every [place] 30 mg 00 morning. Medical capsule Branch lisdexamfet 2020-1 Yes 30mg Take 30 mg Univers amine 0-08 by mouth ity of (VYVANSE) 21:32: every [place] 30 mg 00 morning. Medical capsule Branch lisdexamfet 2020-1 Yes 30mg Take 30 mg Univers amine 0-08 by mouth ity of (VYVANSE) 21:32: every [place] 30 mg 00 morning. Medical capsule Branch lisdexamfet 2020-0 Yes 30mg Take 30 mg [...] by mouth ity of 20:16: at bedtime [place] 35 as needed Medical for Branch Insomnia. [...] needed Medical for Branch Insomnia. zolpidem 10 2019-0 Yes 10mg Take 10 mg Univers mg tablet 8-19 by mouth ity of 20:16: at bedtime [place] 35 as needed Medical for Branch Insomnia. zolpidem 10 2019-0 Yes 10mg Take 10 mg Univers mg tablet 8-19 by mouth ity of 20:16: at bedtime [place] 35 as needed Medical for Branch Insomnia. zolpidem 10 2019-0 Yes 10mg Take 10 mg Univers mg tablet 8-19 by mouth ity of 20:16: at bedtime [place] 35 as needed Medical for Branch Insomnia. zolpidem 10 2019-0 Yes 10mg Take 10 mg Univers mg [...] Medical for Branch Insomnia. Immunizations Ordered Filled Date Status Comments Source Immunization Name Immunization Name [facility] 2020-08-13 Completed University of 00:00:00 [facility] TD 2020-08-13 Completed University of 00:00:00 [facility] TD 2020-08-13 Completed University of 00:00:00 [facility] TD 2020-08-13 Completed University of 00:00:00 [facility] TD 2020-08-13 Completed University of 00:00:00 [facility] TDAP 2020-08-13 Completed University of 00:00:00 [facility] TD 2020-08-13 Completed University of 00:00:00 [facility] TD 2020-08-13 Completed University of 00:00:00 [facility] TDAP 2020-08-13 Completed University of 00:00:00 [facility] TDAP 2020-08-13 Completed University of 00:00:00 [facility] TDAP 2020-08-13 Completed University of 00:00:00 [facility] TDAP 2020-08-13 Completed University of 00:00:00 [facility] TDAP 2020-08-13 Completed University of 00:00:00 [facility] TDAP 2020-08-13 Completed University of 00:00:00 [facility] TDAP 2020-08-13 Completed University of 00:00:00 [facility] TDAP 2020-08-13 Completed University of 00:00:00 [facility] TDAP 2020-08-13 Completed University of 00:00:00 [facility] TDAP 2020-08-13 Completed University of 00:00:00 [facility] TDAP 2020-08-13 Completed University of 00:00:00 [place] [facility] TDAP 2020-08-13 Completed University of 00:00:00 [place] [facility] TDAP 2020-08-13 Completed University of 00:00:00 [place] [facility] TDAP 2020-08-13 Completed University of 00:00:00 [facility] Branch TDAP 2020-08-13 Completed University of 00:00:00 [place] [facility] TDAP 2020-08-13 Completed University of 00:00:00 [place] [facility] TDAP 2020-08-13 Completed University of 00:00:00 [facility] Branch TDAP 2020-08-13 Completed University of 00:00:00 [facility] TDAP 2020-08-13 Completed University of 00:00:00 [facility] TDAP 2020-08-13 Completed University of 00:00:00 [facility] TDAP 2020-08-13 Completed University of 00:00:00 [facility] TDAP Unknown Completed [facility] TDAP Unknown Completed [facility] TDAP Unknown Completed [facility] TDAP Unknown Completed [facility] TDAP Unknown Completed [facility] TDAP Unknown Completed [facility] TDAP Unknown Completed [facility] Vital Signs Vital Name Observation Time Observation Value Comments Source Systolic blood 2020-12-12 19:36:00 140 mm[Hg] Univer sity of pressure [facility] Diastolic blood 2020-12-12 19:36:00 73 mm[Hg] Unive rsity of pressure [facility] Heart rate 2020-12-12 19:36:00 63 /min [facility] Body temperature 2020-12-12 19:36:00 36.61 [facility] 2020-12-12 19:36:00 18 /min [facility] Body height 2020-12-12 19:36:00 157.5 cm [facility] Body weight 2020-12-12 19:36:00 90.266 kg [facility] BMI 2020-12-12 19:36:00 36.40 kg/m2 [facility] Systolic blood 2020-11-12 18:39:00 133 mm[Hg] Univer sity of pressure [place] [facility] Diastolic blood 2020-11-12 18:39:00 89 mm[Hg] Unive rsity of pressure [place] [facility] Heart rate 2020-11-12 18:39:00 72 /min [facility]i ty [facility] [place] [facility] Body temperature 2020-11-12 18:39:00 36.94 [facility] ersity of [facility] Branch Respiratory rate 2020-11-12 18:39:00 18 /min Univ ersity of [place] [facility] Body height 2020-11-12 18:39:00 157.5 cm Universi ty of [place] [facility] Body weight 2020-11-12 18:39:00 92.534 kg [facility] [place] [facility] BMI 2020-11-12 18:39:00 37.31 kg/m2 [facility] [place] [facility] Systolic blood 2020-10-23 21:15:00 121 mm[Hg] Univer sity of pressure [place] [facility] Diastolic blood 2020-10-23 21:15:00 54 mm[Hg] Unive rsity of pressure [place] [facility] Heart rate 2020-10-23 21:15:00 67 /min [facility]i ty [facility] [place] [facility] Body temperature 2020-10-23 21:15:00 36.94 [facility] ersity of [facility] Branch Respiratory rate 2020-10-23 21:15:00 18 /min Univ ersity of [facility] Oxygen saturation in 2020-10-23 21:15:00 97 /min University of Arterial blood by [facility] Pulse oximetry Branch Body height 2020-10-22 09:22:00 157.5 cm Universi ty of [place] [facility] Body weight 2020-10-22 09:22:00 100.699 kg Universi ty of [place] [facility] BMI 2020-10-22 09:22:00 40.60 kg/m2 [facility] [place] [facility] Systolic blood 2020-10-15 16:24:00 131 mm[Hg] Univer sity of pressure [place] [facility] Diastolic blood 2020-10-15 16:24:00 83 mm[Hg] Unive rsity of pressure [place] [facility] Heart rate 2020-10-15 16:24:00 88 /min Universi [facility] [place] [facility] Body temperature 2020-10-15 16:24:00 36.78 [facility] ersity of [place] [facility] Respiratory rate 2020-10-15 16:24:00 18 /min Univ ersity of [place] [facility] Body height 2020-10-15 16:24:00 157.5 cm [facility]i [facility] of [place] [facility] Body weight 2020-10-15 16:24:00 99.338 kg [facility]i ty of [place] [facility] BMI 2020-10-15 16:24:00 40.06 kg/m2 [facility] [place] [facility] Systolic blood 2020-10-11 16:12:00 123 mm[Hg] Univer sity of pressure [place] [facility] Diastolic blood 2020-10-11 16:12:00 85 mm[Hg] Unive rsity of pressure [place] [facility] Heart rate 2020-10-11 16:12:00 87 /min Universi ty [facility] [place] [facility] Body temperature 2020-10-11 16:12:00 36.5 [facility] ersity of [place] [facility] Respiratory rate 2020-10-11 16:12:00 18 /min Univ ersity of [place] [facility] Body height 2020-10-11 16:12:00 157.5 cm Universi [facility] of [place] [facility] Body weight 2020-10-11 16:12:00 97.523 kg [facility]i [facility] [place] [facility] BMI 2020-10-11 16:12:00 39.32 kg/m2 [facility] [place] [facility] Systolic blood 2020-10-08 19:24:00 137 mm[Hg] Univer sity of pressure [place] [facility] Diastolic blood 2020-10-08 19:24:00 83 mm[Hg] Unive rsity of pressure [place] [facility] Heart rate 2020-10-08 19:24:00 84 /min [facility]i [facility] [place] [facility] Body temperature 2020-10-08 19:24:00 36.56 [facility] ersity of [place] [facility] Respiratory rate 2020-10-08 19:24:00 18 /min Univ ersity of [place] [facility] Body height 2020-10-08 19:24:00 157.5 cm [facility]i [facility] [place] [facility] Body weight 2020-10-08 19:24:00 97.977 kg [facility]i [facility] [place] [facility] BMI 2020-10-08 19:24:00 39.51 kg/m2 [facility] [place] [facility] Systolic blood 2020-10-04 17:23:00 130 mm[Hg] Univer sity of pressure [place] [facility] Diastolic blood 2020-10-04 17:23:00 73 mm[Hg] Unive rsity of pressure [place] [facility] Heart rate 2020-10-04 17:23:00 76 /min [facility]i [facility] [place] [facility] Body temperature 2020-10-04 17:23:00 36.78 [facility] ersity of [place] [facility] Respiratory rate 2020-10-04 17:23:00 18 /min Univ ersity of [place] [facility] Body height 2020-10-04 17:23:00 157.5 cm [facility]i [facility] [place] [facility] Body weight 2020-10-04 17:23:00 97.977 kg [facility]i ty of [place] [facility] BMI 2020-10-04 17:23:00 39.51 kg/m2 [facility] [place] [facility] Systolic blood 2020-10-02 14:14:00 129 mm[Hg] Univer sity of pressure [place] [facility] Diastolic blood 2020-10-02 14:14:00 82 mm[Hg] Unive rsity of pressure [place] [facility] Heart rate 2020-10-02 14:14:00 87 /min [facility]i [facility] [place] [facility] Body temperature 2020-10-02 14:14:00 36.56 [facility] ersity of [place] [facility] Respiratory rate 2020-10-02 14:14:00 18 /min Univ ersity of [place] [facility] Body height 2020-10-02 14:14:00 157.5 cm [facility] [place] [facility] Body weight 2020-10-02 14:14:00 98.975 kg [facility]i [facility] [place] [facility] BMI 2020-10-02 14:14:00 39.91 kg/m2 [facility] [place] [facility] Systolic blood 2020-09-24 22:47:00 131 mm[Hg] Univer sity of pressure [place] [facility] Diastolic blood 2020-09-24 22:47:00 69 mm[Hg] Unive rsity of pressure [place] [facility] Heart rate 2020-09-24 22:47:00 84 /min [facility]i ty [facility] [place] [facility] Body temperature 2020-09-24 22:47:00 36.5 [facility] ersity of [place] [facility] Respiratory rate 2020-09-24 22:47:00 18 /min Univ ersity of [place] [facility] Body height 2020-09-24 22:47:00 157.5 cm [facility] [place] [facility] Body weight 2020-09-24 22:47:00 97.523 kg [facility] [place] [facility] BMI 2020-09-24 22:47:00 39.32 kg/m2 [facility] [place] [facility] Systolic blood 2020-08-13 16:34:00 123 mm[Hg] Univer sity of pressure [place] [facility] Diastolic blood 2020-08-13 16:34:00 67 mm[Hg] Unive rsity of pressure [place] [facility] Heart rate 2020-08-13 16:34:00 76 /min [facility]i [facility] [place] [facility] Body temperature 2020-08-13 16:34:00 36.44 [facility] ersity of [place] [facility] Respiratory rate 2020-08-13 16:34:00 16 /min Univ ersity of [place] [facility] Body height 2020-08-13 16:34:00 157.5 cm [facility] [place] [facility] Body weight 2020-08-13 16:34:00 92.987 kg [facility] [place] [facility] BMI 2020-08-13 16:34:00 37.49 kg/m2 [facility] [place] [facility] Systolic blood 2020-07-16 14:50:00 115 mm[Hg] Univer sity of pressure [place] [facility] Diastolic blood 2020-07-16 14:50:00 67 mm[Hg] Unive rsity of pressure [place] [facility] Heart rate 2020-07-16 14:50:00 76 /min [facility] [place] [facility] Body temperature 2020-07-16 14:50:00 36.5 [facility] ersity [facility] [place] [facility] Respiratory rate 2020-07-16 14:50:00 18 /min Univ ersity of [place] [facility] Body height 2020-07-16 14:50:00 157.5 cm [facility] [place] [facility] Body weight 2020-07-16 14:50:00 90.538 kg [facility] [place] [facility] BMI 2020-07-16 14:50:00 36.51 kg/m2 [facility] [place] [facility] Systolic blood 2020-06-11 14:51:00 105 mm[Hg] Univer sity of pressure [place] [facility] Diastolic blood 2020-06-11 14:51:00 65 mm[Hg] Unive rsity of pressure [place] [facility] Heart rate 2020-06-11 14:51:00 70 /min [facility] [place] [facility] Body temperature 2020-06-11 14:51:00 36.56 [facility] ers[facility] [place] [facility] Respiratory rate 2020-06-11 14:51:00 18 /min Univ ersity of [place] [facility] Body height 2020-06-11 14:51:00 157.5 cm [facility] [place] [facility] Body weight 2020-06-11 14:51:00 86.365 kg [facility] BMI 2020-06-11 14:51:00 34.82 kg/m2 [facility] Systolic blood 2020-05-10 21:31:00 124 mm[Hg] [facility] Diastolic blood 2020-05-10 21:31:00 73 mm[Hg] [facility] Heart rate 2020-05-10 21:31:00 74 /min [facility] Body temperature 2020-05-10 21:31:00 36.56 Christie [facility] Respiratory rate 2020-05-10 21:31:00 18 /min [facility] Body height 2020-05-10 21:31:00 157.5 cm [facility] Body weight 2020-05-10 21:31:00 84.369 kg [facility] BMI 2020-05-10 21:31:00 34.02 kg/m2 [facility] Systolic blood 2020-03-21 20:08:00 113 mm[Hg] [facility] Diastolic blood 2020-03-21 20:08:00 76 mm[Hg] [facility] Heart rate 2020-03-21 20:08:00 80 /min [facility] Body temperature 2020-03-21 20:08:00 36.83 Christie [facility] Respiratory rate 2020-03-21 20:08:00 18 /min [facility] Body height 2020-03-21 20:08:00 156.2 cm [facility] Body weight 2020-03-21 20:08:00 82.01 kg [facility] BMI 2020-03-21 20:08:00 33.61 kg/m2 [facility] Procedures Procedure Date / Time Performing Clinician Source Performed CONSENT FOR 2020-11-12 05:01:00 Doctor Unassmiroslava, No [facility] CBC WITH DIFF 2020-10-23 09:40:00 Sahil Rios [facility] VENOUS CORD GAS 2020-10-22 22:22:00 Sahil Rios [facility] CBC WITH DIFF 2020-10-22 10:04:00 Gabriel [facility] ADC OR AMPARO ONLY - 2020-10-22 09:55:00 Sahil Rios [facility] HEPATITIS B SURFACE 2020-10-22 09:45:00 Sahil Rios [facility] ANTIGEN [facility] HB ABO GROUPING 2020-10-22 09:45:00 Sahil Rios [facility] RHO (D) IMMUNE GLOBULIN 2020-10-22 09:45:00 Sahil Rios [facility] HIV 1/2 AG-AB WITH 2020-10-22 09:45:00 Sahil Rios [facility] NON-STRESS TEST 2020-10-15 18:13:34 Sahil Rios [facility] NOTICE OF PRIVACY 2020-10-15 17:28:06 Doctor Unassigned, [facility] ASSIGNMENT OF BENEFITS 2020-10-15 17:27:42 Doctor Jaya, [facility] NON-STRESS TEST 2020-10-11 17:20:43 Sahil Rios [facility] NON-STRESS TEST 2020-10-08 20:30:34 Sahil Rios [facility] DSU PRE-OP 2020-10-08 06:01:00 Doctor Unassmiroslava, Jazmine [facility] POCT URINALYSIS W/O 2020-10-08 00:00:00 Sahil Rios [facility] NON-STRESS TEST 2020-10-04 18:35:14 Kell Ascencio [facility] BIOPHYSICAL PROFILE 2020-10-02 15:14:07 Sahil Rios [facility] POCT URINALYSIS W/O 2020-08-13 16:36:00 Sahil Rios [facility] TDAP VACCINE, >11 YRS, 2020-08-13 16:29:48 Sahil Rios [facility] POCT URINALYSIS W/O 2020-07-16 00:00:00 Sahil Rios [facility] POCT URINALYSIS W/O 2020-06-11 00:00:00 Sahil Rios [facility] POCT URINALYSIS W/O 2020-05-10 00:00:00 Sahil Rios [facility] SCANNED LAB RESULTS 2020-04-04 05:01:00 Doctor [facility], [facility] 2020-03-21 23:10:23 Sahil Rios [facility] ADC / LCC - DRUG SCREEN 2020-03-21 21:19:00 Rios Sahil Gonzalez [facility] POCT TEST 2020-03-21 00:00:00 Sahil Rios [facility] POCT URINALYSIS W/O 2020-03-21 00:00:00 Sahil Rios [facility] Encounters Start End Encounter Admission Attending Care Care Encounter Source Date/Time Date/Time Type Type Clinicians Facility Department ID 2021-06-02 Outpatient P [facility] [id number] [facility] 06:03:29 ity [facility] 2023-06-05 2023-06-05 Outpatient GC_GCBZW_Ka PRIV PRIV [id number] [facility] 00:00:00 00:00:00 omi_S [id number] Medic al 2023-05-06 2023-05-06 Outpatient GC_GCBZW_Ka PRIV PRIV [id number] [facility] 00:00:00 00:00:00 diyala_S [id number] Medic al 2023-05-06 2023-05-06 Outpatient GC_GCBZW_Ka PRIV PRIV [id number] [facility] 00:00:00 00:00:00 diyala_S [id number] Medic al 2023-04-23 2023-04-23 Outpatient GC_GCBZW_Ka PRIV PRIV [id number] [facility] 00:00:00 00:00:00 diyala_S [id number] Medic al 2023-04-02 2023-04-02 Outpatient GC_GCBZW_Ka PRIV PRIV [id number] [facility] 00:00:00 00:00:00 diyala_S [id number] Medic al 2023-03-09 2023-03-09 Outpatient GC_GCBZW_Ka PRIV PRIV [id number] [facility] 00:00:00 00:00:00 diyala_S [id number] Medic al 2021-09-03 2021-09-03 [facility] 1.2.596.986 [id number] Univers 00:00:00 00:00:00 Kell BOYER 350.1.13.10 i ty [facility] 4.2.7.2.686 Juan tipton PROFESSIO [phone] Ar dic[address] 2021-05-06 2021-05-06 Outpatient [facility] [id number] Univers 13:00:00 13:00:00 KELL allen [facility] 2021-05-06 2021-05-06 Refill TOM Varghese 1.2.840.114 [id number] Univers 00:00:00 00:00:00 Bryce GOODWIN 350.1.13.10 ity of [facility] 4.2.7.2.686 Kevin as [phone] [address] 2021-05-06 2021-05-06 Patient Doctor TOM 1.2.840.114 [id number] Univers 00:00:00 00:00:00 Secure Msg UnassBUDDY [place] 350.1.13.10 ity of [facility] 4.2.7.2.686 Kevin as [phone] [address] 2021-02-08 2021-02-08 [facility] 1.2.015.391 [id number] Univers 00:00:00 00:00:00 Kell Boyer 350.1.13.10 i ty [place] [phone] [address] 2020-12-12 2020-12-12 Office Silva [facility] 1.2.416.774 [id number] [facility] 14:23:01 14:56:25 Visit Kell Boyer 350.1.13.10 i ty of [place] [phone] [address] 2020-12-12 2020-12-12 Outpatient R SILVA [facility] [id number] Univers 14:00:00 14:00:00 KELL ity [facility] 2020-12-04 2020-12-04 [facility] 1.2.100.511 [id number] Univers 00:00:00 00:00:00 Kell Boyer 350.1.13.10 i ty of [place] [phone] [address] 2020-11-16 2020-11-16 Patient Silva WVDEANA 1.2.336.096 [id number] Univers 00:00:00 00:00:00 Secure Msg Kell BOYER 350.1.13.10 ity of [place].7.2.[place] [phone] Ar dic[address] 2020-11-12 2020-11-12 Routine Silva WVDE[facility] 1.2.339.011 [id number] Univers 10:31:40 11:59:09 Kell Boyer 350.1.13.10 ity of [place]7.2.[place] [phone] [address] 2020-11-12 2020-11-12 Outpatient R SILVA [facility] [id number] Univers 10:30:00 10:30:00 KELL kathryn [facility] 2020-11-12 2020-11-12 Outpatient R SHERINATALIAARIANE [facility] [id number] Univers 10:30:00 10:30:00 KELL itkathryn [facility] 2020-11-12 2020-11-12 Orders Doctor TOM 1.2.840.114 [id number] Univers 00:00:00 00:00:00 Only Unassigned, BUDDY 350.1.13.10 ity of [place] [facility] 4.2.7.2.686 Kevin as [phone] [facility] [address] [place] 2020-10-26 2020-10-26 Telephone Sahil Rios [facility] 1.2.840.114 [id number] Univers 00:00:00 00:00:00 Carlos Boyer 350.1.13.10 i ty of [place] [phone] Ar dical nal 134 [facility] 2020-10-26 2020-10-26 Patient Doctor TOM 1.2.840.114 [id number] Univers 00:00:00 00:00:00 Secure Msg Unassigned, BUDDY 350.1.13.10 ity of [place] [facility] 4.2.7.2.686 Kevin as [phone] [facility] [address] [place] 2020-10-22 2020-10-23 Hospital Sahil Rios [facility] 1.2.840.114 [id number] Univers 04:13:00 21:10:00 Encounter Carlos Boyer 350.1.13.10 ity of [place]2.[place] [facility] [phone] [facility] [address] Branch 2020-10-19 2020-10-19 Laboratory Only, Adc Test [facility] 1.2.840. 114 [id number] Univers 11:32:09 11:47:09 Only Sagar Shea 350.1.13.10 ity of [place]2.[place] [facility] [phone] [address] 2020-10-19 2020-10-19 Outpatient R [facility] [id number] Univers 11:15:00 11:15:00 ity of [facility] 2020-10-15 2020-10-15 Routine Room, [facility] 1.2.840.1 14 [id number] Univers 11:06:37 12:14:00 Sahil Rios [place] 350.1.13.10 ity of [place] [phone] Ar dical nal 134 [facility] 2020-10-15 2020-10-15 Outpatient R [facility] [id number] Univers 11:00:00 11:00:00 ity of [facility] 2020-10-15 2020-10-15 Patient Sahil Rios [facility] 1.2.241.427 [id number] Univers 00:00:00 00:00:00 Secure Msg Gonzalez [place] 350.1.13.10 ity of [place].2.[place] [phone] Ar dical NAL [address] [place] [address] 2020-10-12 2020-10-12 Offline Cutter Ultrasound, [facility] 1.2 .840.114 [id number] Univers 15:26:21 15:56:21 Visit Dnoya AshleyAvelina Jose 350.1 .13.10 ity of [place]2.7.2.[place] [phone] Ar dical nal [address] [place] [address] 2020-10-12 2020-10-12 Outpatient P [facility] [id number] Univers 15:30:00 15:30:00 ity of [facility] 2020-10-11 2020-10-11 Routine Room, [facility] 1.2.840.1 [id number] Univers 09:56:17 11:00:21 Sahil Rios [place] 350.1.13.10 ity of [place].2.[place] [phone] Ar dical nal [address] [place] [address] 2020-10-11 2020-10-11 Outpatient R [facility] [id number] Univers 10:00:00 10:00:00 ity of [facility] 2020-10-08 2020-10-08 Routine Room, [facility] 1.2.840.1 14 [id number] Univers 13:03:49 14:27:41 Gabriel Sahil Boyer 350.1.13.10 ity of [place] [phone] [facility] 134 [facility] 2020-10-08 2020-10-08 Outpatient R GABRIEL SAHIL [facility] [id number] Univers 13:45:00 13:45:00 ity of [facility] 2020-10-08 2020-10-08 Outpatient R [facility] [id number] Univers 13:00:00 13:00:00 ity of [facility] 2020-10-08 2020-10-08 Orders Doctor SANTOS 1.2.840.114 [id number] Univers 00:00:00 00:00:00 Only Unassigned, BUDDY 350.1.13.10 ity of [place] [facility] 4.2.7.2.686 Kevin as [phone] [address] 2020-10-04 2020-10-04 Routine Room, [facility] 1.2.840.1 14 [id number] Univers 11:00:47 11:15:47 Rios Sahil Boyer 350.1.13.10 ity of [place] [phone] Ar dic[address] 2020-10-04 2020-10-04 Outpatient R [facility] [id number] Univers 11:00:00 11:00:00 ity of [facility] 2020-10-02 2020-10-02 Routine Room, [facility] 1.2.840.1 14 [id number] Univers 08:01:11 09:20:39 Sahil Rios 350.1.13.10 ity of [place].2.[place] [phone] Ar dical [address] 2020-10-02 2020-10-02 Outpatient R [facility] [id number] Univers 08:00:00 08:00:00 ity of [facility] 2020-09-28 2020-09-28 Telephone Sahil Rios [facility] 1.2.840.114 [id number] Univers 00:00:00 00:00:00 Carlos Boyer 350.1.13.10 i ty of [place].2.[place] [phone] Ar dic[address] 2020-09-24 2020-09-24 Routine Silva [facility] 1.2.838.204 [id number] Univers 15:59:38 16:14:38 Kell Boyer 350.1.13.10 ity of [place]2.[place] [phone] Ar dic[address] 2020-09-24 2020-09-24 Outpatient R SILVA [facility] [id number] Univers 16:00:00 16:00:00 [facility] 2020-09-21 2020-09-21 Offline Cutter Ultrasound, [facility] 1.2 .840.114 [id number] Univers 15:35:00 16:01:21 Visit Sahil Rios Carlos Boyer 350.1.13.10 ity of [place].7.2.[place] [phone] Ar dical [address] 2020-09-21 2020-09-21 Outpatient P [facility] [id number] Univers 15:30:00 15:30:00 ity of [facility] 2020-09-12 2020-09-12 Patient Doctor UN[facility] 1.2.050.957 [id number] Univers 00:00:00 00:00:00 Secure Msg Unassigned, Y HEALTH 350.1.13.10 ity of [place] [facility] [place].7.2.[place] [phone] [address] 2020-09-10 2020-09-10 Outpatient R SAHIL IROS [facility] [id number] Univers 13:00:00 13:00:00 ity of [facility] 2020-08-30 2020-08-30 Patient Doctor [facility] AP 1.2.647.171 [id number] Univers 00:00:00 00:00:00 Secure Msg Unassigned, [place] 350.1.13.10 ity of [place] [facility] [place]2.[place] [facility] [phone] [address] 2020-08-27 2020-08-27 Outpatient R SAHIL RIOS [facility] [id number] Univers 11:15:00 11:15:00 ity of [facility] 2020-08-27 2020-08-27 Michael Gabriel [facility] 1.2.840.114 [id number] Univers 00:00:00 00:00:00 Carlos Boyer 350.1.13.10 i ty of [place] [phone] [address] 2020-08-27 2020-08-27 Refill Gabriel [facility] 1.2.551.132 [id number] Univers 00:00:00 00:00:00 Carlos Boyer 350.1.13.10 i ty of [place].2.[place] [phone] [address] 2020-08-27 2020-08-27 Patient Doctor TOM 1.2.840.114 [id number] Univers 00:00:00 00:00:00 Secure Msg Unassigned, BUDDY 350.1.13.10 ity of [place] [facility] 4.2.7.2.686 Kevin as [phone] [address] 2020-08-24 2020-08-24 Laboratory Lab, Adc Fam Pob I [facility] 1.2. 840.114 [id number] Univers 16:02:04 18:09:52 Only Mora Reeves [facility] 350.1.13.10 ity of [place] 4.2.7.2.686 [place] Professio [phone] Ar dical nal [address] [place] Office [facility] 2020-08-24 2020-08-24 Laboratory Lab, [facility] Fam Pob I [facility] 1.2. 840.114 [id number] Univers 16:06:29 16:26:29 Only Mora Reeves 350.1.13.10 ity of [place] 4.2.7.2.686 [place] Professio [phone] Ar dical nal 044 [facility] 2020-08-24 2020-08-24 Outpatient R SUZIE [facility] [id number] Univers 10:00:00 10:00:00 MORA ity [facility] 2020-08-15 2020-08-15 Offline [facility]utter [facility] 1.2 .840.114 [id number] Univers 08:32:51 09:02:51 Visit Natacha Alaniz CRUSHER MACHINE OPERATOR 350.1.13.10 ity [facility] 4.2.7.2.686 Kevin as MATERNAL [phone] Med ical & CHILD [address] [place] [address] 2020-08-15 2020-08-15 Outpatient P [facility] [id number] Univers 08:30:00 08:30:00 ity of [facility] 2020-08-13 2020-08-13 Routine Kell Ascencio [facility] 1.2.840.11 [id number] Univers 10:12:44 10:55:41 Sahil Rios 350.1.13.10 ity of [place]7.2.[place] [phone] Ar dical nal 134 [facility] 2020-08-13 2020-08-13 Outpatient R SAHIL RIOS [facility] [id number] Univers 10:30:00 10:30:00 ity of [facility] 2020-08-13 2020-08-13 Offline Cutter 2, Frde Lab [facility] 1.2.840.114 [id number] Univers 08:49:59 09:04:59 Visit Sahil Rios 350.1.13.10 ity [facility] 4.2.7.2.[place] [phone] Ar dical nal 353 [facility] 2020-08-10 2020-08-10 Patient Doctor [facility] 1.2.840.114 [id number] Univers 00:00:00 00:00:00 Secure Msg Unassigned, [place] 350.1.13.10 ity of [place]2.7.2.[place] [phone] Ar dical NAL 134 [facility] 2020-08-09 2020-08-09 Patient Doctor TOM 1.2.840.114 [id number] Univers 00:00:00 00:00:00 Secure Msg Unassigned, BUDDY 350.1.13.10 ity of [place] [facility] 4.2.7.2.686 Kevin as [phone] [address] 2020-07-16 2020-07-16 Routine Sahil Rios [facility] 1.2.436.680 [id number] Univers 08:36:14 09:24:24 Cam Jose 350.1.13.10 ity of [place].2.[place] [phone] Ar dical nal [address] [place] [address] 2020-07-16 2020-07-16 Outpatient R SAHIL RIOS [facility] [id number] Univers 08:30:00 08:30:00 ity of [facility] 2020-07-12 2020-07-12 Patient Doctor [facility] 1.2.840.114 [id number] Univers 00:00:00 00:00:00 Secure Msg Unassigned, [place] 350.1.13.10 ity of [place] 4.2.7.2.[place] [phone] Ar dical NAL 134 [facility] 2020-06-14 2020-06-14 Offline Cutter Ultrasound, [facility] 1.2 .840.114 [id number] Univers 09:51:44 11:06:44 Visit Jayson Cote CRUSHER MACHINE OPERATOR 350.1.13.10 ity of REGIONAL 4.2.7.2.686 Kevin as MATERNAL [phone] [facility] ical & CHILD [address] [place] [address] 2020-06-14 2020-06-14 Outpatient P [facility] [id number] Univers 10:00:00 10:00:00 ity of [facility] 2020-06-11 2020-06-11 Routine Sahil Rios [facility] 1.2.937.903 [id number] Univers 08:29:46 09:27:30 Cam [place] 350.1.13.10 ity of [place] 4[place]2.7.2.[place] [phone] Ar dical nal 134 [facility] 2020-06-11 2020-06-11 Outpatient R SAHIL RIOS [facility] [id number] Univers 08:30:00 08:30:00 ity of [facility] 2020-05-30 2020-05-30 Offline Cutter 2, Adc Lab [facility] 1.2.840.114 [id number] Univers 10:36:53 10:51:53 Visit Sahil Rios [place] 350.1.13.10 ity of [place] 4.[place].7.2.[place] [phone] Ar dical nal 353 [facility] 2020-05-30 2020-05-30 Outpatient R SAHIL RIOS [facility] [id number] Univers 10:30:00 10:30:00 ity of [facility] 2020-05-28 2020-05-28 Outpatient R [facility] [id number] Univers 09:30:00 09:30:00 ity of [facility] 2020-05-10 2020-05-10 Routine Sahil Rios [facility] 1.2.027.127 [id number] Univers 16:10:28 17:03:34 Cam [place] 350.1.13.10 ity of [place] 4.[place].7.2.[place] [phone] Ar dical nal 134 [facility] 2020-05-10 2020-05-10 Outpatient R SAHIL RIOS [facility] [id number] Univers 16:00:00 16:00:00 ity of [facility] 2020-04-20 2020-04-20 Telephone Sahil Rios [facility] 1.2.840.114 [id number] Univers 00:00:00 00:00:00 Cam [place] 350.1.13.10 i ty of [place] 4[place].2.[place] [phone] Ar dical [facility] 134 [facility] 2020-04-18 2020-04-18 Outpatient R SAHIL ROIS [facility] [id number] Univers 15:45:00 15:45:00 ity of [facility] 2020 2020 Telephone Sahil Rios [facility] 1.2.840.114 [id number] Univers 00:00:00 00:00:00 Carlos [place] 350.1.13.10 i ty of [place].2.[place] [phone] [facility] 134 [facility] 2020-04-13 2020-04-13 Telephone Sahil Rios [facility] 1.2.840.114 [id number] Univers 00:00:00 00:00:00 Carlos [place] 350.1.13.10 i ty of [place] 4.[place].2.[place] [phone] [facility] 134 [facility] 2020-04-04 2020-04-04 Offline Cutter 2, Adc Lab [facility] 1.2.840.114 [id number] Univers 13:08:50 13:23:50 Visit Sahil Rios Carlos Boyer 350.1.13.10 ity of [place] 4.2.7.2.[place] [phone] [facility] 353 [facility] 2020-04-04 2020-04-04 Outpatient R [facility] [id number] Univers 13:00:00 13:00:00 ity of [facility] 2020-04-04 2020-04-04 Orders Doctor TOM 1.2.840.114 [id number] Univers 00:00:00 00:00:00 Only Unassigned, [place]UD[place] 350.1.13.10 ity of [place] [facility] 4.2.7.2.686 Kevin as [phone] [address] 2020-04-02 2020-04-02 Patient Doctor [facility] 1.2.840.114 [id number] Univers 00:00:00 00:00:00 Secure Msg Unassigned, [place] 350.1.13.10 ity of [place].2.[place] [phone] Ar dical NAL [address] [place] [address] 2020-03-23 2020-03-23 Telephone Sahil Rios [facility] 1.2.840.114 [id number] Univers 00:00:00 00:00:00 Cam [place] 350.1.13.10 i ty of [place]2.[place] [phone] Ar dical nal [address] [place] [address] 2020-03-21 2020-03-21 Initial Sahil Rios [facility] 1.2.848.873 [id number] Univers 14:48:47 16:05:19 Cam Jose 350.1.13.10 ity of [place].2.[place] [phone] [address] 2020-03-21 2020-03-21 Outpatient R SAHIL RIOS [facility] [id number] Univers 14:30:00 14:30:00 ity of [facility] Results Test Description Test Time Test Comments [...] L [Au tomated message] The system which [employer] nerated this result transmit katie reference range: [...] 33.7 g/dL 31.6-35.1 RDW-SD (test code = 58233-9) 49.9 fL 39.0-49.9 RDW-CV (test code = 788-0) 14.6 % 12.0-15.5 PLT (test code = 777-3) See_Comment L [Au tomated message] The system which ge nerated this result transmit katie reference range: 166 - 35 8 10*3/?L. The reference range was not used to interpret th is result as normal/abnormal . MPV (test code = 84984-6) 12.0 fL 9.5-12.9 NRBC/100 WBC (test code = See_Comment [ Automated message] The [id number]) system which ge nerated this result transmit katie reference range: 0.0 - 10 .0 /100 WBCs. The reference r yajaira was not used to interpr et this result as normal/abnor mal. NRBC x10^3 (test code = <0.01 See_Comment [Au tomated message] The [id number]) system which ge nerated this result transmit katie reference range: 10*3/?L. The reference range was not u sed to interpret this result as normal/abnormal . GRAN MAT (NEUT) % (test code 79.3 % = 770-8) IMM GRAN % (test code = 0.70 % [id number]) LYMPH % (test code = 736-9) 12.8 % MONO % (test code = 5905-5) 6.2 % EOS % (test code = 713-8) 0.7 % BASO % (test code = 706-2) 0.3 % GRAN MAT x10^3(ANC) (test 13.78 10*3/uL 1.88-7.09 H code = [id number]) IMM GRAN x10^3 (test code = 0.12 10*3/uL 0.00-0.06 H [id number]) LYMPH x10^3 (test code = 2.22 10*3/uL 1.32-3.29 731-0) MONO x10^3 (test code = 1.08 10*3/uL 0.33-0.92 H 742-7) EOS x10^3 (test code = 0.13 10*3/uL 0.03-0.39 711-2) BASO x10^3 (test code = 0.06 10*3/uL 0.01-0.07 704-7) Lab Interpretation (test Abnormal code = 50260-5) [facility] [id number] 09:59:04 Test Item Value Reference Range Interpretation Comments RPR (Qualitative) (test code = Nonreactive Nonreactive 71454-6) Lab Interpretation (test code = Normal 38097-2) [facility] IMMUNE [id number] 01:42:05 Test Item Value Reference Range Interpretation Comments RHIG CANDIDATE? No- see comment Patient i s not a (test code = candidate for R hIg- 5055) Patient is Rh Positive.Perfor med at [facility] Laboratory Services - [facility] Blood [address] [place], [place] [address]Toll Free: [phone] A No. [id number] [facility] HospitalArterial Cord [id number] 22:40:05 Test Item Value Reference Range Interpretation Comments BASE EXCESS, CORD mEq/L (test code = 8967180881) AC PH, CORD (BEAKER) 7.18-7.38 (test code = 2932520257) PC02, CORD (test code See_Comment [Auto mated message] The = 8847626142) system which g enerated this result transmit katie reference range : 32 - 66 mmHg. The refer ence range was not used to interpret this result as normal/abnormal . PO2, CORD (test code See_Comment [Autom ated message] The = 5181627950) system which g enerated this result transmit katie reference range : 10 - 30 mmHg. The refer ence range was not used to interpret this result as normal/abnormal . BICARBONATE, CORD See_Comment [Automate d message] The (test code = system which ge nerated this 7511559712) result transmit katie reference range : 17 - 27 mEq/L. The refe rence range was not used to interpret this result as normal/abnormal . [facility] HospitalVenous Cord [id number] 22:36:57 Test Item Value Reference Range Interpretation Comments VENOUS BASE EXCESS, mEq/L CORD (test code = 9991596121) VENOUS PH, CORD (test 7.25-7.45 code = 4451475901) VENOUS PC02, CORD See_Comment [Automate d message] The (test code = system which ge nerated 3600466107) this result tra nsmitted reference range : 27 - 49 mmHg. The refer ence range was not used to interpret this result as normal/abnormal . VENOUS PO2, CORD (test See_Comment [Aut omated message] The code = 5258284815) system [facility] generated this result tra nsmitted reference range : 17 - 41 mmHg. The refer ence range was not used to interpret this result as normal/abnormal . VENOUS BICARBONATE, See_Comment [Automa katie message] The CORD (test code = system whi ch generated 6604490579) this result tra nsmitted reference range : 12 - 29 mEq/L. The refe rence range was not used to interpret this result as normal/abnormal . [facility] HospitalHepatitis B Surface [id number] 17:01:36 Test Item Value Reference Range Interpretation Comments HBsAg Semi-Quantitative (test code = Negative Negative 5195-3) [facility] HospitalHIV 1/2 AG-AB WITH [id number] 11:36:11 Test Item Value Reference Range Interpretation Comments HIV Negative Negative Semi-quantitative (test code = 03951-6) LADARIUS (test code = Non-reactive for HIV-1 LADARIUS) antigen and HIV-1/HIV-2 antibodies. ?No laboratory evidence of HIV infection. ?Repeat in 2-4 weeks if acute HIV infection is suspected. [facility] HospitalCB with [id number] 11:07:29 Test Item Value Reference Range Interpretation Comments WBC (test code = See_Comment H [Automated 8290-2) message] The system which generated this result transmit katie reference range : 4.30 - 11.10 10*3/?L. The reference range was not used to interpret this result as normal/abnormal . RBC (test code = See_Comment [Automated 019-8) message] The system which generated this result [...] RDW-SD (test code = 48.1 fL 39.0-49.9 58821-6) RDW-CV (test code = 14.3 % 12.0-15.5 788-0) PLT (test code = See_Comment L [Automated 777-3) message] The system which generated this result transmit katie reference range : 166 - 358 10*3/ ?L. The reference range was not u sed to interpret th is result as normal/abnormal . MPV (test code = 12.1 fL 9.5-12.9 26438-7) NRBC/100 WBC (test See_Comment [Automat ed code = 7731920379) message] The system which generated this result transmit katie reference range : 0.0 - 10.0 /100 WBCs. The reference range was not used to interpret this result as normal/abnormal . NRBC x10^3 (test code <0.01 See_Comment [Auto mated = 8070529644) message] The system which generated this result transmit katie reference range : 10*3/?L. The reference range was not used to interpret this result as normal/abnormal . GRAN MAT (NEUT) % 75.0 % (test code = 770-8) IMM GRAN % (test code 0.70 % = 1769788899) LYMPH % (test code = 16.9 % 736-9) MONO % (test code = 5.3 % 5905-5) EOS % (test code = 1.8 % 713-8) BASO % (test code = 0.3 % 706-2) GRAN MAT x10^3(ANC) 11.06 10*3/uL 1.88-7.09 H (test code = 4348723898) IMM GRAN x10^3 (test 0.10 10*3/uL 0.00-0.06 H code = 1831492786) LYMPH x10^3 (test code 2.50 10*3/uL 1.32-3.29 = 731-0) MONO x10^3 (test code 0.78 10*3/uL 0.33-0.92 = 742-7) EOS x10^3 (test code = 0.27 10*3/uL 0.03-0.39 711-2) BASO x10^3 (test code 0.04 10*3/uL 0.01-0.07 = 704-7) Lab Interpretation Abnormal (test code = 61135-4) [facility] HospitalType and Screen - ONCE [id number] 10:38:47 Test Item Value Reference Range Interpretation Comments ABO & RH (test code O Positive Performe d at [facility] = 20) Laboratory Serv [facility] [place], [place] [id number] Free: [phone] A No. [id number] IAT (test code = Negative Performed a t [facility] 1185) Laboratory Serv [facility] [address] [place], [place] [id number] Free: [phone] A No. [id number] [facility] [id number] 18:14:47 Reactive and reassuringToco quiescent Sahil Rios MD ?10/15/2020 ?1:14 PM [facility] NON-STRESS [id number] 17:21:14 Reactive and reassuringToco quiescent Sahil Rios MD ?10/11/2020 ?11:21 AM [facility] NON-STRESS [id number] 20:31:15 Reactive and reassuringToco quiescent Sahil Rios MD ?10/08/2020 ?2:31 PM [facility] HospitalPOCT URINALYSIS W/O SPECIFIC [id number] 19:51:00 Test Item Value Reference Range Interpretation [...] code = 3257) N/A Negative - Negative [facility] HospitalFETAL NON-STRESS [id number] 18:35:43 Reactive and reassuring NSTUnNacogdoches Memorial HospitalBIOPHYSICAL PROFILE WITH NON-STRESS [id number] 15:14:47Addendum by Sahil Rios MD on 10/02/2020 9:16 AMNonreactive NST with baseline at 140s, moderate variability, no accels and no decels BPP 8/8 in 3 minutes, LANDON 9.82 cm Sahil Rios MD ?10/02/2020 ?9:14 AM BPP 8/8 in 3 minutes, LANDON 9.82 cm Sahil Rios MD ?10/02/2020 ?9:14 AMUnNacogdoches Memorial HospitalPOCT URINALYSIS W/O SPECIFIC GRAVITY 2020-08-13 16:36:00 Test [...] code = 3257) n/a Negative - Negative [facility] HospitalPOCT URINALYSIS W/O SPECIFIC [id number] 14:51:00 Test Item Value Reference Range Interpretation [...] Negative Lab Interpretation (test code = Normal 72013-1) [facility] URINALYSIS W/O SPECIFIC [id number] 14:56:00 Test Item Value Reference Range Interpretation [...] Negative Lab Interpretation (test code = Normal 05867-7) [facility] URINALYSIS W/O SPECIFIC [id number] 14:56:00 Test Item Value Reference Range Interpretation [...] Negative Lab Interpretation (test code = Normal 57209-4) [facility] URINALYSIS W/O SPECIFIC [id number] 21:34:00 Test Item Value Reference Range Interpretation [...] code = 3257) N/A Negative - Negative [facility] HospitalUS OB [id number] 23:11:27Limited USG for FHT: ?Single live IUP measured 9 0/7 weeks, consistent with LMP. ?Will date by LMP unless clinically indicated otherwise Sahil Rios MD ?03/21/2020 ?6:11 [facility] 2020-03-21 22:53:00 Test Item Value Reference Range Interpretation Comments BENZO U (test code = Negative Negative 3069343622) MATEO U (test code = Negative Negative 4092565830) AMPHET (test code = Negative Negative 9753571110) THC (test code = Negative Negative 6224472186) METHADONE (test code = Negative Negative 3942271122) Meth U (test code = Negative Negative 5113000779) OPIATES (test code = Negative Negative 3475920955) Cocaine Metabolite (test Negative Negative code = 3420313226) PROPOXY (test code = Negative Negative 4600720567) Tric U (test code = Negative Negative 9139914524) PCP (test code = Negative Negative 2708154240) OXYCOD (test code = Negative Negative 5473775310) LADARIUS (test code = LADARIUS) Urine Drug [...] testing). Lab Interpretation (test Normal code = 26650-9) [facility] [id number] 20:25:00 Test Item Value Reference Range Interpretation Comments POCT PREG (test code = 1605) Positive On board controls acceptable with C Yes Line (test code = 3574) POCT PREG LOT # (test code = 3575) POCT PREG TEST DATE (test code = 3576) Lab Interpretation (test code = Abnormal 44032-2) [facility] URINALYSIS W/O SPECIFIC [id number] 20:24:00 Test Item Value Reference Range Interpretation [...] Negative Lab Interpretation (test code = Normal 95068-2) [facility] [id number] 16:27:00 RUN DATE: 11/25/18 [facility] - LAB *LIVE* PAGE 1 RUN TIME: 1627 Specimen Inquiry RUN USER: INTERFACE PATIENT: GOLDIE ELDER LOC: LANRE U #: [id number] AGE/SX: 28/F ROOM: RE11/24/18[facility] DR: Froylan Ferguson III : 89 BED: DIS: STATUS: [facility] TLOC: SPEC #: PMC:[id number] RECD:11/24/18 STATUS: TYRA REQ #: [id number] TACO: 11/24/181106 SUBM DR: Froylan Ferguson III, MD ENTERED: 11/24/18 SP TYPE: SURG OTHR DR: Bryce Varghese Jr, MD ORDERED: SURG PATH LVL 10/02 COPIES TO: Bryce Varghese Jr, MD [address] [place] [address] [address] [facility] [id number] [place] [address] [place] [address] HISTOLOGY: TISSUE ID BLKPCS DEYSI LEV PROCEDURE DISPOSITION ____ ___ ___ ___ NASAL SEPTUM, N A 1 1 NASAL TURBINATE B 1 1 PROCEDURES: SURG PATH LVL 3 (11/24/18) TISSUES: A.NASAL SEPTUM, NOS - SEPTUM CONTENTS B. NASAL TURBINATE, NOS - BILATERAL TURBINATES CLINICAL HISTORY RHINITIS -J30.9; SINUSITIS -J32.9 CPT CODES CPT CODE(S): 86917 , 04350 , , , , , FINAL DIAGNOSIS A. Nasal septum, septoplasty: UNREMARKABLE SEGMENTS OF BONE AND CARTILAGE (GROSS DIAGNOSIS ONLY) B. Bilateral turbinates, excision: MILD CHRONIC INFLAMMATION CONTINUED ON NEXT PAGE RUN DATE: 11/25/18 [facility] - LAB *LIVE* PAGE 2 RUN TIME: 1627 Specimen Inquiry RUN USER: INTERFACE GRAHAM Cason #: [facility]:[id number] PATIENT: GOLDIE ELDER #[id number] (Continued) GROSS DESCRIPTION A. Septum contents. Received in formalin are multiple irregular fragments of cartilage and bones, 3.5 x 3.0 x 0.5 cm in aggregate. The specimen is for gross identification only and is photographed. B. Bilateral turbinates. Received in formalinare multiple irregular fragments of barbour-brown soft tissue admixed with dark brown blood clots, 3.0 x1.5 x 0.5 cm in aggregate. Flight Test Mechanic sections submitted as B. ba/nr Grossing performed at [facility] Pathology, [address] [place] [address], [address], [place] [address]. Shoe Stitcher: Roverto Jordan M.D. MICROSCOPIC DESCRIPTION A. Septum contents. No sections submitted. Gross diagnosis only. B. Bilateral turbinates. Sections demonstrate respiratory mucosa with underlying glands and mild chronicinflammation. Occasional segments of calcified material are also identified. No dysplasia or malignancy is seen. Signed SIGNATURE ON Marcel Shah 11/25/18 1627 END OF REPORT PROTHROMBIN [id number] 16:32:00 Test Item Value Reference Range Interpretation Comments PT PATIENT (test code = PTP) 10.6 SECONDS 9.3-12.9 N INTERNATIONAL NORMAL RATIO 0.92 INR Unit 0.8-1.2 N (test code = INR) THROMBOPLASTIN TIME [id number] 16:32:00 Test Item Value Reference Range Interpretation Comments THROMBOPLASTIN TIME PARTIAL 31.2 SECONDS 26-35 N (test code = PTT) HCG SERUM [id number] 16:26:00 Test Item Value Reference Range Interpretation Comments HCG SERUM QUAL (test SERUM NEGATIVE SCREEN NEGATIVE code = HCGQL) CBC W/AUTO [id number] 16:16:00 Test Item Value Reference Range Interpretation [...]
[2023-06-06] MEDS ORDERED: HYDROCODONE/APAP 7.5/325 MG TAB ONE (11:54)
--- NOTE | 2023-06-06 12:52 | RAD REPORT ---
EXAM DESCRIPTION: RAD - Foot Left 3 View - 06/06/2023 12:32 pm CLINICAL HISTORY: SMASH INJURY COMPARISON: Lumbar Spine 3 Views dated 04/15/2023 FINDINGS/IMPRESSION: Comminuted distal phalanx fracture involving the great toe. Some of the fractur e involves the DIP joint. Most of the fracture, however involves the mid diaphysis and tuft. Displace ment is minimal.
--- NOTE | 2023-06-06 13:07 | EDPHYS ---
Physician Documentation [facility] Name: Jodee Coley Age: 33 yrs Sex: Female : 1990 Arrival Date: 06/06/2023 Time: 11:13 Bed DIS2 Private MD: Rolan Naylor ED Physician Abad Long HPI: 06/06 11:37 This 33 yrs old Female presents to ER via Ambulatory with complaints of Toe jh7 Injury. 11:37 Onset: The symptoms/episode began/occurred yesterday. Table fell on the left great toe jh7 yesterday while the patient was at the store. She reports of bruising, swelling, pain, and difficulty with range of motion.. DIRECTOR DRUG SAFETY: 12:00 LMP N/A - , Not iw Historical: - Allergies: 11:38 No Known Allergies; iw - Home Meds: 11:38 Adderall XR Oral [Active]; iw - PSHx: 11:38 breast augmentation; rhinoplasty; Tummy tuck; iw - Immunization history:: Adult Immunizations unknown. - Social history:: Smoking status: . ROS: 11:37 Constitutional: Negative for fever, chills, and weight loss, Eyes: Negative for injury, jh7 pain, redness, and discharge, Neck: Negative for injury, pain, and swelling, Cardiovascular: Negative for chest pain, palpitations, and edema, Respiratory: Negative for shortness of breath, cough, wheezing, and pleuritic chest pain, Back: Negative for injury and pain, MS/Extremity: Negative for injury and deformity, Neuro: Negative for headache, weakness, numbness, tingling, and seizure, 11:37 MS/extremity: Positive for injury or acute deformity, contusion, decreased range of motion, pain, tenderness, of the left great toe, 11:37 All other systems are negative, Exam: 11:37 Constitutional: This is a well developed, well nourished patient who is awake, alert, jh7 and in no acute distress. Head/Face: Normocephalic, atraumatic. Neck: Trachea midline, no thyromegaly or masses palpated, and no cervical lymphadenopathy. Supple, full range of motion without nuchal rigidity, or vertebral point tenderness. No Meningismus. Cardiovascular: Regular rate and rhythm with a normal S1 and S2. No gallops, murmurs, or rubs. Normal PMI, no JVD. No pulse deficits. Respiratory: Lungs have equal breath sounds bilaterally, clear to auscultation and percussion. No rales, rhonchi or wheezes noted. No increased work of breathing, no retractions or nasal flaring. Skin: Warm, dry with normal turgor. Normal color with no rashes, no lesions, and no evidence of cellulitis. Neuro: Awake and alert, GCS 15, oriented to person, place, time, and situation. 11:37 Musculoskeletal/extremity: Extremities: noted in the Left great toe: contusion, decreased ROM, ecchymosis, pain, ROM: limited active range of motion, in the Left great toe, Circulation is intact in all extremities. Perfusion: the extremity is normally perfused throughout, pink, warm, with brisk capillary refill, Sensation intact. Vital Signs: 11:37 BP 128 / 89; Pulse 74; Resp 16; Temp 97.7; Pulse Ox 100% on R/A; Weight 81.65 kg; iw Height 5 ft. 2 in. ; Pain 6/10; 11:37 Body Mass Index 32.92 (81.65 kg, 157.48 cm) iw 11:37 Pain Scale: Adult iw MDM: 11:21 Patient medically screened. [facility] 13:06 Differential diagnosis: contusion, fracture, sprain. Data reviewed: vital signs, nurses [facility] notes, radiologic studies, plain films. I considered the following discharge prescriptions or medication management in the emergency department Medications were administered in the Emergency Department. See MAR. Counseling: I had a detailed discussion with the patient and/or guardian regarding the historical points, exam findings, and any diagnostic results supporting the discharge/admit diagnosis, the need for outpatient follow up, a orthopedic surgeon, to return to the emergency department if symptoms worsen or persist or if there are any questions or concerns that arise at home. Response to treatment: the patient's symptoms have mildly improved after treatment. Special discussion: Advised follow-up with orthopedist due to intra-articular fracture.. 06/06 11:28 Order name: XRAY Foot LEFT 3 View; Complete Time: 13:05 [facility] 06/06 13:06 Order name: Walking boot; Complete Time: 08:25 [facility] Administered Medications: 11:45 Drug: Hydrocodone-Acetaminophen PO (7.5 mg-325 mg) 1 tabs PO once Route: PO; iw 12:00 Follow up: Response: No adverse reaction Disposition: 17:06 Co-signature as Attending Physician, Aabd Long MD I reviewed the patient's care rn provided by the Advanced Practice Provider and agree with the diagnosis and treatment plan. Disposition Summary: 06/06/23 13:07 Discharge Ordered Notes: Location: Home [facility] Problem: new [facility] Symptoms: are unchanged [facility] Condition: Stable [facility] Diagnosis - Displaced fracture of distal phalanx of left great toe [facility] Followup: [facility] - With: Ezra Aburto MD - When: 2 - 3 days - Reason: Recheck today's complaints Discharge Instructions: - Discharge Summary Sheet [facility] - Toe Fracture [facility] - Walking Boot, Adult [facility] Forms: - Medication Reconciliation Form [facility] - Thank You Letter [facility] - Patient Portal Instructions [facility] - Leadership Thank You Letter [facility] Prescriptions: - Naprosyn 500 mg Oral Tablet - take 1 tablet ORAL route 2 times per day take with food; 30 tablet; Refills: 0, jh7 Product Selection Permitted Signatures: Dispatcher [employer] Ruchi Gaston, Abad Diane RN, MD MD rn Hadash, Jennifer, FNP LENS MAKER [facility]
--- NOTE | 2023-06-06 13:07 | ER ---
Nurse's Notes [facility] Name: Jodee Coley Age: 33 yrs Sex: Female : 1990 Arrival Date: 06/06/2023 Time: 11:13 Bed DIS2 Private MD: Rolan Naylor Diagnosis: Displaced fracture of distal phalanx of left great toe Presentation: 06/06 11:37 Chief complaint: Patient states: table top fell on left great toe , happened yesterday iw at home goods store. Coronavirus screen: At this time, the client does not indicate any symptoms associated with coronavirus-19. Ebola Screen: Patient negative for fever greater than or equal to 101.5 degrees Fahrenheit, and additional compatible Ebola Virus Disease symptoms Patient denies exposure to infectious person. Patient denies travel to an Ebola-affected area in the 21 days before illness onset. No symptoms or risks identified at this time. Initial Sepsis Screen: Does the patient meet any 2 criteria? No. Patient's initial sepsis screen is negative. Does the patient have a suspected source of infection? No. Patient's initial sepsis screen is negative. Risk Assessment: Do you want to hurt yourself or someone else? Patient reports no desire to harm self or others. Onset of symptoms was June 05, 2023. 11:37 Method Of Arrival: Ambulatory iw 11:37 Acuity: JYOTI 4 iw Triage Assessment: 12:00 General: Appears in no apparent distress. Behavior is calm, cooperative. iw UX UI DESIGNER: 12:00 LMP N/A - , Not iw Historical: - Allergies: 11:38 No Known Allergies; iw - Home Meds: 11:38 Adderall XR Oral [Active]; iw - PSHx: 11:38 breast augmentation; rhinoplasty; Tummy tuck; iw - Immunization history:: Adult Immunizations unknown. - Social history:: Smoking status: . Screenin:40 [facility] ED Fall Risk Assessment (Adult) Score/Fall Risk Level 0 - 2 = Low Risk. Abuse iw screen: Denies threats or abuse. Denies injuries from another. Nutritional screening: No deficits noted. Tuberculosis screening: No symptoms or risk factors identified. Assessment: 12:00 General: Appears uncomfortable, Behavior is calm, cooperative. Pain: Complains of pain iw in left foot. Neuro: Level of Consciousness is awake, alert, obeys commands, Oriented to person, place, time, situation, Moves all extremities. Cardiovascular: Patient's skin is warm and dry. Derm: Skin is intact, is healthy with good turgor. Musculoskeletal: Range of motion: Swelling present in left first toe and Left first toenail. Vital Signs: 11:37 BP 128 / 89; Pulse 74; Resp 16; Temp 97.7; Pulse Ox 100% on R/A; Weight 81.65 kg; iw Height 5 ft. 2 in. ; Pain 6/10; 11:37 Body Mass Index 32.92 (81.65 kg, 157.48 cm) iw 11:37 Pain Scale: Adult iw ED Course: 11:16 Patient arrived in ED. rg4 11:16 Rolan Naylor MD is Private Physician. rg4 11:21 Elise Iqbal FNP is [facility]. jh7 11:21 Abad Long MD is Attending Physician. 7 11:38 Triage completed. iw 11:39 Arm band placed on. iw 11:45 Ruchi Wiseman RN is Primary Nurse. iw 12:00 Patient has correct armband on for positive identification. Provided Education on: . iw 12:34 XRAY Foot LEFT 3 View In Process Unspecified. EDMS 13:06 Ezra Aburto MD is Referral Physician. [facility] 13:47 No provider procedures requiring assistance completed. Patient did not have IV access iw during this emergency room visit. Administered Medications: 11:45 Drug: Hydrocodone-Acetaminophen PO (7.5 mg-325 mg) 1 tabs PO once Route: PO; iw 12:00 Follow up: Response: No adverse reaction iw Medication: 12:00 VIS not applicable for this client. iw Outcome: 13:07 Discharge ordered by . 7 13:47 Discharged to home ambulatory, iw 13:47 Condition: good 13:47 Discharge instructions given to patient, Instructed on discharge instructions, follow up and referral plans. Demonstrated understanding of instructions, follow-up care, medications, Prescriptions given X 1, 13:48 Patient left the ED. iw Signatures: Dispatcher [employer] EDMS Ruchi Wiseman RN RN iw Shira Cormier rg4 Elise Iqbal FNP [place] [address] Corrections: (The following items were deleted from the chart) 11:39 11:37 Pulse 74bpm; Resp 16bpm; Pulse Ox 100% RA; Temp 97.7F; 81.65 kg; Height 5 ft. 2 iw in.; BMI: 32.9; Pain 01/10, Adult; iw 06/07 10:50 06/06 13:47 Discharge instructions given to patient, Instructed on discharge iw instructions, follow up and referral plans. Demonstrated understanding of instructions, follow-up care, medications, Prescriptions given X 2, iw
[2023-06-06 14:12] VITALS: BP 128/89; TEMP 97.7; O2SAT 100
== END 2023-06-06 13:48 | disposition home or self-care (01) ==
LOC: ER 11:13
DX: S92.422A Displaced fracture of distal phalanx of left great toe, initial encounter for closed fracture (principal)
CPT/HCPCS: 99283